=== PATIENT | male | born 1960 | race Caucasian/White ===

== ENCOUNTER 2018-10-18 03:41 | Emergency (ER) | payer OTHER ==
[2018-10-18] MEDS ORDERED: ETOMIDATE 20 MG/10 ML VIAL IV ONE (03:42)
[2018-10-18] MEDS ORDERED: NALOXONE 0.4 MG/ML VIAL ONE (05:11)
[2018-10-18] MEDS ORDERED: NA CHLORIDE 0.9% 1,000 ML ONE (05:11)
[2018-10-18] MEDS ORDERED: ONDANSETRON 4 MG/2 ML VIAL ONE (05:27)
[2018-10-18 05:50] LABS: ALT/SGPT 19 U/L (12-78); AST/SGOT 9 U/L (15-37); Albumin 3.3 g/dL (3.4-5.0); Alkaline Phosphatase 72 U/L (45-117); BUN Blood Urea Nitrogen 18 mg/dL (7-18); Bicarbonate 25 mmol/L (21-32); Bilirubin Total 0.9 mg/dL (0.2-1.0); Glucose Level 133 mg/dL (74-106); Potassium 3.5 mmol/L (3.5-5.1); Protein, Total 7.2 g/dL (6.4-8.2); Sodium Level 135 mmol/L (136-145)
[2018-10-18 06:22] LABS: Absolute Lymphocytes (CBC) 0.4 K/uL (0.7-4.9); Basophils % 0.1 % (0-1.3); Hematocrit 35.9 % (39.6-49.0); Lymphocytes % 2.5 % (15.3-44.8); MPV 9.5 fL (7.6-11.3); Monocytes % 6.7 % (3.3-12.3); RBC Red Blood Cell Count 4.01 M/uL (4.33-5.43)
[2018-10-18 07:12] LABS: Blood Morphology Comment NOT SEEN (NOT SEEN); Platelet Estimate ADEQ; Urine White Blood Cell Casts OK
[2018-10-18] MEDS ORDERED: VANCOMYCIN/NS 1 gm 1 GM/250 ML BAG IV ONE (07:30)
[2018-10-18] MEDS ORDERED: CEFTRIAXONE/SWI 1gm 1 GM/10 ML SYR ONE (07:33)
[2018-10-18] MEDS ORDERED: ACETAMINOPHEN 650MG/RECT SUPP PR ONE (07:55)
[2018-10-18] MEDS ORDERED: ACYCLOVIR INJ 800 MG in NA CHLORIDE 0.9% 100 ML IVPB ONE (08:00)
--- NOTE | 2018-10-18 08:04 | RAD REPORT ---
EXAM DESCRIPTION: RAD - Chest Single View - 10/18/2018 7:46 am CLINICAL HISTORY: Altered mental status, shortness of breath COMPARISON: None. TECHNIQUE: AP portable chest image was obtained 0742 hours . FINDINGS: No focal lung parenchymal process. No failure or volume overload. Heart and vasculature ar e normal. No measurable pleural effusion and no pneumothorax. No acute bony abnormality seen. No acut e aortic findings suspected. IMPRESSION: No acute cardiopulmonary process.
[2018-10-18] MEDS ORDERED: LORazepam 2 MG/ML VIAL ONE (08:07)
[2018-10-18] MEDS ORDERED: MIDAZOLAM HCL 2 MG/2 ML INJ ONE (08:07)
[2018-10-18] MEDS ORDERED: FENTANYL CITR 100 MCG/2 ML ONE (08:08)
[2018-10-18 08:12] LABS: Barbiturates NEGATIVE (NEGATIVE); Benzodiazepines NEGATIVE (NEGATIVE); Cocaine NEGATIVE (NEGATIVE); METHAMPHETAM NEGATIVE (NEGATIVE); Methadone NEGATIVE (NEGATIVE); Opiates POSITIVE (NEGATIVE); Phencyclidine NEGATIVE (NEGATIVE); THC Cannibis NEGATIVE (NEGATIVE)
[2018-10-18 08:15] LABS: Urine Blood NEGATIVE (NEG); Urine Glucose NEGATIVE (NEG); Urine Protein 1+ (NEG); Urine Specific Gravity 1.025 (1.005-1.030); Urine pH 5.5 (5.0-7.0)
[2018-10-18 09:12] LABS: CSF Glucose 32 mg/dL (40-70)
[2018-10-18 09:43] LABS: Urine Amorphous Sediment 1+ /HPF (NONE SEEN); Urine Bacteria NONE SEEN /HPF (NONE SEEN); Urine Culture Reflex Order NOT NEEDED; Urine Mucus HEAVY /HPF (NONE SEEN); Urine RBC <5 /HPF (NONE SEEN)
[2018-10-18] MEDS ORDERED: ASPIRIN 600 MG/SUPP PR ONE (09:45)
--- NOTE | 2018-10-18 09:47 | EDPHYS ---
Physician Documentation [facility] Name: Jared Cutler Age: 58 yrs Sex: Male : 1960 Arrival Date: 10/18/2018 Time: 03:42 Bed 3 Private MD: ED Physician Dl Peguero HPI: 10/18 05:48 This 58 yrs old Male presents to ER via Wheelchair with complaints of Head \T\ ps1 Neck Pain, Altered Mental Status. 05:48 patient had head and neck pain for 3 days. Was seen and evaluated by PCP and was given ps1 T3, Flexeril, and Phenergan. He has taken the medication for 2 days. He was on the couch and went to check on him. He was non-sensical and altered. He does not appear to have overdosed on medication. He is slow to respond but responds to his name and gives minimal history. at bedside providing history. He has not had a fever and attested to msk pain and spasm. . Historical: - Allergies: 03:59 No Known Allergies; tl2 - Home Meds: 03:59 None [Active]; tl2 - PMHx: 03:59 Degenerative disc disease; tl2 - PSHx: 03:59 None; tl2 - Immunization history:: Adult Immunizations up to date. - Social history:: Smoking status: Patient/guardian denies using tobacco. - Ebola Screening: : No symptoms or risks identified at this time. ROS: 05:48 Constitutional: Negative for fever, chills, and weight loss, Eyes: Negative for injury, ps1 pain, redness, and discharge, Cardiovascular: Negative for chest pain, palpitations, and edema, Respiratory: Negative for shortness of breath, cough, wheezing, and pleuritic chest pain, Abdomen/GI: Negative for abdominal pain, nausea, vomiting, diarrhea, and constipation. 05:48 Neck: Positive for bony tenderness. Exam: 05:48 Head/Face: Normocephalic, atraumatic. Eyes: Pupils equal round and reactive to light, ps1 extra-ocular motions intact. Lids and lashes normal. Conjunctiva and sclera are non-icteric and not injected. Chest/axilla: Normal chest wall appearance and motion. Nontender with no deformity. No lesions are appreciated. Cardiovascular: Regular rate and rhythm. No gallops, murmurs, or rubs. Normal PMI, no JVD. No pulse deficits. Respiratory: Lungs have equal breath sounds bilaterally, clear to auscultation and percussion. No rales, rhonchi or wheezes noted. No increased work of breathing, no retractions or nasal flaring. Abdomen/GI: Soft, non-tender, with normal bowel sounds. No distension or tympany. No guarding or rebound. No evidence of tenderness throughout. MS/ Extremity: Pulses equal, no cyanosis. Neurovascular intact. Full, normal range of motion. Neuro: Awake and alert, GCS 15, oriented to person, place, time, and situation. Cranial nerves II-XII grossly intact. Sensory grossly intact. Psych: Awake, alert, with orientation to person, place and time. Behavior, mood, and affect are within normal limits. 05:48 Constitutional: The patient appears in no acute distress, alert, awake, listless. Vital Signs: 03:48 BP 139 / 83; Pulse 76; Resp 18; Temp 98.7(A); Pulse Ox 95% on R/A; Weight 77.11 kg; tl2 Height 5 ft. 11 in. (180.34 cm); 04:33 BP 145 / 60; Pulse 52; Resp 18; Pulse Ox 100% on R/A; tl2 05:38 BP 150 / 70; Pulse 72; Resp 24; Pulse Ox 100% on NC; tl2 06:28 BP 140 / 73; Pulse 59; Resp 20; Temp 99.7(A); Pulse Ox 100% on R/A; tl2 07:36 Temp 101.7(R); sv 08:10 BP 118 / 71; Pulse 61; Resp 21; Pulse Ox 98% ; sv 08:30 BP 142 / 108; Pulse 62; Resp 25; Pulse Ox 100% on 2 lpm NC; sv 09:00 BP 98 / 82; Pulse 67; Resp 25; Temp 101.5(C); Pulse Ox 99% on 2 lpm NC; sv 09:15 BP 125 / 112; Pulse 68 MON; Resp 25; Temp 101.7(C); Pulse Ox 98% on 2 lpm NC; sv 09:37 BP 138 / 68; Pulse 71; Resp 26; Temp 101.4(C); Pulse Ox 100% on 2 lpm NC; sv 10:18 BP 152 / 52; Pulse 65; Resp 23; Temp 101.2(C); Pulse Ox 100% on 2 lpm NC; sv 10:35 BP 146 / 65; Pulse 91; Resp 18; Pulse Ox 100% on ETT ambu; sv 10:45 BP 147 / 69; Pulse 88; Resp 20; Temp 101.1(C); Pulse Ox 100% on ETT ambu; sv 11:04 BP 165 / 79; Pulse 66; Resp 18; Temp 100.9(C); Pulse Ox 100% on 100% FiO2 ETT vent; sv 03:48 Body Mass Index 23.71 (77.11 kg, 180.34 cm) tl2 09:15 Sinus Rhythm sv Procedures: 11:58 Intubation: Ventilated with 100% NRB prior to procedure. O2 saturation prior to jr8 procedure was 100 %. Intubated orally using # 4 Miguel blade with 7.5 mm ETT. was successful on first attempt. Ventilated with Ambu bag. ventilator. Cricoid pressure applied during procedure. Tube secured with ETT orona at center of mouth measured 23 cm at lip. Placement verified by CXR, CO2 detector with (+) color change, auscultating bilateral breath sounds, O2 saturation after procedure was 100 %. Patient tolerated well. Lumbar Puncture: Patient placed in left lateral decubitus position. Prepped with Betadine. Draped using sterile technique. Collected 8 ml's of cloudy fluid. Sample sent to lab. Puncture site dressed with band aid, Patient tolerated well. MDM: 04:53 Patient medically screened. ps1 09:39 Data reviewed: vital signs, nurses notes, lab test result(s), radiologic studies, CT jr8 scan, plain films. Data interpreted: Pulse oximetry: on room air is 100 %. Interpretation: normal. Counseling: I had a detailed discussion with the patient and/or guardian regarding: the historical points, exam findings, and any diagnostic results supporting the discharge/admit diagnosis, lab results, radiology results, the need to transfer to another facility, for higher level of care, [facility] does not immediately have the required specialist. 11:58 ED course: After patient was transferred to [place] by Dr. Peguero patient shortly after jr8 started to have abrupt decline in mental status. Upon further assessment of patient, he started to run fever and was not moving right side of body. Was fasciculating on right side and had hyperreflexia. Left side still with involuntary and voluntary movement. Patient covered with antibiotics and Lumbar puncture was completed. Concerning signs for meningitis noted upon assessment of CSF fluid. Charge Nurse, ID, and family notified of this and was later confirmed via cytology that patient more then likely dose have some type of infectious meningitis. Directigen and fungal stains were sent out urgently. [facility] was contacted and accepted patient for Neuro ICU. Family was notified routinely of status of patient and was very grateful . 11:58 ED course: Patient was electively intubated to maintain patent airway as patient became jr8 more obtunded. It was felt that at this time patient could not maintain his own airway due to condition and mental status. Intubation was successful . 10/18 04:53 Order name: CBC with Diff; Complete Time: 07:20 ps1 10/18 04:53 Order name: CMP; Complete Time: 06:13 ps1 10/18 04:53 Order name: Lactate; Complete Time: 06:13 ps1 10/18 04:53 Order name: Blood Culture Adult (2) ps1 10/18 06:38 Order name: CBC Smear Scan; Complete Time: 07:20 EDMS 10/18 07:03 Order name: CSF Bacterial Antigens (tube 1) ps1 10/18 07:03 Order name: Csf Culture ps1 10/18 07:03 Order name: Fluid Cell Count,Body; Complete Time: 10:12 ps1 10/18 07:03 Order name: Spinal Fluid Profile; Complete Time: 10:11 ps1 10/18 07:04 Order name: CSF Bacterial Antigens (Tube 1; Complete Time: 09:31 EDMS 10/18 07:35 Order name: Urine Drug Screen; Complete Time: 08:53 sv 10/18 07:42 Order name: Urine Microscopic Only; Complete Time: 09:49 ss 10/18 07:42 Order name: Urine Microscopic Only jr8 10/18 07:45 Order name: Urine Dipstick--Ancillary (enter results); Complete Time: 08:53 bd 10/18 04:53 Order name: CT Head C Spine; Complete Time: 13:28 ps1 10/18 07:03 Order name: CXR XRAY; Complete Time: 08:53 ps1 10/18 07:53 Order name: Magnesium; Complete Time: 08:53 sg 10/18 09:28 Order name: Miscellaneous Micro Reference; Complete Time: 10:09 EDMS 10/18 10:21 Order name: Fungal Culture and Stain EDMS 10/18 10:42 Order name: XRAY Chest (1 view); Complete Time: 11:18 jr8 10/18 07:03 Order name: Urine Dipstick-Ancillary (obtain specimen); Complete Time: 07:36 ps1 10/18 07:03 Order name: LP Consents; Complete Time: 07:14 ps1 10/18 07:03 Order name: LP Setup; Complete Time: 07:14 ps1 10/18 08:55 Order name: Misc. Order: droplet precautions; Complete Time: 08:55 ss 10/18 11:04 Order name: NG Tube; Complete Time: 11:04 sg Administered Medications: 05:05 Drug: NS 0.9% 1000 ml Route: IV; Rate: 1 bolus; Site: right antecubital; tl2 06:28 Follow up: IV Status: Completed infusion; IV Intake: 1000ml tl2 05:05 Drug: NARcan 0.4 mg Route: IVP; Site: right antecubital; tl2 05:30 Follow up: Response: No adverse reaction; No change in condition tl2 05:13 Drug: Zofran 4 mg Route: IVP; Site: right antecubital; tl2 05:30 Follow up: Response: No adverse reaction; Nausea is decreased tl2 07:48 Drug: Tylenol Suppository 650 mg {Note: administered by Milady BARTON} Route: ID; sg 08:30 Follow up: Response: No adverse reaction sv 07:56 Drug: Ativan 1 mg Route: IVP; Site: right antecubital; sv 08:30 Follow up: Response: No adverse reaction sv 07:57 Drug: Rocephin - (cefTRIAXone) 1 grams Route: IVPB; Infused Over: 30 mins; Site: right sv antecubital; 07:59 Follow up: Response: No adverse reaction; IV Status: Completed infusion; IV Intake: 10mlsv 07:59 Drug: vancoMYCIN 1 grams Route: IVPB; Infused Over: 2 hrs; Site: right antecubital; sv 10:17 Follow up: Response: No adverse reaction; IV Status: Completed infusion; IV Intake: sv 250ml 08:00 Not Given (Other Intervention Used): Acyclovir 100 mg IVPB once ss 08:05 Drug: fentaNYL (PF) 50 mcg Route: IVP; Site: right antecubital; sv 08:30 Follow up: Response: No adverse reaction sv 08:06 Drug: Versed 2 mg Route: IVP; Site: right antecubital; sv 08:30 Follow up: Response: No adverse reaction sv 09:05 Drug: Acyclovir 10 mg/kg Route: IVPB; Site: left forearm; sv 09:37 Drug: Aspirin Suppository 600 mg Route: ID; sv 10:18 Follow up: Response: No adverse reaction sv 10:17 Drug: NS 0.9% 1000 ml Route: IV; Rate: 100 ml/hr; Site: left forearm; sv 11:34 Follow up: Response: No adverse reaction; IV Status: Infusion continued upon transfer sv 10:29 Drug: Etomidate 10 mg Route: IVP; Site: left forearm; sv 10:45 Follow up: Response: No adverse reaction sv 10:30 Drug: Rocuronium 80 mg Route: IVP; Site: left forearm; sv 10:45 Follow up: Response: No adverse reaction sv 10:47 Not Given (other order): Versed 0.05 mg/kg IV at calculated rate once ss 11:34 CANCELLED (Physician Discretion): Versed 0.05 mg/kg/h IV at calculated rate once sv 18:17 CANCELLED (given back to pharmacy): fentaNYL (PF) 1 mcg/kg/h IV at calculated rate once sv Point of Care Testing: Blood Glucose: 03:50 Blood Glucose: 158 mg/dL; tl2 Ranges: Critical Glucose Levels:Adult <50 mg/dl or >400 mg/dl <40 mg/dl or >180 mg/dl Disposition: 22:16 Co-signature as Attending Physician, Dl Peguero MD Available for consultation at ps1 all times. . Disposition: 10/18/18 09:41 Transfer ordered to [facility]. Diagnosis is Meningitis in bacterial diseases classified elsewhere. - Reason for transfer: Higher level of care. - Accepting physician is Dr. Orozco . - Condition is Serious. - Problem is new. - Symptoms have worsened. Critical care time excluding procedures: 12:07 Critical care time: Bedside Care: 30 minutes, Consultation: 15 minutes, Family jr8 Intervention: 15 minutes. Total time: 60 minutes Signatures: Dispatcher [employer] Milady Cao, RN Tomas Bautista RN MANDY sg Yoselin Katz RN RN ss Roszak, Josh, PA PA jr8 Adela Jimenez, RN RN tl2 Dl Peguero MD MD ps1 Corrections: (The following items were deleted from the chart) 10:56 09:41 10/18/2018 09:41 Transfer ordered to [facility]. Diagnosis is jr8 Meningitis in bacterial diseases classified elsewhere. Reason for transfer: Higher level of care. Accepting physician is [facility]. Condition is Serious. Problem is new. Symptoms have worsened. jr8 11:20 10:56 10/18/2018 09:41 Transfer ordered to [facility]. Diagnosis is sg Meningitis in bacterial diseases classified elsewhere. Reason for transfer: Higher level of care. Accepting physician is Dr. Orozco . Condition is Serious. Problem is new. Symptoms have worsened. jr8 21:56 05:48 patient had head and neck pain for 3 days. Was seen and evaluated by PCP and was ps1 given T3, Flexeril, and Phenergan. He has taken the medication for 2 days. He was on the couch and went to check on him. He was non-sensical and altered. He does not appear to have overdosed on medication. He is slow to respond but responds to his name and gives minimal history. at bedside providing. . ps1
--- NOTE | 2018-10-18 09:47 | ER ---
Nurse's Notes [facility] Name: Jared Cutler Age: 58 yrs Sex: Male : 1960 Arrival Date: 10/18/2018 Time: 03:42 Bed 3 Private MD: Diagnosis: Meningitis in bacterial diseases classified elsewhere Presentation: 10/18 03:56 Presenting complaint: states: Pt c/o head/neck pain since Wednesday, loss of tl2 appetite. Saw PCP yesterday and was prescribed pain medication and referred to MRI. Pt states that she had a normal conversation with him at 10 pm and when she woke him up to take medication at 3 am this morning, he was confused and didn't know her name. Pt is lethargic, oriented to person only and slow to follow commands. Transition of care: patient was not received from another setting of care. Onset of symptoms was October 18, 2018 at 03:00. Risk Assessment: Do you want to hurt yourself or someone else? Patient reports no desire to harm self or others. Initial Sepsis Screen: Does the patient meet any 2 criteria? No. Patient's initial sepsis screen is negative. Does the patient have a suspected source of infection? No. Patient's initial sepsis screen is negative. Care prior to arrival: None. 03:56 Method Of Arrival: Wheelchair tl2 03:56 Acuity: CLIFFORD 2 tl2 Triage Assessment: 03:59 General: Appears in no apparent distress. unkempt, Behavior is drowsy, listless. Pain: tl2 Complains of pain in head and neck. Neuro: Level of Consciousness is awake, confused, lethargic, Oriented to person. Cardiovascular: Denies chest pain. Respiratory: Airway is patent Respiratory effort is even, unlabored, Respiratory pattern is regular, symmetrical. GI: Parent/caregiver reports the patient having anorexia, nausea. : No signs and/or symptoms were reported regarding the genitourinary system. Derm: Skin is pink, warm \T\ dry. Historical: - Allergies: 03:59 No Known Allergies; tl2 - Home Meds: 03:59 None [Active]; tl2 - PMHx: 03:59 Degenerative disc disease; tl2 - PSHx: 03:59 None; tl2 - Immunization history:: Adult Immunizations up to date. - Social history:: Smoking status: Patient/guardian denies using tobacco. - Ebola Screening: : No symptoms or risks identified at this time. Screenin:01 Abuse screen: Denies threats or abuse. Nutritional screening: No deficits noted. tl2 Tuberculosis screening: No symptoms or risk factors identified. Fall Risk Gait- Weak (10 pts.). Assessment: 03:59 General: see triage assessment. tl2 05:37 Reassessment: Patient appears in no apparent distress at this time. No changes from tl2 previously documented assessment. pt is restless but remains confused and altered. Will respond when spoken to but does not give appropriate response. Pt returned from CT, fluids infusing, VSS. 06:53 Reassessment: MD notified of increased temp, no new orders at this time. Reassessment: tl2 Patient appears in no apparent distress at this time. General: Behavior is restless. Neuro: Level of Consciousness is confused, lethargic. Neuro: Oriented to person. 07:10 General: Appears uncomfortable, well developed, Behavior is restless, uncooperative, sv not answering questions, unable to follow commands.. Informed Jude CRISOSTOMO of pt's reason for visit, pt status, not responsive, uncooperative, not moving the right arm or leg. Informed that the pt's spouse had informed me that last week he had been c/o head, neck pain and pain that had gone to the left side of the face. He went to [facility] in [place] [facility] and they told her he was tested for meningitis and was negative, an LP was not done. . Pain: Unable to use pain scale. Patient is disoriented. Does not appear to understand pain scale. Patient appears restless, FLACC scale score is 0 out of 10. Neuro: Level of Consciousness is confused, lethargic, listless, obtunded, Oriented to none Full function in left arm(s) leg(s) does not move the right arm or leg. Speech not speaking. Facial symmetry appears normal. Cardiovascular: Heart tones S1 S2 present Pulses are 3+ in right radial artery and left radial artery Rhythm is sinus rhythm. Respiratory: Airway is patent Respiratory effort is even, unlabored, Respiratory pattern is symmetrical, tachypnea Breath sounds are clear bilaterally. GI: Abdomen is flat. Derm: Skin is dry, Skin is normal, Skin temperature is hot. 07:38 Reassessment: No changes from previously documented assessment. Patient and/or family sv updated on plan of care and expected duration. Pain level reassessed. Informed Jude CRISOSTOMO of rectal temp, Jude CRISOSTOMO to bedside to assess pt. 08:00 Reassessment: No changes from previously documented assessment. Patient and/or family sv updated on plan of care and expected duration. Pain level reassessed. Jude CRISOSTOMO at bedside to get ready for the LP. 08:30 Reassessment: No changes from previously documented assessment. Patient and/or family sv updated on plan of care and expected duration. Pain level reassessed. 09:05 Reassessment: No changes from previously documented assessment. Patient and/or family sv updated on plan of care and expected duration. Pain level reassessed. 09:37 Reassessment: No changes from previously documented assessment. Patient and/or family sv updated on plan of care and expected duration. Pain level reassessed. 10:20 Reassessment: No changes from previously documented assessment. Patient and/or family sv updated on plan of care and expected duration. Pain level reassessed. Jude CRISOSTOMO and bedside with myself and Carole SANDOVAL to get ready for intubation. 11:00 Reassessment: Patient appears in no apparent distress at this time. Patient and/or sv family updated on plan of care and expected duration. Pain level reassessed. Pt is intubated at this time. 11:02 Reassessment: life flight at bedside at this time. Vital Signs: 03:48 BP 139 / 83; Pulse 76; Resp 18; Temp 98.7(A); Pulse Ox 95% on R/A; Weight 77.11 kg; tl2 Height 5 ft. 11 in. (180.34 cm); 04:33 BP 145 / 60; Pulse 52; Resp 18; Pulse Ox 100% on R/A; tl2 05:38 BP 150 / 70; Pulse 72; Resp 24; Pulse Ox 100% on NC; tl2 06:28 BP 140 / 73; Pulse 59; Resp 20; Temp 99.7(A); Pulse Ox 100% on R/A; tl2 07:36 Temp 101.7(R); sv 08:10 BP 118 / 71; Pulse 61; Resp 21; Pulse Ox 98% ; sv 08:30 BP 142 / 108; Pulse 62; Resp 25; Pulse Ox 100% on 2 lpm NC; sv 09:00 BP 98 / 82; Pulse 67; Resp 25; Temp 101.5(C); Pulse Ox 99% on 2 lpm NC; sv 09:15 BP 125 / 112; Pulse 68 MON; Resp 25; Temp 101.7(C); Pulse Ox 98% on 2 lpm NC; sv 09:37 BP 138 / 68; Pulse 71; Resp 26; Temp 101.4(C); Pulse Ox 100% on 2 lpm NC; sv 10:18 BP 152 / 52; Pulse 65; Resp 23; Temp 101.2(C); Pulse Ox 100% on 2 lpm NC; sv 10:35 BP 146 / 65; Pulse 91; Resp 18; Pulse Ox 100% on ETT ambu; sv 10:45 BP 147 / 69; Pulse 88; Resp 20; Temp 101.1(C); Pulse Ox 100% on ETT ambu; sv 11:04 BP 165 / 79; Pulse 66; Resp 18; Temp 100.9(C); Pulse Ox 100% on 100% FiO2 ETT vent; sv 03:48 Body Mass Index 23.71 (77.11 kg, 180.34 cm) tl2 09:15 Sinus Rhythm sv ED Course: 03:42 Patient arrived in ED. ds1 03:59 Triage completed. tl2 03:59 Arm band placed on right wrist. tl2 04:02 Dl Peguero MD is Attending Physician. ps1 04:06 Inserted saline lock: 20 gauge in right antecubital area, using aseptic technique. tl2 Blood collected. 04:33 Adela Jimenez RN is Primary Nurse. tl2 05:44 CT Head C Spine In Process Unspecified. EDMS 07:06 Report given to MANDY Henning. tl2 07:07 Jude Perez PA is PHCP. jr8 07:14 Consent for a lumbar puncture explained by staff, signed by spouse. sv 07:23 Radiology exam delayed due to nurse straight cathing pt. ls3 07:35 Straight cath inserted, using sterile technique, 16 Fr. Specimen obtained. Returned sv margy urine. Patient tolerated poorly. 07:45 CXR XRAY In Process Unspecified. EDMS 08:09 Assist provider with lumbar puncture: Set up LP tray. Performed by Jude CRISOSTOMO CSF sv is cloudy. Sample collected. Sample sent to lab. Puncture site dressed with band aid, Procedure was successful. Patient tolerated poorly. 09:00 Inserted saline lock: 20 gauge in left forearm, using aseptic technique. Flushed left sv forearm with 5 ml normal saline. 09:03 Primary Nurse role handed off by Adela Jimenez RN sv 09:03 Milady Alejandro RN is Primary Nurse. sv 09:39 Urine Microscopic Only Sent. sv 09:39 CSF Bacterial Antigens (tube 1) Sent. sv 10:32 Assisted provider with intubation using 7.5 mm ETT via oral route. ET tube secured at sv 23cm at the teeth. Set up intubation tray. Intubated by Jude CRISOSTOMO Placement verified by CXR, CO2 detector w/ + color change, auscultating bilateral breath sounds, Patient tolerated well. 10:50 Valuables Left with patient. bd 10:51 XRAY Chest (1 view) In Process Unspecified. EDMS 11:03 NGT: inserted 14 Fr. via left nare. verified placement of air over stomach, verified sg return of gastric contents, to intermittent suction. Patient tolerated well. pt to have continued low intermittent suction in route to [facility]. 11:15 Patient transferred, IV remains in place. intact. sv Administered Medications: 05:05 Drug: NS 0.9% 1000 ml Route: IV; Rate: 1 bolus; Site: right antecubital; tl2 06:28 Follow up: IV Status: Completed infusion; IV Intake: 1000ml tl2 05:05 Drug: NARcan 0.4 mg Route: IVP; Site: right antecubital; tl2 05:30 Follow up: Response: No adverse reaction; No change in condition tl2 05:13 Drug: Zofran 4 mg Route: IVP; Site: right antecubital; tl2 05:30 Follow up: Response: No adverse reaction; Nausea is decreased tl2 07:48 Drug: Tylenol Suppository 650 mg {Note: administered by Milady GALVAN.} Route: DC; sg 08:30 Follow up: Response: No adverse reaction sv 07:56 Drug: Ativan 1 mg Route: IVP; Site: right antecubital; sv 08:30 Follow up: Response: No adverse reaction sv 07:57 Drug: Rocephin - (cefTRIAXone) 1 grams Route: IVPB; Infused Over: 30 mins; Site: right sv antecubital; 07:59 Follow up: Response: No adverse reaction; IV Status: Completed infusion; IV Intake: 10mlsv 07:59 Drug: vancoMYCIN 1 grams Route: IVPB; Infused Over: 2 hrs; Site: right antecubital; sv 10:17 Follow up: Response: No adverse reaction; IV Status: Completed infusion; IV Intake: sv 250ml 08:00 Not Given (Other Intervention Used): Acyclovir 100 mg IVPB once ss 08:05 Drug: fentaNYL (PF) 50 mcg Route: IVP; Site: right antecubital; sv 08:30 Follow up: Response: No adverse reaction sv 08:06 Drug: Versed 2 mg Route: IVP; Site: right antecubital; sv 08:30 Follow up: Response: No adverse reaction sv 09:05 Drug: Acyclovir 10 mg/kg Route: IVPB; Site: left forearm; sv 09:37 Drug: Aspirin Suppository 600 mg Route: DC; sv 10:18 Follow up: Response: No adverse reaction sv 10:17 Drug: NS 0.9% 1000 ml Route: IV; Rate: 100 ml/hr; Site: left forearm; sv 11:34 Follow up: Response: No adverse reaction; IV Status: Infusion continued upon transfer sv 10:29 Drug: Etomidate 10 mg Route: IVP; Site: left forearm; sv 10:45 Follow up: Response: No adverse reaction sv 10:30 Drug: Rocuronium 80 mg Route: IVP; Site: left forearm; sv 10:45 Follow up: Response: No adverse reaction sv 10:47 Not Given (other order): Versed 0.05 mg/kg IV at calculated rate once ss 11:34 CANCELLED (Physician Discretion): Versed 0.05 mg/kg/h IV at calculated rate once sv 18:17 CANCELLED (given back to pharmacy): fentaNYL (PF) 1 mcg/kg/h IV at calculated rate once sv Point of Care Testing: Blood Glucose: 03:50 Blood Glucose: 158 mg/dL; tl2 Ranges: Intake: 06:28 IV: 1000ml; Total: 1000ml. tl2 07:59 IV: 10ml; Total: 1010ml. sv 10:17 IV: 250ml; Total: 1260ml. sv Outcome: 09:41 ER care complete, transfer ordered by . jr8 11:20 Patient left the ED. sg 11:31 Transferred by helicopter to [facility], [facility], Transfer form completed. sv X-rays sent w/ patient. Note: Report given to Ronn from [facility] 11:31 Condition: unchanged 11:31 Instructed on the need for transfer. Signatures: Dispatcher [employer] EDMS Clarissa Hull Milady Alejandro RN MANDY Tomas Hewitt RN RN Jena Ravi ds1 Jude Perez PA PA jr8 Adela Jimenez RN RN tl2 Soha Andino RN RN ea Dl Peguero MD MD ps1 Siler, Lynzie 3 Yoselin Katz RN ss Corrections: (The following items were deleted from the chart) 04:34 03:48 BP 139 / 83; Pulse 76bpm; Resp 18bpm; Pulse Ox 95% RA; ea tl2 06:47 06:28 BP 140 / 73; Pulse 59bpm; Resp 20bpm; Pulse Ox 100% RA; tl2 tl2 10:50 10:37 Valuables Given to family. bd bd 11:51 11:04 BP 165 / 79; Pulse 66bpm; Resp 18bpm; Pulse Ox 100% FiO2 50% vent; Temp 100.9F sv Catheter; sg 12:17 07:10 General: Appears uncomfortable, well developed, Behavior is restless, sv uncooperative, not answering questions, unable to follow commands.. sv
[2018-10-18 10:08] LABS: Fluid Total Volume 8 ml
[2018-10-18 10:09] LABS: Appearance TURBID (CLEAR); Body Fluid Source CSF; Color of fluid White (COLORLESS)
[2018-10-18 10:10] LABS: Body Fluid WBC 3895 /mm^3
[2018-10-18 10:11] LABS: Appearance TURBID (CLEAR); Body Fluid Source CSF; Body Fluid WBC 3535 /mm^3; Color of fluid White (COLORLESS)
[2018-10-18] MEDS ORDERED: RSI MEDICATION KIT IV ONE (10:24)
[2018-10-18] MEDS ORDERED: ROCURONIUM 50 MG/5 ML VIAL IV ONE ×2 (10:30→10:39)
[2018-10-18] MEDS ORDERED: FENTANYL IV PRN (10:44)
[2018-10-18] MEDS ORDERED: SODIUM CHLORIDE IV PRN (10:44)
[2018-10-18] MEDS ORDERED: MIDAZOLAM HCL 100 MG in NA CHLORIDE 0.9% 80 ML IV PRN (10:45)
--- NOTE | 2018-10-18 10:48 | RAD REPORT ---
EXAM DESCRIPTION: CT - Head C Spine Mpr Wo Con - 10/18/2018 6:45 am CLINICAL HISTORY: The patient is 58 years old and is Male; PAIN TECHNIQUE: Axial computed tomography images of the head/brain and cervical spine without intravenous contrast. Sagittal and coronal reformatted images were created and reviewed. This CT exam was pe rformed using one or more of the following dose reduction techniques: automated exposure control, a djustment of the mA and/or kV according to patient size, and/or use of iterative reconstruction techn ique. COMPARISON: No relevant prior studies available. FINDINGS: BRAIN: Unremarkable. No hemorrhage. No significant white matter disease. No edema. VENTRICLES: Unremarkable. No ventriculomegaly. SKULL: No acute fracture. SINUSES: compleat opacification of the left maxillary sinus and sphenoid sinuses is noted. Compl ete opacification of the left frontal sinus is present. Near complete opacification of the ethmoid ai r cells is noted. MASTOID AIR CELLS: Unremarkable as visualized. No mastoid effusion. VERTEBRAE: The vertebral body heights and alignment are maintained. No acute fracture. DISCS/SPINAL CANAL/NEURAL FORAMINA: There is multi-level intervertebral disc height loss. There are disc-osteophyte complexes at several levels, with associated mild spinal canal narrowing. There i s also facet hypertrophy and uncovertebral joint osteophytosis, with associated multilevel neural for aminal narrowing. SOFT TISSUES: The soft tissues are normal. LUNG APICES: The lung apices are clear. IMPRESSION: 1. No acute intracranial findings. 2. Findings suggestive of near complete pansinusitis. 3. No fracture or malalignment of the cervical spine. Mild to moderate spondylosis. Electronically signed by: Cony Smith MD 10/18/2018 5:52 AM CDT Due to temporary technical issues with the PACS/Fluency reporting system, reports are being signed by the in house radiologist as a courtesy to ensure prompt reporting. The interpreting radiologist is f ully responsible for the content of the report.
[2018-10-18] MEDS ORDERED: FENTANYL/NS PCA 500 MCG/50 ML SYR IV PRN (11:00)
--- NOTE | 2018-10-18 11:13 | RAD REPORT ---
EXAM DESCRIPTION: RAD - Chest Single View - 10/18/2018 10:55 am CLINICAL HISTORY: Intubation, respiratory distress COMPARISON: October 18 TECHNIQUE: AP portable chest image was obtained 1049 hours . FINDINGS: Endotracheal tube tip is at the T2-3 level. This is several cm above the aortic arch. [employer] vignesh interstitial lung disease is present accentuated by slightly shallow inspiration and supine posit ioning. No diffuse pulmonary edema or acute lung parenchymal process suspected. Heart and vasculature are normal. No measurable pleural effusion and no pneumothorax. No acute bony abnormality seen. No acute aortic findings suspected. IMPRESSION: ET tube is in place with the tip at the T2-3 level well above the aortic arch. Chronic interstitial changes are present in the lung ramirez. No diffuse pulmonary edema or focal infi ltrate.
== END 2018-10-18 11:20 | disposition short-term general hospital (02) ==
LOC: ER 03:41
PROC: 0BH17EZ Insertion of Endotracheal Airway into Trachea, Via Natural or Artificial Opening (ICD-10-PCS; principal; 2018-10-18)
PROC: 5A1935Z Respiratory Ventilation, Less than 24 Consecutive Hours (ICD-10-PCS; 2018-10-18)
PROC: 009U3ZX Drainage of Spinal Canal, Percutaneous Approach, Diagnostic (ICD-10-PCS; 2018-10-18)
DX: G00.9 Bacterial meningitis, unspecified (principal)
CPT/HCPCS: 31500; 36415; 51702; 62270; 70450; 71045; 72125; 80053; 80307; 81003; 81015; 82945; 82962; 83605; 83735; 84157; 85025; 87015; 87040; 87070; 87102; 87116; 87206; 89050; 99291; 99292; J0133; J0696; J2250; J2310; J2405; J3010; J3370; J7030

== ENCOUNTER 2019-02-06 16:13 | Emergency (ER) | payer OTHER ==
[2019-02-06] MEDS ORDERED: ACETAMINOPHEN 500 MG TAB ONE (16:57)
[2019-02-06 19:18] LABS: Protime INR 0.91
[2019-02-06 19:25] LABS: ALT/SGPT 33 U/L (12-78); AST/SGOT 17 U/L (15-37); Albumin 3.7 g/dL (3.4-5.0); Alkaline Phosphatase 82 U/L (45-117); BUN Blood Urea Nitrogen 24 mg/dL (7-18); Bicarbonate 30 mmol/L (21-32); Bilirubin Direct 0.2 mg/dL (0-0.2); Bilirubin Total 0.5 mg/dL (0.2-1.0); Glucose Level 95 mg/dL (74-106); Potassium 3.9 mmol/L (3.5-5.1); Protein, Total 6.8 g/dL (6.4-8.2); Sodium Level 142 mmol/L (136-145)
[2019-02-06 19:29] LABS: Absolute Lymphocytes (CBC) 1.2 K/uL (0.7-4.9); Basophils % 0.5 % (0-1.3); Hematocrit 34.4 % (39.6-49.0); MPV 8.6 fL (7.6-11.3); RBC Red Blood Cell Count 3.75 M/uL (4.33-5.43)
--- NOTE | 2019-02-06 19:42 | RAD REPORT ---
EXAM DESCRIPTION: CT - Pelvis Wo Cont - 02/06/2019 7:04 pm CLINICAL HISTORY: fall. R hip pain;Blunt trauma COMPARISON: None. TECHNIQUE: Axial noncontrast 2 millimeter thick images of the pelvis performed. Sagittal and coronal reformatted images generated and reviewed. The CT scan was performed using dose optimization techniques as appropriate to a performed exam incl uding one or more of the following: Automated exposure control, adjustment of the mA and/or kV accord ing to patient size (this includes techniques or standardized protocols for targeted exams where dose is matched to indication/reason for exam) and use of iterative reconstruction technique. FINDINGS: Lower lumbar facet joint degenerative change present. No compression fracture of L4 or L5. Sacral ala are intact. SI joint degenerative change is very minimal. No fracture of the bony pelvis. No proximal left femur fracture. Right femoral head and neck are intact. Several fracture planes traverse the greater trochanter. No s ignificant displacement or angulation deformity. No pathologic component. No periarticular mass or he matoma. IMPRESSION: Several small fracture planes are present traversing the greater trochanter. No signific ant distraction. No extension deeper into the intertrochanteric portion of the femur and no femoral head or neck invol vement.
--- NOTE | 2019-02-06 19:55 | RAD REPORT ---
EXAM DESCRIPTION: RAD - Hip Right 2 View - 02/06/2019 6:24 pm CLINICAL HISTORY: Fall, hip pain COMPARISON: None. FINDINGS: AP and frog-leg views of the right hip were obtained. Nondisplaced fractures involve the superior aspect of the right greater trochanter. No extension into the intertrochanteric portion. Rig ht femoral head and neck are intact. No acute or destructive bony process seen. IMPRESSION: Fractures are present without distraction at the superior aspect greater trochanter on t he right.
--- NOTE | 2019-02-06 19:55 | RAD REPORT ---
EXAM DESCRIPTION: RAD - Pelvis - 02/06/2019 6:24 pm CLINICAL HISTORY: Fall, right-sided hip pain COMPARISON: None. TECHNIQUE: AP imaging of the pelvis was obtained. FINDINGS: No fracture of the bony pelvis present. No fracture or dislocation of either proximal femo ral head or neck. Nondisplaced fracture involves the superior aspect of the right greater trochanter. No distraction or angulation deformities. No evidence for extension into the intertrochanteric porti on. IMPRESSION: Nondisplaced fractures involving the superior aspect right
--- NOTE | 2019-02-06 21:40 | EDPHYS ---
Physician Documentation [facility] Name: Jared Cutler Age: 58 yrs Sex: Male : 1960 Arrival Date: 02/06/2019 Time: 16:17 Bed 18 Private MD: ED Physician David Poole HPI: 02/06 17:07 This 58 yrs old Male presents to ER via Wheelchair with complaints of Fall wa Injury, Hip Pain. 17:07 Details of fall: The patient fell from an upright position, while walking. Onset: The wa symptoms/episode began/occurred yesterday. Associated injuries: The patient sustained right hip, painful injury. Severity of symptoms: At their worst the symptoms were moderate, in the emergency department the symptoms are unchanged. The patient has not experienced similar symptoms in the past. The patient has not recently seen a physician. states took a fall yesterday from a mis-step. denies hitting head or LOC. c/o pain in R hip with ambulation. Historical: - Allergies: 16:29 No Known Allergies; aj1 - Home Meds: 16:29 None [Active]; aj1 - PMHx: 16:29 Degenerative disc disease; CVA; menengitis; aj1 - Immunization history:: Adult Immunizations up to date. - Social history:: Smoking status: Patient/guardian denies using tobacco. - Ebola Screening: : Patient denies travel to an Ebola-affected area in the 21 days before illness onset. - Family history:: not pertinent. - Hospitalizations: : No recent hospitalization is reported. ROS: 17:11 Constitutional: Negative for fever, chills, and weight loss, Eyes: Negative for injury, wa pain, redness, and discharge, ENT: Negative for injury, pain, and discharge, Neck: Negative for injury, pain, and swelling, Cardiovascular: Negative for chest pain, palpitations, and edema, Respiratory: Negative for shortness of breath, cough, wheezing, and pleuritic chest pain, Abdomen/GI: Negative for abdominal pain, nausea, vomiting, diarrhea, and constipation, Back: Negative for injury and pain, : Negative for injury, bleeding, discharge, and swelling, Skin: Negative for injury, rash, and discoloration, Neuro: Negative for headache, weakness, numbness, tingling, and seizure, Psych: Negative for depression, anxiety, suicide ideation, homicidal ideation, and hallucinations. 17:11 MS/extremity: Positive for pain, tenderness, of the right hip. 21:39 All other systems are negative. wa Exam: 17:11 Constitutional: This is a well developed, well nourished patient who is awake, alert, wa and in no acute distress. Head/Face: Normocephalic, atraumatic. Eyes: Pupils equal round and reactive to light, extra-ocular motions intact. Lids and lashes normal. Conjunctiva and sclera are non-icteric and not injected. Cornea within normal limits. Periorbital areas with no swelling, redness, or edema. ENT: Nares patent. No nasal discharge, no septal abnormalities noted. Tympanic membranes are normal and external auditory canals are clear. Oropharynx with no redness, swelling, or masses, exudates, or evidence of obstruction, uvula midline. Mucous membranes moist. Neck: Trachea midline, no thyromegaly or masses palpated, and no cervical lymphadenopathy. Supple, full range of motion without nuchal rigidity, or vertebral point tenderness. No Meningismus. Chest/axilla: Normal chest wall appearance and motion. Nontender with no deformity. No lesions are appreciated. Cardiovascular: Regular rate and rhythm with a normal S1 and S2. No gallops, murmurs, or rubs. Normal PMI, no JVD. No pulse deficits. Respiratory: Lungs have equal breath sounds bilaterally, clear to auscultation and percussion. No rales, rhonchi or wheezes noted. No increased work of breathing, no retractions or nasal flaring. Abdomen/GI: Soft, non-tender, with normal bowel sounds. No distension or tympany. No guarding or rebound. No evidence of tenderness throughout. Back: No spinal tenderness. No costovertebral tenderness. Full range of motion. Skin: Warm, dry with normal turgor. Normal color with no rashes, no lesions, and no evidence of cellulitis. Neuro: Awake and alert, GCS 15, oriented to person, place, time, and situation. Cranial nerves II-XII grossly intact. Motor strength 5/5 in all extremities. Sensory grossly intact. Cerebellar exam normal. Normal gait. Psych: Awake, alert, with orientation to person, place and time. Behavior, mood, and affect are within normal limits. 17:11 Musculoskeletal/extremity: Extremities: grossly normal except: noted in the right hip: tenderness. Vital Signs: 16:29 BP 121 / 59; Pulse 83; Resp 18; Temp 99.3; Pulse Ox 100% on R/A; Weight 73.94 kg (R); aj1 Height 6 ft. 3 in. (190.50 cm) (R); 17:50 BP 125 / 65; Pulse 74; Resp 16 S; Pulse Ox 100% ; ca1 19:12 BP 116 / 64; Pulse 71; Resp 16 S; Pulse Ox 100% on R/A; ca1 20:10 BP 121 / 79; Pulse 70; Resp 16; Temp 99; Pulse Ox 99% on R/A; rr5 21:00 BP 119 / 70; Pulse 80; Resp 19; Pulse Ox 98% ; rr5 21:50 BP 137 / 83; Pulse 75; Resp 19; Temp 99.2; Pulse Ox 99% on R/A; rr5 23:00 BP 123 / 62; Pulse 81; Resp 15; Temp 99; Pulse Ox 100% ; rr5 16:29 Body Mass Index 20.37 (73.94 kg, 190.50 cm) aj1 MDM: 16:38 Patient medically screened. ky 17:11 Differential diagnosis: contusion, fracture, sprain, strain. ky 20:25 Data reviewed: vital signs, nurses notes. Test interpretation: by ED physician or ky midlevel provider: labs noted essentially within nml limits. x-ray and CT noted R intertroch fx. . Response to treatment: the patient's symptoms have mildly improved after treatment. 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 will initiate transfer for fx. 21:36 ED course: accepted for further eval and tx by Dr. Hennessy at [facility]. will effect ky transfer. 02/06 18:41 Order name: Basic Metabolic Panel; Complete Time: 20:24 ky 02/06 18:41 Order name: CBC with Diff; Complete Time: 20:24 ky 02/06 16:49 Order name: Hip Right 2 View XRAY; Complete Time: 20:03 ky 02/06 16:50 Order name: XRAY Pelvis; Complete Time: 20:04 ky 02/06 18:41 Order name: Hepatic Function; Complete Time: 20:25 ky 02/06 18:41 Order name: PT-INR; Complete Time: 20:24 ky 02/06 18:41 Order name: IV; Complete Time: 18:59 ky 02/06 18:41 Order name: Labs collected and sent; Complete Time: 18:59 ky 02/06 18:41 Order name: CT Pelvis wo Cont; Complete Time: 20:05 ky Administered Medications: 16:58 Drug: Tylenol 1000 mg Route: PO; ca1 18:59 Follow up: Response: No adverse reaction; Pain is decreased ca1 Disposition: 02/06/19 21:38 Transfer ordered to [facility]. Diagnosis are Right Intertrochanteric fracture, fall . - Reason for transfer: Higher level of care. - Accepting physician is Dr. Hennessy. - Condition is Stable. - Problem is new. - Symptoms have improved. Signatures: Dispatcher [employer] EDSonia Winston, RN RN aj1 David Poole MD MD wa Roque, Raymond, RN RN rr5 Charmaine Samson RN RN ca1 Corrections: (The following items were deleted from the chart) 23:40 21:38 02/06/2019 21:38 Transfer ordered to [facility]. rr5 Diagnosis is Right Intertrochanteric fracture; fall . Reason for transfer: Higher level of care. Accepting physician is Dr. Hennessy. Condition is Stable. Problem is new. Symptoms have improved. wa
--- NOTE | 2019-02-06 21:40 | ER ---
Nurse's Notes [facility] Name: Jared Cutler Age: 58 yrs Sex: Male : 1960 Arrival Date: 02/06/2019 Time: 16:17 Bed 18 Private MD: Diagnosis: Right Intertrochanteric fracture;fall Presentation: 02/06 16:26 Presenting complaint: He fell at 2100 last night and he is now having pain to right aj1 hip. Patient was recently discharged home after having a stroke 4 months ago. Transition of care: patient was not received from another setting of care. Onset of symptoms was February 05, 2019 at 21:00. Risk Assessment: Do you want to hurt yourself or someone else? Patient reports no desire to harm self or others. Initial Sepsis Screen: Does the patient meet any 2 criteria? No. Patient's initial sepsis screen is negative. Does the patient have a suspected source of infection? No. Patient's initial sepsis screen is negative. Care prior to arrival: None. 16:26 Method Of Arrival: Wheelchair aj 16:26 Acuity: CLIFFORD 3 aj1 Triage Assessment: 16:29 General: Appears in no apparent distress. comfortable, Behavior is calm, cooperative, aj1 appropriate for age. Pain: Complains of pain in right hip Pain currently is 6 out of 10 on a pain scale. Neuro: Level of Consciousness is awake, alert, obeys commands. Cardiovascular: Patient's skin is warm and dry. Respiratory: Airway is patent Respiratory effort is even, unlabored, Respiratory pattern is regular, symmetrical. Historical: - Allergies: 16:29 No Known Allergies; aj1 - Home Meds: 16:29 None [Active]; aj1 - PMHx: 16:29 Degenerative disc disease; CVA; menengitis; aj1 - Immunization history:: Adult Immunizations up to date. - Social history:: Smoking status: Patient/guardian denies using tobacco. - Ebola Screening: : Patient denies travel to an Ebola-affected area in the 21 days before illness onset. - Family history:: not pertinent. - Hospitalizations: : No recent hospitalization is reported. Screenin:42 Abuse screen: Denies threats or abuse. Denies injuries from another. Nutritional ca1 screening: No deficits noted. Tuberculosis screening: No symptoms or risk factors identified. Fall Risk Fall in past 12 months (25 points). Secondary diagnosis (15 points) CVA, Ambulatory Aid- Crutches/Cane/Walker (15 pts). Gait- Impaired (20 pts.). Total Sanders Fall Scale indicates High Risk Score (45 or more points). Fall prevention measures have been instituted. Side Rails Up X 2 Frequent Obs/Assessments Occuring Family Present and informed to notify staff if the need to leave the bedside As available patient and family educated on Fall Prevention Program and Strategies. Assessment: 16:42 General: Appears in no apparent distress. comfortable, Behavior is calm, cooperative, ca1 appropriate for age. Pain: Complains of pain in pelvis and right hip Pain currently is 6 out of 10 on a pain scale. Pain began 1 day ago. Neuro: Level of Consciousness is awake, alert, obeys commands, Oriented to person, place, time, situation, Appropriate for age. Derm: Skin is intact, is healthy with good turgor, Skin is pink, warm \T\ dry. Musculoskeletal: Circulation, motion, and sensation intact. Capillary refill < 3 seconds, Range of motion: intact in all extremities. 17:50 Reassessment: Patient appears in no apparent distress at this time. Patient and/or ca1 family updated on plan of care and expected duration. Pain level reassessed. Patient is alert, oriented x 3, equal unlabored respirations, skin warm/dry/pink. 19:12 Reassessment: Patient appears in no apparent distress at this time. Patient and/or ca1 family updated on plan of care and expected duration. Pain level reassessed. Patient is alert, oriented x 3, equal unlabored respirations, skin warm/dry/pink. 19:15 General: Appears in no apparent distress. comfortable, Behavior is calm, cooperative, rr5 appropriate for age. Pain: Complains of pain in right hip Pain currently is 6 out of 10 on a pain scale. Quality of pain is described as aching, Pain began 1 day ago. Is intermittent. Neuro: Level of Consciousness is awake, alert, obeys commands, Oriented to person, place, time, situation, right sided paralysis. Cardiovascular: Capillary refill < 3 seconds Patient's skin is warm and dry. Respiratory: Airway is patent Respiratory effort is even, unlabored, Respiratory pattern is regular, symmetrical. GI: No signs and/or symptoms were reported involving the gastrointestinal system. : No signs and/or symptoms were reported regarding the genitourinary system. 19:15 EENT: No signs and/or symptoms were reported regarding the EENT system. Derm: Skin is rr5 intact, Skin is pink, warm \T\ dry. Musculoskeletal: Capillary refill < 3 seconds, Range of motion: limited in right side. 20:10 Reassessment: Patient appears in no apparent distress at this time. Patient is alert, rr5 oriented x 3, equal unlabored respirations, skin warm/dry/pink. awaiting for result. 20:50 Reassessment: Patient appears in no apparent distress at this time. 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 patient agreed for the plan of care. 21:05 Reassessment: Patient appears in no apparent distress at this time. No changes from rr5 previously documented assessment. Patient and/or family updated on plan of care and expected duration. Pain level reassessed. awaiting for transfer. 22:00 Reassessment: called [facility] staff nurse jenifer informed and accepted the case. rr5 22:00 Reassessment: Patient appears in no apparent distress at this time. Patient and/or 5 family updated on plan of care and expected duration. Pain level reassessed. patients refused to be transfer unless approve by their insurance. 22:30 Reassessment: patients agreed to be transfer in [facility] she confirm to their [facility] insurance about the approval. 23:10 Reassessment: Patient appears in no apparent distress at this time. Patient is alert, rr5 oriented x 3, equal unlabored respirations, skin warm/dry/pink. endorsed to [facility], patient is awake vitally stable no complaints made. Vital Signs: 16:29 BP 121 / 59; Pulse 83; Resp 18; Temp 99.3; Pulse Ox 100% on R/A; Weight 73.94 kg (R); aj1 Height 6 ft. 3 in. (190.50 cm) (R); 17:50 BP 125 / 65; Pulse 74; Resp 16 S; Pulse Ox 100% ; ca1 19:12 BP 116 / 64; Pulse 71; Resp 16 S; Pulse Ox 100% on R/A; ca1 20:10 BP 121 / 79; Pulse 70; Resp 16; Temp 99; Pulse Ox 99% on R/A; rr5 21:00 BP 119 / 70; Pulse 80; Resp 19; Pulse Ox 98% ; rr5 21:50 BP 137 / 83; Pulse 75; Resp 19; Temp 99.2; Pulse Ox 99% on R/A; rr5 23:00 BP 123 / 62; Pulse 81; Resp 15; Temp 99; Pulse Ox 100% ; rr5 16:29 Body Mass Index 20.37 (73.94 kg, 190.50 cm) aj1 ED Course: 16:17 Patient arrived in ED. am2 16:28 Triage completed. aj1 16:29 Arm band placed on Patient placed in an exam room. aj1 16:38 David Poole MD is Attending Physician. wa 16:42 Patient has correct armband on for positive identification. Bed in low position. Call ca1 light in reach. Side rails up X 1. Pulse ox on. NIBP on. Warm blanket given. 16:42 No provider procedures requiring assistance completed. Patient did not have IV access ca1 during this emergency room visit. 16:49 Charmaine Samson RN is Primary Nurse. ca1 18:26 Hip Right 2 View XRAY In Process Unspecified. EDMS 18:26 XRAY Pelvis In Process Unspecified. EDMS 18:50 Initial lab(s) drawn, by me, sent to lab. Inserted saline lock: 20 gauge in left ca1 antecubital area, using aseptic technique. Blood collected. 19:03 CT completed. Patient tolerated procedure well. Patient moved to [place]. Patient moved back wi from CT. 19:06 CT Pelvis wo Cont In Process Unspecified. EDMS Administered Medications: 16:58 Drug: Tylenol 1000 mg Route: PO; ca1 18:59 Follow up: Response: No adverse reaction; Pain is decreased ca1 Outcome: 21:38 ER care complete, transfer ordered by . wa 23:10 Transferred by ground EMS to [facility], Transfer form completed. rr5 23:10 Condition: stable rr5 23:10 Instructed on the need for transfer. 23:40 Patient left the ED. rr5 Signatures: Dispatcher [employer] EDMS Sonia Lopez RN RN aj1 Cirilo Flores Amanda am2 David Poole MD MD wa Roque, Raymond RN RN rr5 Acob, Cahrmaine, RN RN ca1
[2019-02-07 01:33] VITALS: BP 123/62; TEMP 99; O2SAT 100
--- OUTSIDE RECORDS SUMMARY | 2019-02-12 21:46 | XMS REPORT ---
:1960 [facility] Address [address] [place] [address] [address] Care Team Providers Name Role Phone OLAMIDE ORNELAS Unavailable Unavailable Problems This patient has no known problems. Allergies, Adverse Reactions, Alerts This patient has no known allergies or adverse reactions. Medications This patient has no known medications. Encounters Start End Encounter Admission Attending Care Care Encounter Date/Time Date/Time Type Type Clinicians Facility Department ID 2019-02-07 2019-02-06 Inpatient E [facility] [id number] 07:47:00 22:45:00 Results Test Description Test Time Test Comments Text Results Atomic Results Result Comments MISCELLANEOUS LAB ORDER 2019-01-18 18:09:00 Test Item Value Reference Range Comments SCAN RESULT (test [id number]=[id number]) AFB CULTURE + [id number] 11:14:00 Test Item Value Reference Range Comments CULTURE (BEAKER) (test No acid-fast bacilli isolated cgaj=7811) in 42 days AFB SMEAR (BEAKER) (test No acid fast bacilli seen uymj=835) FUNGUS CULTURE + [id number] 11:37:00 Test Item Value Reference Range Comments CULTURE (BEAKER) (test No fungus isolated in 28 days lpck=4192) FUNGUS SMEAR (BEAKER) (test No fungi seen qlnw=5386) FUNGUS CULTURE + [id number] 11:37:00 Test Item Value Reference Range Comments CULTURE (BEAKER) (test No fungus isolated in 28 days lvmr=0104) FUNGUS SMEAR (BEAKER) (test No fungi seen ojyq=9461) AFB CULTURE + [id number] 07:53:00 Test Item Value Reference Range Comments CULTURE (BEAKER) (test No acid-fast bacilli isolated bpix=0187) in 42 days AFB SMEAR (BEAKER) (test No acid fast bacilli seen ntsp=652) AFB CULTURE + [id number] 07:53:00 Test Item Value Reference Range Comments CULTURE (BEAKER) (test No acid-fast bacilli isolated pcco=8825) in 42 days AFB SMEAR (BEAKER) (test No acid fast bacilli seen pbui=220) FUNGUS CULTURE + [id number] 16:08:00 Test Item Value Reference Range Comments CULTURE (BEAKER) (test No fungus isolated in 28 days jkvu=8395) FUNGUS SMEAR (BEAKER) (test No fungi seen pywo=6065) ANAEROBIC [id number] 11:47:00 Test Item Value Reference Range Comments CULTURE (BEAKER) 1+ Propionibacterium (test uine=1667) acnes CULTURE (BEAKER) PROPIONIBACTERIUM ACNES 1+ Propionibacterium (test arcg=0893) acnesSusceptibility performed by:[facility], [address] [place] [id number] Amoxicillin + Clavulanate (test code=21) Clindamycin (test code=10) Meropenem (test code=34) Metronidazole (test code=56) Penicillin G (test code=3) FUNGUS CULTURE + [id number] 15:44:00 Test Item Value Reference Range Comments CULTURE (BEAKER) (test No fungus isolated in 28 days ytck=2828) FUNGUS SMEAR (BEAKER) (test No fungi seen yizs=3674) POCT-GLUCOSE [id number] 06:32:00 Test Item Value Reference Range Comments POC-GLUCOSE METER (BEAKER) 128 mg/dL 70-110 TESTED AT [facility] [address] [place] [address] (test ibgs=5258) [facility] [address] POCT-GLUCOSE [id number] 00:51:00 Test Item Value Reference Range Comments POC-GLUCOSE METER (BEAKER) 119 mg/dL 70-110 TESTED AT [address] (test rysy=4579) [facility] [address] POCT-GLUCOSE [id number] 22:55:00 Test Item Value Reference Range Comments POC-GLUCOSE METER (BEAKER) 136 mg/dL 70-110 TESTED AT [address] (test hllv=7192) [facility] [address] POCT-GLUCOSE [id number] 22:55:00 Test Item Value Reference Range Comments POC-GLUCOSE METER (BEAKER) 128 mg/dL 70-110 TESTED AT [facility] [address] [facility] (test vdzo=2011) [facility] [address] SURGICALLY OBTAINED CULTURE + GRAM [id number] 12:17:00 Test Item Value Reference Range Comments GRAM STAIN RESULT No White blood cells (BEAKER) (test seen xovh=9805) GRAM STAIN RESULT No organisms seen (BEAKER) (test vswa=75222) CULTURE (BEAKER) 1+ Staphylococcus (test ybwz=3917) epidermidis GRAM STAIN RESULT No organisms seen (BEAKER) (test aszn=36947) 1+ Normal respiratory floraBASIC METABOLIC [id number] 06:54:00 Test Item Value Reference Range Comments SODIUM (BEAKER) (test 139 meq/L 136-145 zlwx=435) POTASSIUM (BEAKER) (test 3.6 meq/L 3.5-5.1 kwcj=185) CHLORIDE (BEAKER) (test 105 meq/L 98-107 rrmg=261) CO2 (BEAKER) (test 28 meq/L 22-29 fwsg=427) BLOOD UREA NITROGEN 15 mg/dL 7-21 (BEAKER) (test ihpi=375) CREATININE (BEAKER) (test 0.78 mg/dL 0.57-1.25 btsb=510) GLUCOSE RANDOM (BEAKER) 123 mg/dL 70-105 (test xrpb=448) CALCIUM (BEAKER) (test 9.3 mg/dL 8.4-10.2 tfqq=617) EGFR (BEAKER) (test 102 mL/min/1.73 sq m ESTIMATED GFR IS NOT immn=6742) ACCURATE CREATININE CLEARANCE IN PREDICTING GLOMERULAR FILTRATION RATE. ESTIMATED GFR IS NOT APPLICABLE FOR DIALYSIS PATIENTS. POCT-GLUCOSE [id number] 06:29:00 Test Item Value Reference Range Comments POC-GLUCOSE METER (BEAKER) 130 mg/dL 70-110 TESTED AT [address] (test ddvo=6169) [facility] [address] POCT-GLUCOSE [id number] 06:21:00 Test Item Value Reference Range Comments POC-GLUCOSE METER (BEAKER) 104 mg/dL 70-110 TESTED AT [address] (test tdkc=0477) [facility] [address] CBC W/PLT COUNT & AUTO [id number] 05:39:00 Test Item Value Reference Range Comments WHITE BLOOD CELL COUNT (BEAKER) (test nvqx=627) 6.2 K/ L 3.5-10.5 RED BLOOD CELL COUNT (BEAKER) (test xwjn=860) 3.43 M/ L 4.63-6.08 HEMOGLOBIN (BEAKER) (test wzxa=066) 10.2 GM/DL 13.7-17.5 HEMATOCRIT (BEAKER) (test qpwn=611) 31.5 % 40.1-51.0 MEAN CORPUSCULAR VOLUME (BEAKER) (test cjqk=961) 91.8 fL 79.0-92.2 MEAN CORPUSCULAR HEMOGLOBIN (BEAKER) (test 29.7 pg 25.7-32.2 tyfs=788) MEAN CORPUSCULAR HEMOGLOBIN CONC (BEAKER) (test 32.4 GM/DL 32.3-36.5 hwok=150) RED CELL DISTRIBUTION WIDTH (BEAKER) (test 13.5 % 11.6-14.4 yqwq=283) PLATELET COUNT (BEAKER) (test yaua=960) 325 K/CU MM 150-450 MEAN PLATELET VOLUME (BEAKER) (test omye=178) 9.5 fL 9.4-12.4 NUCLEATED RED BLOOD CELLS (BEAKER) (test 0 /100 WBC 0-0 yces=161) NEUTROPHILS RELATIVE PERCENT (BEAKER) (test 73 % tzka=258) LYMPHOCYTES RELATIVE PERCENT (BEAKER) (test 15 % mxtw=541) MONOCYTES RELATIVE PERCENT (BEAKER) (test 9 % hvee=086) EOSINOPHILS RELATIVE PERCENT (BEAKER) (test 2 % swcd=832) BASOPHILS RELATIVE PERCENT (BEAKER) (test 1 % tkeh=601) NEUTROPHILS ABSOLUTE COUNT (BEAKER) (test 4.53 K/ L 1.78-5.38 vavh=203) LYMPHOCYTES ABSOLUTE COUNT (BEAKER) (test 0.93 K/ L 1.32-3.57 czuu=372) MONOCYTES ABSOLUTE COUNT (BEAKER) (test 0.56 K/ L 0.30-0.82 amyg=453) EOSINOPHILS ABSOLUTE COUNT (BEAKER) (test 0.13 K/ L 0.04-0.54 prvc=324) BASOPHILS ABSOLUTE COUNT (BEAKER) (test 0.03 K/ L 0.01-0.08 rlna=079) IMMATURE GRANULOCYTES-RELATIVE PERCENT (BEAKER) 0 % 0-1 (test gdqn=7494) POCT-GLUCOSE [id number] 18:24:00 Test Item Value Reference Range Comments POC-GLUCOSE METER (BEAKER) 112 mg/dL 70-110 TESTED AT [address] (test psnf=1686) [place] [id number] POCT-GLUCOSE [id number] 13:34:00 Test Item Value Reference Range Comments POC-GLUCOSE METER (BEAKER) 94 mg/dL 70-110 TESTED AT [address] (test evos=0388) [place] [address] POCT-GLUCOSE [id number] 06:56:00 Test Item Value Reference Range Comments POC-GLUCOSE METER (BEAKER) 114 mg/dL 70-110 TESTED AT [address] (test skmq=3729) [facility] [address] BASIC METABOLIC [id number] 06:34:00 Test Item Value Reference Range Comments SODIUM (BEAKER) (test 137 meq/L 136-145 qvuj=514) POTASSIUM (BEAKER) (test 3.5 meq/L 3.5-5.1 wqgz=468) CHLORIDE (BEAKER) (test 101 meq/L 98-107 ajxm=559) CO2 (BEAKER) (test 28 meq/L 22-29 qgfi=700) BLOOD UREA NITROGEN 17 mg/dL 7-21 (BEAKER) (test qwie=967) CREATININE (BEAKER) (test 0.73 mg/dL 0.57-1.25 qtve=870) GLUCOSE RANDOM (BEAKER) 97 mg/dL 70-105 (test lnqf=247) CALCIUM (BEAKER) (test 9.4 mg/dL 8.4-10.2 nigz=895) EGFR (BEAKER) (test 110 mL/min/1.73 sq m ESTIMATED GFR IS NOT vdtg=3414) ACCURATE CREATININE CLEARANCE IN PREDICTING GLOMERULAR FILTRATION RATE. ESTIMATED GFR IS NOT APPLICABLE FOR DIALYSIS PATIENTS. PROTHROMBIN [id number] 06:01:00 Test Item Value Reference Range Comments PROTIME (BEAKER) (test mmpl=254) 13.9 seconds 11.9-14.2 INR (BEAKER) (test rzdm=848) 1.1 <=5.9 Effective 08/31/2018: PT Reference Range ChangeNew: 11.9-14.2 Previous: 11.7- 14.7RECOMMENDED COUMADIN/WARFARIN INR THERAPY RANGESSTANDARD DOSE: 2.0-3.0 Includes: PROPHYLAXIS for venous thrombosis, systemic embolization; TREATMENT for venous thrombosis and/or pulmonary embolus.HIGH RISK: Target INR is2.5-3.5 for patients wiht mechanical heart valves.CBC W/PLT COUNT & AUTO [id number] 05:58:00 Test Item Value Reference Range Comments WHITE BLOOD CELL COUNT (BEAKER) (test vijm=704) 6.4 K/ L 3.5-10.5 RED BLOOD CELL COUNT (BEAKER) (test dgkv=978) 3.47 M/ L 4.63-6.08 HEMOGLOBIN (BEAKER) (test lphy=844) 10.2 GM/DL 13.7-17.5 HEMATOCRIT (BEAKER) (test ynqs=930) 31.7 % 40.1-51.0 MEAN CORPUSCULAR VOLUME (BEAKER) (test ahqg=433) 91.4 fL 79.0-92.2 MEAN CORPUSCULAR HEMOGLOBIN (BEAKER) (test 29.4 pg 25.7-32.2 smri=913) MEAN CORPUSCULAR HEMOGLOBIN CONC (BEAKER) (test 32.2 GM/DL 32.3-36.5 hafv=763) RED CELL DISTRIBUTION WIDTH (BEAKER) (test 13.4 % 11.6-14.4 gzhd=164) PLATELET COUNT (BEAKER) (test pxpd=551) 344 K/CU MM 150-450 MEAN PLATELET VOLUME (BEAKER) (test wmuv=925) 9.8 fL 9.4-12.4 NUCLEATED RED BLOOD CELLS (BEAKER) (test 0 /100 WBC 0-0 ljjy=697) NEUTROPHILS RELATIVE PERCENT (BEAKER) (test 73 % midb=411) LYMPHOCYTES RELATIVE PERCENT (BEAKER) (test 16 % cunu=121) MONOCYTES RELATIVE PERCENT (BEAKER) (test 9 % qwpm=636) EOSINOPHILS RELATIVE PERCENT (BEAKER) (test 2 % mfph=838) BASOPHILS RELATIVE PERCENT (BEAKER) (test 1 % qllx=114) NEUTROPHILS ABSOLUTE COUNT (BEAKER) (test 4.67 K/ L 1.78-5.38 zsed=522) LYMPHOCYTES ABSOLUTE COUNT (BEAKER) (test 1.00 K/ L 1.32-3.57 dcti=287) MONOCYTES ABSOLUTE COUNT (BEAKER) (test 0.56 K/ L 0.30-0.82 zrnt=248) EOSINOPHILS ABSOLUTE COUNT (BEAKER) (test 0.15 K/ L 0.04-0.54 bxco=611) BASOPHILS ABSOLUTE COUNT (BEAKER) (test 0.04 K/ L 0.01-0.08 muww=371) IMMATURE GRANULOCYTES-RELATIVE PERCENT (BEAKER) 0 % 0-1 (test eayn=7611) POCT-GLUCOSE [id number] 05:47:00 Test Item Value Reference Range Comments POC-GLUCOSE METER (BEAKER) 126 mg/dL 70-110 TESTED AT [address] (test lhrm=6149) [place] [address] POCT-GLUCOSE [id number] 18:29:00 Test Item Value Reference Range Comments POC-GLUCOSE METER (BEAKER) 122 mg/dL 70-110 TESTED AT [address] (test rvzg=4843) [place] [address] MR, BRAIN WITH IV [id number] 13:30:00FINAL REPORT MRI Brain with and without contrast Clinical History: subdural empyema interval imaging Technique: MRI of the brain utilizing axial T1 and postgadolinium axial, sagittal, and coronal T1-weighted images. Comparisons: Noncontrast MRI brain 11/08/2018, contrast enhanced MRI brain 11/01/2018 Findings: As earlier today, the patient is status post left-sided craniotomy for evacuation of an underlying subdural empyema. There is thin, irregular extra- axial and leptomeningealenhancement overlying the left frontal sylvian region, without a significant fluid collection. Focalenhancement is again seen in the left paraclinoid region corresponding to the residual left suprasellar cistern signal abnormality. Irregular nodular enhancement corresponding to the recent left corpusstriatum infarction is decreased in conspicuity. A postsurgical left- sided subgaleal fluid collection is again noted with nonspecific irregular enhancement. Bilateral tympanomastoid fluid opacificationis again seen with left -sided enhancement. IMPRESSION: Status post left-sided craniotomy with mild irregular extra-axial and leptomeningeal enhancement, but without significant residual extra-axial fluid collection. Persistent left paraclinoid/suprasellar cistern irregular enhancement. Decreased nodular enhancement of the recent left corpus striatum infarct. Nonspecific left subgaleal fluid collection with irregular enhancement. Bilateral tympanomastoid air cell fluid with nonspecific left-sided enhancement. Signed: Jeni Galvez MDReport Verified Date/Time: 09/2018 13:30:47 Reading Location: [facility] B1 C013V Neuro Reading Room POCT- GLUCOSE [id number] 13:17:00 Test Item Value Reference Range Comments POC-GLUCOSE METER (BEAKER) 99 mg/dL 70-110 TESTED AT [address] (test iocw=0924) [place] [address] POCT-GLUCOSE [id number] 08:00:00 Test Item Value Reference Range Comments POC-GLUCOSE METER (BEAKER) 126 mg/dL 70-110 TESTED AT [address] (test giok=6650) [place] [address] MR, BRAIN, WITHOUT [id number] 07:54:00FINAL REPORT MRI Brain without contrast Clinical History: postop subdural empyema Technique: MRI of the brain utilizing axial T2, FLAIR, GRE, DWI; sagittal and coronal T1-weighted images. Comparisons: CT 11/02/2018, MRI 11/01/2018 and 2018 Findings: A left frontal craniotomy and squamosal temporal craniectomy is again seen without significant underlying extra-axial collection. FLAIR hyperintense vasogenic edema in the left anterior temporal lobe appears slightly decreased. 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 There is some persistent restricted diffusion in the left suprasellarcistern suggesting residual pus. There is no evidence for new acute infarction or intracranial hemorrhage. Generalized parenchymal volume loss is again seen without hydrocephalus or midline shift. Air-fluid levels are again seen in the left frontal, maxillary, and bilateral sphenoid sinuses. There is increased fluid throughout the bilateral tympanomastoid air cells. IMPRESSION: As on the CT of 11/02/2018 and since the MRI of 11/01/2018, status post decompression of the left-sided subdural empyema without significant residual extra-axial collection. However, there is suspected small volume residual pus in the left suprasellar cistern. Decreased vasogenic edema in the left anterior temporal lobe. Decreased edema associated with the previously acute left striatocapsular infarction. No new infarcts. Left paranasal acute sinusitis and bilateral tympanomastoiditis. Signed: Jeni Galvez MDReport Verified Date/Time : 11/08/2018 07:54:12 Reading Location: [address] Neuro Reading Room BASIC METABOLIC [id number] 06:48:00 Test Item Value Reference Range Comments SODIUM (BEAKER) (test 140 meq/L 136-145 svns=546) POTASSIUM (BEAKER) (test 3.7 meq/L 3.5-5.1 gzgc=084) CHLORIDE (BEAKER) (test 104 meq/L 98-107 cwac=129) CO2 (BEAKER) (test 30 meq/L 22-29 myvy=331) BLOOD UREA NITROGEN 16 mg/dL 7-21 (BEAKER) (test udwg=750) CREATININE (BEAKER) (test 0.68 mg/dL 0.57-1.25 tckl=911) GLUCOSE RANDOM (BEAKER) 111 mg/dL 70-105 (test qbln=286) CALCIUM (BEAKER) (test 9.3 mg/dL 8.4-10.2 rosm=622) EGFR (BEAKER) (test 119 mL/min/1.73 sq m ESTIMATED GFR IS NOT gcbz=3065) ACCURATE CREATININE CLEARANCE IN PREDICTING GLOMERULAR FILTRATION RATE. ESTIMATED GFR IS NOT APPLICABLE FOR DIALYSIS PATIENTS. CBC W/PLT COUNT & AUTO [id number] 06:25:00 Test Item Value Reference Range Comments WHITE BLOOD CELL COUNT (BEAKER) (test qjbv=060) 6.7 K/ L 3.5-10.5 RED BLOOD CELL COUNT (BEAKER) (test hwoz=865) 3.43 M/ L 4.63-6.08 HEMOGLOBIN (BEAKER) (test hcuq=147) 10.3 GM/DL 13.7-17.5 HEMATOCRIT (BEAKER) (test ndez=146) 31.7 % 40.1-51.0 MEAN CORPUSCULAR VOLUME (BEAKER) (test yxdi=727) 92.4 fL 79.0-92.2 MEAN CORPUSCULAR HEMOGLOBIN (BEAKER) (test 30.0 pg 25.7-32.2 slix=012) MEAN CORPUSCULAR HEMOGLOBIN CONC (BEAKER) (test 32.5 GM/DL 32.3-36.5 kjqq=140) RED CELL DISTRIBUTION WIDTH (BEAKER) (test 13.3 % 11.6-14.4 peme=576) PLATELET COUNT (BEAKER) (test ogsl=266) 318 K/CU MM 150-450 MEAN PLATELET VOLUME (BEAKER) (test wrpm=849) 9.7 fL 9.4-12.4 NUCLEATED RED BLOOD CELLS (BEAKER) (test 0 /100 WBC 0-0 wtdl=940) NEUTROPHILS RELATIVE PERCENT (BEAKER) (test 75 % mxji=986) LYMPHOCYTES RELATIVE PERCENT (BEAKER) (test 13 % dovv=010) MONOCYTES RELATIVE PERCENT (BEAKER) (test 10 % gfhl=435) EOSINOPHILS RELATIVE PERCENT (BEAKER) (test 2 % anxp=169) BASOPHILS RELATIVE PERCENT (BEAKER) (test 0 % ygrs=212) NEUTROPHILS ABSOLUTE COUNT (BEAKER) (test 5.02 K/ L 1.78-5.38 bqlb=763) LYMPHOCYTES ABSOLUTE COUNT (BEAKER) (test 0.84 K/ L 1.32-3.57 owgg=572) MONOCYTES ABSOLUTE COUNT (BEAKER) (test 0.67 K/ L 0.30-0.82 kzso=619) EOSINOPHILS ABSOLUTE COUNT (BEAKER) (test 0.14 K/ L 0.04-0.54 mman=255) BASOPHILS ABSOLUTE COUNT (BEAKER) (test 0.03 K/ L 0.01-0.08 jrhv=149) IMMATURE GRANULOCYTES-RELATIVE PERCENT (BEAKER) 0 % 0-1 (test cpfi=6133) ANAEROBIC [id number] 04:44:00 Test Item Value Reference Range Comments CULTURE (BEAKER) (test bxxk=1652) No anaerobes isolated POCT-GLUCOSE [id number] 00:31:00 Test Item Value Reference Range Comments POC-GLUCOSE METER (BEAKER) 133 mg/dL 70-110 TESTED AT [facility] [address] [facility] (test cmhg=0858) [facility] [address] POCT-GLUCOSE [id number] 18:50:00 Test Item Value Reference Range Comments POC-GLUCOSE METER (BEAKER) 153 mg/dL 70-110 TESTED AT [facility] [address] (test kddq=9960) [facility] [address] TISSUE [id number] 17:05:00Surgical Pathology Report Case: [id number] Authorizing Provider: Ab Daigle MD Collected: 11/01/20185 Ordering Location: [address] Received: 11/02/2018 0932 Service Pathologist: Ashish Serra MD Specimens: A) - Sphenoid, Left sphenoid sinus B) -Maxillary Sinus, Left maxillary sinus C) - Empyema, LEFT TEMPORAL BRAIN EMPYEMA A. PARANASAL SINUS, LEFT SPHENOID, EXCISION:RESPIRATORY MUCOSA WITH MILD CHRONIC INFLAMMATION AND EDEMAB. PARANASAL SINUS, LEFT MAXILLARY, EXCISION: RESPIRATORY MUCOSA WITH MILD CHRONIC INFLAMMATION AND EDEMAC. BRAIN, LEFT TEMPORAL, DECOMPRESSION:MINUTE FRAGMENT OF FIBRINOUS MATERIAL Signing Pathologist Direct Phone Line: [phone] signed by Ashish Serra MD on 11/07/2018 at 5:05 PMMost of the third specimen did not survive processing and that which did consists of minute fragments of fibrinous material. Special stains for fungi and bacteria are negative. 63815 x 2; 44885; 25516 x 2; 64542Cay and postop diagnosis: left temporal empyema A. Left sphenoid sinus; B. Left maxillary sinus; C. Left temporal brain empyemaA. Received in saline labeled with the patient's name, accession number and "sphenoid" are two irregular pink-red soft tissue fragments measuring 0.5 cm and 0.4 cm which are submitted intoto in A. B. Received in saline labeled with the patient's name, accession number and "maxillary sinus" is a 2 x 2 x 0.4 cm aggregate of multiple, irregular pink-red fibrocartilaginous fragments which are entirely submitted in B1, following decalcification. C. Received in saline labeled with the patient's name, accession number and "empyema" are two irregular pink-white soft tissue fragments measuring 0.4 and 0.3 cm which are submitted in toto in C1. CG/pl Performed on A-CThe interpretation of this case included the use of immunohistochemistry or special stains.Control Slides Examined: In-houseknown positive controls were evaluated along with the test tissue. These control slides run alongside of the patients sample show appropriate staining. Internal positive and negative controls when available are evaluated Immunohistochemistry technical testing was performed at [facility], Pathology Laboratory where it was developed and its performance characteristics were determined. It has not been cleared or approved by the U.S. Food and Drug Administration. The FDA has determined that such clearance or approval is not necessary. The test is used for clinical purposes. It should not be regarded as investigational or for research. This laboratory is certified under the Clinical Laboratory Improvement Amendments of 1988 (CLIA-88) as qualified to perform high complexity clinical laboratory testing.POCT-GLUCOSE [id number] 12:53:00 Test Item Value Reference Range Comments POC-GLUCOSE METER (BEAKER) 128 mg/dL 70-110 TESTED AT [address] (test crvl=3484) [place] [address] BASIC METABOLIC [id number] 06:57:00 Test Item Value Reference Range Comments SODIUM (BEAKER) (test 139 meq/L 136-145 rova=078) POTASSIUM (BEAKER) (test 3.6 meq/L 3.5-5.1 kzmk=286) CHLORIDE (BEAKER) (test 105 meq/L 98-107 rwgl=921) CO2 (BEAKER) (test 29 meq/L 22-29 xbwg=520) BLOOD UREA NITROGEN 18 mg/dL 7-21 (BEAKER) (test fluz=193) CREATININE (BEAKER) (test 0.69 mg/dL 0.57-1.25 eykl=165) GLUCOSE RANDOM (BEAKER) 127 mg/dL 70-105 (test zmpf=176) CALCIUM (BEAKER) (test 8.8 mg/dL 8.4-10.2 avoa=159) EGFR (BEAKER) (test 117 mL/min/1.73 sq m ESTIMATED GFR IS NOT czeh=9112) ACCURATE CREATININE CLEARANCE IN PREDICTING GLOMERULAR FILTRATION RATE. ESTIMATED GFR IS NOT APPLICABLE FOR DIALYSIS PATIENTS. POCT-GLUCOSE [id number] 06:14:00 Test Item Value Reference Range Comments POC-GLUCOSE METER (BEAKER) 138 mg/dL 70-110 TESTED AT [address] (test ongd=8130) [place] [id number] POCT-GLUCOSE [id number] 06:07:00 Test Item Value Reference Range Comments POC-GLUCOSE METER (BEAKER) 128 mg/dL 70-110 TESTED AT [facility] [address] (test bajf=9992) [place] [id number] CBC W/PLT COUNT & AUTO [id number] 05:14:00 Test Item Value Reference Range Comments WHITE BLOOD CELL COUNT (BEAKER) (test nruc=847) 5.8 K/ L 3.5-10.5 RED BLOOD CELL COUNT (BEAKER) (test cvba=683) 3.31 M/ L 4.63-6.08 HEMOGLOBIN (BEAKER) (test vgdc=411) 9.9 GM/DL 13.7-17.5 HEMATOCRIT (BEAKER) (test vobs=123) 30.7 % 40.1-51.0 MEAN CORPUSCULAR VOLUME (BEAKER) (test utbz=597) 92.7 fL 79.0-92.2 MEAN CORPUSCULAR HEMOGLOBIN (BEAKER) (test 29.9 pg 25.7-32.2 sbnb=737) MEAN CORPUSCULAR HEMOGLOBIN CONC (BEAKER) (test 32.2 GM/DL 32.3-36.5 lyzf=357) RED CELL DISTRIBUTION WIDTH (BEAKER) (test 13.6 % 11.6-14.4 jdkd=335) PLATELET COUNT (BEAKER) (test ijjb=999) 387 K/CU MM 150-450 MEAN PLATELET VOLUME (BEAKER) (test wqoq=099) 9.8 fL 9.4-12.4 NUCLEATED RED BLOOD CELLS (BEAKER) (test 0 /100 WBC 0-0 anyg=701) NEUTROPHILS RELATIVE PERCENT (BEAKER) (test 70 % yplw=453) LYMPHOCYTES RELATIVE PERCENT (BEAKER) (test 17 % agcq=660) MONOCYTES RELATIVE PERCENT (BEAKER) (test 10 % qdjt=724) EOSINOPHILS RELATIVE PERCENT (BEAKER) (test 2 % stuk=348) BASOPHILS RELATIVE PERCENT (BEAKER) (test 1 % gsfj=264) NEUTROPHILS ABSOLUTE COUNT (BEAKER) (test 4.04 K/ L 1.78-5.38 mhbv=860) LYMPHOCYTES ABSOLUTE COUNT (BEAKER) (test 0.97 K/ L 1.32-3.57 hngd=166) MONOCYTES ABSOLUTE COUNT (BEAKER) (test 0.58 K/ L 0.30-0.82 qmov=320) EOSINOPHILS ABSOLUTE COUNT (BEAKER) (test 0.11 K/ L 0.04-0.54 edkd=921) BASOPHILS ABSOLUTE COUNT (BEAKER) (test 0.03 K/ L 0.01-0.08 acok=918) IMMATURE GRANULOCYTES-RELATIVE PERCENT (BEAKER) 0 % 0-1 (test gyzz=1133) POCT-GLUCOSE [id number] 12:15:00 Test Item Value Reference Range Comments POC-GLUCOSE METER (BEAKER) 124 mg/dL 70-110 TESTED AT [address] (test zfpf=6533) [place] [id number] POCT-GLUCOSE [id number] 06:31:00 Test Item Value Reference Range Comments POC-GLUCOSE METER (BEAKER) 134 mg/dL 70-110 TESTED AT [address] (test lbom=3651) [place] [id number] BASIC METABOLIC [id number] 06:22:00 Test Item Value Reference Range Comments SODIUM (BEAKER) (test 140 meq/L 136-145 qqjs=995) POTASSIUM (BEAKER) (test 3.5 meq/L 3.5-5.1 eutu=710) CHLORIDE (BEAKER) (test 107 meq/L 98-107 gebb=728) CO2 (BEAKER) (test 29 meq/L 22-29 stcd=390) BLOOD UREA NITROGEN 16 mg/dL 7-21 (BEAKER) (test tbyy=301) CREATININE (BEAKER) (test 0.66 mg/dL 0.57-1.25 liwf=815) GLUCOSE RANDOM (BEAKER) 131 mg/dL 70-105 (test sxfm=820) CALCIUM (BEAKER) (test 9.0 mg/dL 8.4-10.2 fwka=328) EGFR (BEAKER) (test 123 mL/min/1.73 sq m ESTIMATED GFR IS NOT czyw=9101) ACCURATE CREATININE CLEARANCE IN PREDICTING GLOMERULAR FILTRATION RATE. ESTIMATED GFR IS NOT APPLICABLE FOR DIALYSIS PATIENTS. CBC W/PLT COUNT & AUTO [id number] 05:38:00 Test Item Value Reference Range Comments WHITE BLOOD CELL COUNT (BEAKER) (test saay=048) 6.8 K/ L 3.5-10.5 RED BLOOD CELL COUNT (BEAKER) (test ajfu=601) 3.39 M/ L 4.63-6.08 HEMOGLOBIN (BEAKER) (test diwi=080) 10.0 GM/DL 13.7-17.5 HEMATOCRIT (BEAKER) (test slri=134) 31.2 % 40.1-51.0 MEAN CORPUSCULAR VOLUME (BEAKER) (test jlky=060) 92.0 fL 79.0-92.2 MEAN CORPUSCULAR HEMOGLOBIN (BEAKER) (test 29.5 pg 25.7-32.2 hlyc=268) MEAN CORPUSCULAR HEMOGLOBIN CONC (BEAKER) (test 32.1 GM/DL 32.3-36.5 tewh=473) RED CELL DISTRIBUTION WIDTH (BEAKER) (test 13.7 % 11.6-14.4 axpa=113) PLATELET COUNT (BEAKER) (test eoys=929) 372 K/CU MM 150-450 MEAN PLATELET VOLUME (BEAKER) (test gghr=960) 9.6 fL 9.4-12.4 NUCLEATED RED BLOOD CELLS (BEAKER) (test 0 /100 WBC 0-0 oaoi=984) NEUTROPHILS RELATIVE PERCENT (BEAKER) (test 78 % porc=431) LYMPHOCYTES RELATIVE PERCENT (BEAKER) (test 11 % qfkv=882) MONOCYTES RELATIVE PERCENT (BEAKER) (test 8 % zelv=453) EOSINOPHILS RELATIVE PERCENT (BEAKER) (test 2 % jbms=627) BASOPHILS RELATIVE PERCENT (BEAKER) (test 0 % hfdj=038) NEUTROPHILS ABSOLUTE COUNT (BEAKER) (test 5.31 K/ L 1.78-5.38 iafc=861) LYMPHOCYTES ABSOLUTE COUNT (BEAKER) (test 0.76 K/ L 1.32-3.57 ngng=905) MONOCYTES ABSOLUTE COUNT (BEAKER) (test 0.55 K/ L 0.30-0.82 zfol=471) EOSINOPHILS ABSOLUTE COUNT (BEAKER) (test 0.13 K/ L 0.04-0.54 lsfi=577) BASOPHILS ABSOLUTE COUNT (BEAKER) (test 0.02 K/ L 0.01-0.08 eilj=615) IMMATURE GRANULOCYTES-RELATIVE PERCENT (BEAKER) 0 % 0-1 (test wont=3984) POCT-GLUCOSE [id number] 00:12:00 Test Item Value Reference Range Comments POC-GLUCOSE METER (BEAKER) 134 mg/dL 70-110 TESTED AT [address] (test vchc=2456) [place] [id number] POCT-GLUCOSE [id number] 18:27:00 Test Item Value Reference Range Comments POC-GLUCOSE METER (BEAKER) 131 mg/dL 70-110 TESTED AT [address] (test fyjf=9895) [place] [address] SURGICALLY OBTAINED CULTURE + GRAM [id number] 16:18:00 Test Item Value Reference Range Comments CULTURE (BEAKER) (test sqpe=4943) No growth GRAM STAIN RESULT (BEAKER) (test No White blood cells seen nhit=9028) GRAM STAIN RESULT (BEAKER) (test No organisms seen iubk=73007) POCT-GLUCOSE [id number] 11:58:00 Test Item Value Reference Range Comments POC-GLUCOSE METER (BEAKER) 142 mg/dL 70-110 TESTED AT [address] (test pgho=1587) [place] [address] CBC W/PLT COUNT & AUTO [id number] 08:38:00 Test Item Value Reference Range Comments WHITE BLOOD CELL COUNT (BEAKER) (test xzkf=413) 9.0 K/ L 3.5-10.5 RED BLOOD CELL COUNT (BEAKER) (test qrik=914) 3.48 M/ L 4.63-6.08 HEMOGLOBIN (BEAKER) (test xnkt=274) 10.4 GM/DL 13.7-17.5 HEMATOCRIT (BEAKER) (test blcc=625) 32.2 % 40.1-51.0 MEAN CORPUSCULAR VOLUME (BEAKER) (test aihd=807) 92.5 fL 79.0-92.2 MEAN CORPUSCULAR HEMOGLOBIN (BEAKER) (test 29.9 pg 25.7-32.2 wvki=031) MEAN CORPUSCULAR HEMOGLOBIN CONC (BEAKER) (test 32.3 GM/DL 32.3-36.5 umou=361) RED CELL DISTRIBUTION WIDTH (BEAKER) (test 13.5 % 11.6-14.4 bcig=435) PLATELET COUNT (BEAKER) (test qxtn=769) 390 K/CU MM 150-450 MEAN PLATELET VOLUME (BEAKER) (test pxfw=612) 9.5 fL 9.4-12.4 NUCLEATED RED BLOOD CELLS (BEAKER) (test 0 /100 WBC 0-0 krwy=313) NEUTROPHILS RELATIVE PERCENT (BEAKER) (test 84 % tofb=342) LYMPHOCYTES RELATIVE PERCENT (BEAKER) (test 6 % upsi=338) MONOCYTES RELATIVE PERCENT (BEAKER) (test 9 % zbzt=251) EOSINOPHILS RELATIVE PERCENT (BEAKER) (test 1 % islm=440) BASOPHILS RELATIVE PERCENT (BEAKER) (test 0 % xlcm=999) NEUTROPHILS ABSOLUTE COUNT (BEAKER) (test 7.54 K/ L 1.78-5.38 ohei=483) LYMPHOCYTES ABSOLUTE COUNT (BEAKER) (test 0.53 K/ L 1.32-3.57 rgqg=923) MONOCYTES ABSOLUTE COUNT (BEAKER) (test 0.77 K/ L 0.30-0.82 mxva=992) EOSINOPHILS ABSOLUTE COUNT (BEAKER) (test 0.08 K/ L 0.04-0.54 gtrq=199) BASOPHILS ABSOLUTE COUNT (BEAKER) (test 0.03 K/ L 0.01-0.08 ycij=507) IMMATURE GRANULOCYTES-RELATIVE PERCENT (BEAKER) 1 % 0-1 (test khfk=0654) BASIC METABOLIC [id number] 07:35:00 Test Item Value Reference Range Comments SODIUM (BEAKER) (test 139 meq/L 136-145 gkpv=976) POTASSIUM (BEAKER) (test 3.6 meq/L 3.5-5.1 bedq=443) CHLORIDE (BEAKER) (test 107 meq/L 98-107 oola=942) CO2 (BEAKER) (test 27 meq/L 22-29 fxwj=887) BLOOD UREA NITROGEN 14 mg/dL 7-21 (BEAKER) (test cpwg=661) CREATININE (BEAKER) (test 0.62 mg/dL 0.57-1.25 vprv=014) GLUCOSE RANDOM (BEAKER) 132 mg/dL 70-105 (test mahy=107) CALCIUM (BEAKER) (test 9.0 mg/dL 8.4-10.2 lkit=554) EGFR (BEAKER) (test 132 mL/min/1.73 sq m ESTIMATED GFR IS NOT cxqo=3461) ACCURATE CREATININE CLEARANCE IN PREDICTING GLOMERULAR FILTRATION RATE. ESTIMATED GFR IS NOT APPLICABLE FOR DIALYSIS PATIENTS. POCT-GLUCOSE [id number] 06:57:00 Test Item Value Reference Range Comments POC-GLUCOSE METER (BEAKER) 146 mg/dL 70-110 TESTED AT [address] (test bxos=4154) [facility] [address] POCT-GLUCOSE [id number] 00:55:00 Test Item Value Reference Range Comments POC-GLUCOSE METER (BEAKER) 136 mg/dL 70-110 TESTED AT [address] (test nkyh=5811) [place] [address] POCT-GLUCOSE [id number] 18:20:00 Test Item Value Reference Range Comments POC-GLUCOSE METER (BEAKER) 122 mg/dL 70-110 TESTED AT [address] (test jevs=7499) [place] [address] [id number] 15:45:00 Test Item Value Reference Range Comments POTASSIUM (BEAKER) (test lfba=814) 3.7 meq/L 3.5-5.1 Check Serum Potassium level 2 hours after oral potassium replacement completed or 30 min after intravenous potassium replacement.POCT-GLUCOSE [id number] 12:41:00 Test Item Value Reference Range Comments POC-GLUCOSE METER (BEAKER) 111 mg/dL 70-110 TESTED AT [address] (test jlav=2290) [place] [address] [id number] 10:25:00 Test Item Value Reference Range Comments POTASSIUM (BEAKER) (test 3.8 meq/L 3.5-5.1 Specimen slightly hemolyzed yprb=420) Check Serum Potassium level 2 hours after oral potassium replacement completed or 30 min after intravenous potassium replacement.RAD, CHEST, 1 VIEW, NON [id number] 08:15:00Post-intubationReason for exam:->ET tube placementShould this be performed at the bedside?->YesFINAL REPORT RAD, CHEST, 1 VIEW, NON DEPT INDICATION: ET tube placement COMPARISON: Prior day's exam FINDINGS: Portable frontal view of the chest. IMPRESSION: Support Lines: Endotracheal tube has been retracted and projects above the level of the thoracic inlet. Remaining support hardware is stable. Lungs and pleura: Lungs are clear. Costophrenic sulci are sharp. No pneumothorax.Heart and mediastinum: Stable contours.Additional findings: None. Signed: JR López Robert MDR[facility] Verified Date/Time: 11/04/2018 08:15: 24 Reading Location: [facility] Reading Room [id number] 06: 12:00 Test Item Value Reference Range Comments POTASSIUM (BEAKER) (test awnt=832) 3.7 meq/L 3.5-5.1 Check Serum Potassium level 2 hours after oral potassium replacement completed or 30 min after intravenous potassium replacement.POCT-GLUCOSE [id number] 05:45:00 Test Item Value Reference Range Comments POC-GLUCOSE METER (BEAKER) 100 mg/dL 70-110 TESTED AT [facility] [address] [facility] (test ynax=2784) [facility] [address] BASIC METABOLIC [id number] 03:56:00 Test Item Value Reference Range Comments SODIUM (BEAKER) (test 140 meq/L 136-145 qoom=916) POTASSIUM (BEAKER) (test 3.5 meq/L 3.5-5.1 ppwq=879) CHLORIDE (BEAKER) (test 109 meq/L 98-107 uwqv=450) CO2 (BEAKER) (test 24 meq/L 22-29 elro=227) BLOOD UREA NITROGEN 22 mg/dL 7-21 (BEAKER) (test lony=961) CREATININE (BEAKER) (test 0.71 mg/dL 0.57-1.25 gjgp=274) GLUCOSE RANDOM (BEAKER) 155 mg/dL 70-105 (test ydcd=709) CALCIUM (BEAKER) (test 8.6 mg/dL 8.4-10.2 lnbm=547) EGFR (BEAKER) (test 113 mL/min/1.73 sq m ESTIMATED GFR IS NOT ujro=1742) ACCURATE CREATININE CLEARANCE IN PREDICTING GLOMERULAR FILTRATION RATE. ESTIMATED GFR IS NOT APPLICABLE FOR DIALYSIS PATIENTS. CBC W/PLT COUNT & AUTO [id number] 03:54:00 Test Item Value Reference Range Comments WHITE BLOOD CELL COUNT (BEAKER) (test idxx=350) 9.0 K/ L 3.5-10.5 RED BLOOD CELL COUNT (BEAKER) (test ijyu=592) 2.93 M/ L 4.63-6.08 HEMOGLOBIN (BEAKER) (test wnau=579) 8.9 GM/DL 13.7-17.5 HEMATOCRIT (BEAKER) (test mkpa=945) 27.6 % 40.1-51.0 MEAN CORPUSCULAR VOLUME (BEAKER) (test droc=744) 94.2 fL 79.0-92.2 MEAN CORPUSCULAR HEMOGLOBIN (BEAKER) (test 30.4 pg 25.7-32.2 euml=027) MEAN CORPUSCULAR HEMOGLOBIN CONC (BEAKER) (test 32.2 GM/DL 32.3-36.5 zyqq=438) RED CELL DISTRIBUTION WIDTH (BEAKER) (test 13.8 % 11.6-14.4 nqlm=859) PLATELET COUNT (BEAKER) (test uiho=870) 367 K/CU MM 150-450 MEAN PLATELET VOLUME (BEAKER) (test rkcy=035) 9.5 fL 9.4-12.4 NUCLEATED RED BLOOD CELLS (BEAKER) (test 0 /100 WBC 0-0 gelw=514) NEUTROPHILS RELATIVE PERCENT (BEAKER) (test 84 % ztfw=227) LYMPHOCYTES RELATIVE PERCENT (BEAKER) (test 7 % bdak=379) MONOCYTES RELATIVE PERCENT (BEAKER) (test 8 % ztxu=610) EOSINOPHILS RELATIVE PERCENT (BEAKER) (test 1 % lkfp=422) BASOPHILS RELATIVE PERCENT (BEAKER) (test 0 % uhsa=180) NEUTROPHILS ABSOLUTE COUNT (BEAKER) (test 7.56 K/ L 1.78-5.38 kgbg=835) LYMPHOCYTES ABSOLUTE COUNT (BEAKER) (test 0.58 K/ L 1.32-3.57 gzzr=788) MONOCYTES ABSOLUTE COUNT (BEAKER) (test 0.73 K/ L 0.30-0.82 ctvu=126) EOSINOPHILS ABSOLUTE COUNT (BEAKER) (test 0.08 K/ L 0.04-0.54 sclt=840) BASOPHILS ABSOLUTE COUNT (BEAKER) (test 0.02 K/ L 0.01-0.08 dvkq=427) IMMATURE GRANULOCYTES-RELATIVE PERCENT (BEAKER) 0 % 0-1 (test emjc=7649) BLOOD GAS, [id number] 03:29:00 Test Item Value Reference Range Comments PH ARTERIAL (BEAKER) (test drqg=643) 7.47 7.35-7.45 PCO2 ARTERIAL (BEAKER) (test qunj=090) 35 mmHg 35-45 PO2 ARTERIAL (BEAKER) (test uxvw=100) 236 mmHg 80-90 O2 SATURATION ARTERIAL (BEAKER) (test dcts=142) 99.6 % 96.0-97.0 HCO3 ARTERIAL (BEAKER) (test jchq=219) 25 mmol/L 21-29 BASE EXCESS ARTERIAL (BEAKER) (test aygp=742) 1.4 mmol/L -2.0-3.0 PATIENT TEMPERATURE (BEAKER) (test tefi=9128) 37.0 C FIO2 (BEAKER) (test ivzo=1208) 40.0 % POCT-GLUCOSE [id number] 00:10:00 Test Item Value Reference Range Comments POC-GLUCOSE METER (BEAKER) 127 mg/dL 70-110 TESTED AT [address] (test erbp=1995) [place] [address] VANCOMYCIN LEVEL, [id number] 23:45:00 Test Item Value Reference Range Comments VANCOMYCIN TROUGH (BEAKER) (test rprl=215) 17.3 ug/mL 10.0-20.0 POCT-GLUCOSE [id number] 17:26:00 Test Item Value Reference Range Comments POC-GLUCOSE METER (BEAKER) 103 mg/dL 70-110 TESTED AT [address] (test ogdc=4207) [place] [id number] EEG AWAKE AND [id number] 14:51:00Reason for exam:->Post op concern for seizuresNEUROPHYSIOLOGY SECTION: EEG REPORT𒏄Study: 19-1986Patient: Bala Cutler [id number]: [id number]: R56.9CPT: 11034Hagz: 11/03/18&amp ;#[id number];Total monitoring time: 30 minutes䴦This is a digital EEG recorded with 32 input channels on a [employer] system and then reviewed with bipolar and referential montages using the modified combinatorial system nomenclature.𖔴DESCRIPTION OF RECORD: There is no well defined posterior dominant rhythm or a voltage/frequency gradient. The background is represented by a mixture of moderate voltage 5 - 8 and 2-4 hz activites intermixed with some 8-12 hz frequencies. There are the occasional brief one second lasting epochs of a relative diffuse background attenuation. Spontaneous reactivity is preserved as evident by the improvedbackground continuity and the predominance of the faster frequency spectra. Sleep patterns are not observed. Focal features: a. The background over the left hemisphere is mildly attenuated as compared to the corresponding regions on the right.b. The background over the left hemisphere is also dominated by mostly 2-4 frequencies and there is the relative paucity of faster frequency spectra. Hyperventilation was not performed. Photic stimulation across a broad frequency range did not elicit abnormal waveforms or responses. ᤳECG: regular, sinus rhythmELECTROGRAPHIC/ELECTRO-CLINICAL EVENTS: c. None𖪲IMPRESSION: ABNORMAL EEG IN COMAd. Diffuse background slowing, delta/theta range, reactivee. Focal attenuation and slow ctivity involving the left hemisphere& #[id number];Clinical correlation: The background slowing as seen in this record suggests the presence of a moderate encephalopathy. The focal attenuation and slow activity over the left hemisphere suggests the presence of a lesion broadly involving the left hemisphere. The absence of epileptiform activity does not rule out the possibility of epilepsy. If clinically indicated, consider additional EEG recordings. 盆These findings were verbally communicated to the neurology treatment team at 11:15 AM䠰Kriss Mckoy M.D., Ph.D.Epilepsy Attending POCT-GLUCOSE [id number] 12:11:00 Test Item Value Reference Range Comments POC-GLUCOSE METER (BEAKER) 114 mg/dL 70-110 TESTED AT [facility] [address] [place] [address] (test idxo=3687) [facility] [address] [id number] 08:51:00 Test Item Value Reference Range Comments POTASSIUM (BEAKER) (test rdtz=881) 3.9 meq/L 3.5-5.1 Check Serum Potassium level 2 hours after oral potassium replacement completed or 30 min after intravenous potassium replacement.RAD, CHEST, 1 VIEW, NON [id number] 06:48:00Post-intubationReason for exam:->ET tube placementShould this be performed at the bedside?->YesFINAL REPORT RAD, CHEST, 1 VIEW, NON DEPT INDICATION: ET tube placement COMPARISON: Prior day's exam FINDINGS: Portable frontal view of the chest. IMPRESSION: Support Lines: Stable. Lungs and pleura: Unchanged airspace and pleural opacities. No pneumothorax.Heart and mediastinum: Stable contours. Additional findings: None. Signed: Nicole Cohen Verified Date/ Time: 11/03/2018 06:48:48 POCT-GLUCOSE [id number] 06:26:00 Test Item Value Reference Range Comments POC-GLUCOSE METER (BEAKER) 124 mg/dL 70-110 TESTED AT [facility] [address] [facility] (test oodl=6428) [facility] [address] BASIC METABOLIC [id number] 04:20:00 Test Item Value Reference Range Comments SODIUM (BEAKER) (test 141 meq/L 136-145 klgq=617) POTASSIUM (BEAKER) (test 3.3 meq/L 3.5-5.1 hiau=524) CHLORIDE (BEAKER) (test 109 meq/L 98-107 xgal=691) CO2 (BEAKER) (test 26 meq/L 22-29 ioin=640) BLOOD UREA NITROGEN 24 mg/dL 7-21 (BEAKER) (test osix=269) CREATININE (BEAKER) (test 0.75 mg/dL 0.57-1.25 roat=307) GLUCOSE RANDOM (BEAKER) 138 mg/dL 70-105 (test rjre=976) CALCIUM (BEAKER) (test 8.7 mg/dL 8.4-10.2 opdz=645) EGFR (BEAKER) (test 106 mL/min/1.73 sq m ESTIMATED GFR IS NOT blvy=0405) ACCURATE CREATININE CLEARANCE IN PREDICTING GLOMERULAR FILTRATION RATE. ESTIMATED GFR IS NOT APPLICABLE FOR DIALYSIS PATIENTS. CBC W/PLT COUNT & AUTO [id number] 03:51:00 Test Item Value Reference Range Comments WHITE BLOOD CELL COUNT (BEAKER) (test maeq=516) 9.5 K/ L 3.5-10.5 RED BLOOD CELL COUNT (BEAKER) (test szor=238) 3.05 M/ L 4.63-6.08 HEMOGLOBIN (BEAKER) (test hmye=248) 9.1 GM/DL 13.7-17.5 HEMATOCRIT (BEAKER) (test sflf=101) 28.3 % 40.1-51.0 MEAN CORPUSCULAR VOLUME (BEAKER) (test ydtp=285) 92.8 fL 79.0-92.2 MEAN CORPUSCULAR HEMOGLOBIN (BEAKER) (test 29.8 pg 25.7-32.2 oysj=096) MEAN CORPUSCULAR HEMOGLOBIN CONC (BEAKER) (test 32.2 GM/DL 32.3-36.5 jtgw=331) RED CELL DISTRIBUTION WIDTH (BEAKER) (test 14.1 % 11.6-14.4 vbep=371) PLATELET COUNT (BEAKER) (test vfnk=326) 381 K/CU MM 150-450 MEAN PLATELET VOLUME (BEAKER) (test ddbm=207) 9.7 fL 9.4-12.4 NUCLEATED RED BLOOD CELLS (BEAKER) (test 0 /100 WBC 0-0 kcww=296) NEUTROPHILS RELATIVE PERCENT (BEAKER) (test 82 % moth=937) LYMPHOCYTES RELATIVE PERCENT (BEAKER) (test 8 % qnsf=956) MONOCYTES RELATIVE PERCENT (BEAKER) (test 8 % jykc=363) EOSINOPHILS RELATIVE PERCENT (BEAKER) (test 1 % kvoa=482) BASOPHILS RELATIVE PERCENT (BEAKER) (test 0 % fgbm=578) NEUTROPHILS ABSOLUTE COUNT (BEAKER) (test 7.83 K/ L 1.78-5.38 nzei=276) LYMPHOCYTES ABSOLUTE COUNT (BEAKER) (test 0.77 K/ L 1.32-3.57 ggrb=581) MONOCYTES ABSOLUTE COUNT (BEAKER) (test 0.79 K/ L 0.30-0.82 xgvj=201) EOSINOPHILS ABSOLUTE COUNT (BEAKER) (test 0.08 K/ L 0.04-0.54 sdwh=695) BASOPHILS ABSOLUTE COUNT (BEAKER) (test 0.03 K/ L 0.01-0.08 wazw=914) IMMATURE GRANULOCYTES-RELATIVE PERCENT (BEAKER) 0 % 0-1 (test kfqj=4349) BLOOD GAS, [id number] 03:34:00 Test Item Value Reference Range Comments PH ARTERIAL (BEAKER) (test cjff=021) 7.49 7.35-7.45 PCO2 ARTERIAL (BEAKER) (test gohv=114) 35 mmHg 35-45 PO2 ARTERIAL (BEAKER) (test vhti=192) 177 mmHg 80-90 O2 SATURATION ARTERIAL (BEAKER) (test zzzk=281) 99.3 % 96.0-97.0 HCO3 ARTERIAL (BEAKER) (test mhxy=027) 26 mmol/L 21-29 BASE EXCESS ARTERIAL (BEAKER) (test ifti=107) 2.9 mmol/L -2.0-3.0 PATIENT TEMPERATURE (BEAKER) (test sfjw=8580) 37.0 C FIO2 (BEAKER) (test jnpp=1867) 40.0 % POCT-GLUCOSE [id number] 00:08:00 Test Item Value Reference Range Comments POC-GLUCOSE METER (BEAKER) 131 mg/dL 70-110 TESTED AT [address] (test vfkp=3535) [facility] [address] POCT-GLUCOSE [id number] 17:42:00 Test Item Value Reference Range Comments POC-GLUCOSE METER (BEAKER) 116 mg/dL 70-110 TESTED AT [address] (test kldn=5766) [facility] [address] POCT-GLUCOSE [id number] 11:50:00 Test Item Value Reference Range Comments POC-GLUCOSE METER (BEAKER) 108 mg/dL 70-110 TESTED AT [address] (test snrl=7828) [facility] [address] VANCOMYCIN LEVEL, [id number] 09:04:00 Test Item Value Reference Range Comments VANCOMYCIN TROUGH (BEAKER) (test cjml=963) 14.2 ug/mL 10.0-20.0 [id number] 07:36:00 Test Item Value Reference Range Comments MAGNESIUM (BEAKER) (test yzci=208) 2.3 mg/dL 1.6-2.6 CBC W/PLT COUNT & AUTO [id number] 07:04:00 Test Item Value Reference Range Comments WHITE BLOOD CELL COUNT (BEAKER) (test hroh=881) 12.1 K/ L 3.5-10.5 RED BLOOD CELL COUNT (BEAKER) (test wfbr=059) 3.16 M/ L 4.63-6.08 HEMOGLOBIN (BEAKER) (test alnq=832) 9.6 GM/DL 13.7-17.5 HEMATOCRIT (BEAKER) (test agln=316) 28.9 % 40.1-51.0 MEAN CORPUSCULAR VOLUME (BEAKER) (test kiku=645) 91.5 fL 79.0-92.2 MEAN CORPUSCULAR HEMOGLOBIN (BEAKER) (test 30.4 pg 25.7-32.2 cvhv=938) MEAN CORPUSCULAR HEMOGLOBIN CONC (BEAKER) (test 33.2 GM/DL 32.3-36.5 mjvm=745) RED CELL DISTRIBUTION WIDTH (BEAKER) (test 13.6 % 11.6-14.4 rltf=107) PLATELET COUNT (BEAKER) (test cltr=000) 415 K/CU MM 150-450 MEAN PLATELET VOLUME (BEAKER) (test otka=973) 9.3 fL 9.4-12.4 NUCLEATED RED BLOOD CELLS (BEAKER) (test 0 /100 WBC 0-0 skoq=152) (CELLAVISION MANUAL DIFF)2018-11-02 07:04:00 Test Item Value Reference Range Comments NEUTROPHILS - REL (CELLAVISION)(BEAKER) (test 98 % diqz=7370) LYMPHOCYTES - REL (CELLAVISION)(BEAKER) (test 1 % vhpo=8819) BASOPHILS - REL (CELLAVISION)(BEAKER) (test 1 % ynyj=6848) NEUTROPHILS - ABS (CELLAVISION)(BEAKER) (test 11.86 K/ul 1.78-5.38 nfep=3310) LYMPHOCYTES - ABS (CELLAVISION)(BEAKER) (test 0.12 K/ul 1.32-3.57 ksfn=6666) BASOPHILS - ABS (CELLAVISION)(BEAKER) (test 0.12 K/uL 0.01-0.08 uaxd=4374) TOTAL COUNTED (BEAKER) (test hrvc=4646) 100 WBC MORPHOLOGY (BEAKER) (test tonp=573) Normal LARGE PLT(BEAKER) (test psnc=8303) Present POLYCHROMATOPHILLIC RBCS(BEAKER) (test cgsy=256) 1+ few HYPOCHROMIA (BEAKER) (test nlme=804) 1+ few BASOPHILIC STIPPLING (BEAKER) (test hiyo=342) Present ARTIFACT (CELLAVISION)(BEAKER) (test czdn=1837) Present PLATELET CONCENTRATION (CELLAVISION)(BEAKER) Adequate (test knbw=2370) Received comment: User comments: Slide comments:POCT-GLUCOSE [id number] 05: 40:00 Test Item Value Reference Range Comments POC-GLUCOSE METER (BEAKER) 148 mg/dL 70-110 TESTED AT [facility] [address] (test ugvn=4598) [facility] [address] CT, SINUS, [id number] 05:03:00Addendum BeginsREPORT STATUS:A Additional findings: There is left temporal lobe edema subjacent to the craniotomy. Signed: Temo López MDReport Verified Date/Time: 2018 05:03:[address], SINUS, FUSION , CT, BRAIN, WITHOUT CONTRAST CLINICAL HISTORY:Sinusitis, recurring, possible surgerywill be taking to surgery 7 AM TECHNIQUE: Noncontrast axial imaging was obtained from the vertex to the skull base. Axial images were reconstructed using a bone algorithm. Additionally, axial images of the facial bones were obtained with sagittal and coronal reformats. DOSE REDUCTION: Dose modulation, iterative reconstruction, and/or weight-based adjustment of the mA/kV was utilized to reduce the radiation dose to as low as reasonably achievable. COMPARISON: 10/18/2018 FINDINGS: HEAD CT:Pneumocephalus, left craniotomy defect. Minimal extra-axial hemorrhage deep to the craniotomy site. 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 No new infarct or hemorrhagic transformation. Remote cerebellar lacunar infarcts and chronic microvascular ischemic changes again noted. No hydrocephalus or midline shift. The orbits and globes are stable. 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 Left ostiomeatal unit is occluded by mucosal thickening with erosion or resection of the uncinate process. Right ostiomeatal unit is patent. Marked thinning and dehiscence along the lateral margins of the sphenoid sinus are stable in appearance. Bilateral fovea ethmoidalis are intact. Left lateral lamella is dehiscent or markedly thinned. There is thinning of the ethmoid roof anteriorly. No adjacent pneumocephalus.Bilateral mastoid effusions have increased with patent middle ears. Opacified right external auditory canal. Absence of IV contrast precludes evaluation of the cavernous sinus. IMPRESSION: Expected evolution of left striatocapsular infarct without hemorrhagic transformation. Postoperative cranial changes without detrimental change. Stable extensive paranasal sinus disease with evidence of bony dehiscence or marked thinning involving the sphenoid and ethmoid sinuses. Bilateral mastoid effusions have progressed. Remainderof findings are not significantly changed. Signed: Temo López MDReport Verified Date/Time: 11/02/2018 02:02:55 CT, BRAIN, WITHOUT [id number] 05:03:00Addendum BeginsREPORT STATUS:A Additional findings: There is left temporal lobe edema subjacent to the craniotomy. Signed: Temo López MDReport Verified Date/Time : 11/02/2018 05:03:[address], SINUS, FUSION, CT, BRAIN, WITHOUT CONTRAST CLINICAL HISTORY:Sinusitis, recurring , possible surgerywill be taking to surgery 7/31 AM TECHNIQUE: Noncontrast axial imaging was obtained from the vertex to the skull base. Axial images were reconstructed using a bone algorithm. Additionally, axial images of the facial bones were obtained with sagittal and coronal reformats. DOSE REDUCTION: Dose modulation, iterative reconstruction, and/or weight-based adjustment of the mA/ kV was utilized to reduce the radiation dose to as low as reasonably achievable. COMPARISON: 10/18/2018 FINDINGS: HEAD CT:Pneumocephalus, left craniotomy defect. Minimal extra-axial hemorrhage deep to the craniotomy site. 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 No new infarct or hemorrhagic transformation. Remote cerebellar lacunar infarcts and chronic microvascular ischemic changes again noted. No hydrocephalus or midline shift. The orbits and globes are stable. 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 Left ostiomeatal unit is occluded by mucosal thickening with erosion or resection of the uncinate process. Right ostiomeatal unit is patent. Marked thinning and dehiscence along the lateral margins of the sphenoid sinus are stable in appearance. Bilateral fovea ethmoidalis are intact. Left lateral lamella is dehiscent or markedly thinned. There is thinning of the ethmoid roof anteriorly. No adjacent pneumocephalus.Bilateral mastoid effusions have increased with patent middle ears. Opacified right external auditory canal. Absence of IV contrast precludes evaluation of the cavernous sinus. IMPRESSION: Expected evolution of left striatocapsular infarct without hemorrhagic transformation. Postoperative cranial changes without detrimental change. Stable extensive paranasal sinus disease with evidence of bony dehiscence or marked thinning involving the sphenoid and ethmoid sinuses. Bilateral mastoid effusions have progressed. Remainderof findings are not significantly changed. Signed: Temo López MDReport Verified Date/Time: 11/02/2018 02:02:55 RAD, CHEST, 1 VIEW, NON [id number] 05:00:00Post-intubationReason for exam:-> ET tube placementShould this be performed at the bedside?->YesFINAL REPORT RAD, CHEST, 1 VIEW, NON DEPT INDICATION: ET tube placement COMPARISON: October 27, 2018 FINDINGS: Portable frontal view of the chest. IMPRESSION: Support Lines: Endotracheal tube terminates appropriately 7 cm above the aaron. Lungs and pleura: Improved bilateral airspace disease with minimal residual subsegmental atelectasis. No overt pulmonary edema. No significant pleural effusion. No pneumothorax.Heart and mediastinum: Stable cardiomediastinal contour. Additional findings: None. Signed: Temo López MDReport Verified Date/Time: 11/02/2018 05:00:18 [id number] 01:52:00 Test Item Value Reference Range Comments PHOSPHORUS (BEAKER) (test hals=330) 4.3 mg/dL 2.3-4.7 [id number] 01:52:00 Test Item Value Reference Range Comments MAGNESIUM (BEAKER) (test qbli=927) 2.0 mg/dL 1.6-2.6 BASIC METABOLIC [id number] 01:52:00 Test Item Value Reference Range Comments SODIUM (BEAKER) (test 135 meq/L 136-145 knyp=698) POTASSIUM (BEAKER) (test 4.0 meq/L 3.5-5.1 vaio=196) CHLORIDE (BEAKER) (test 102 meq/L 98-107 hslm=330) CO2 (BEAKER) (test 24 meq/L 22-29 ulnx=941) BLOOD UREA NITROGEN 24 mg/dL 7-21 (BEAKER) (test tdnj=083) CREATININE (BEAKER) (test 0.95 mg/dL 0.57-1.25 sgsy=922) GLUCOSE RANDOM (BEAKER) 141 mg/dL 70-105 (test uxmc=147) CALCIUM (BEAKER) (test 8.7 mg/dL 8.4-10.2 sfax=982) EGFR (BEAKER) (test 81 mL/min/1.73 sq m ESTIMATED GFR IS NOT smzk=3580) ACCURATE CREATININE CLEARANCE IN PREDICTING GLOMERULAR FILTRATION RATE. ESTIMATED GFR IS NOT APPLICABLE FOR DIALYSIS PATIENTS. BLOOD GAS, [id number] 01:39:00 Test Item Value Reference Range Comments PH ARTERIAL (BEAKER) (test jgcg=910) 7.45 7.35-7.45 PCO2 ARTERIAL (BEAKER) (test iens=924) 38 mmHg 35-45 PO2 ARTERIAL (BEAKER) (test pzet=912) 169 mmHg 80-90 O2 SATURATION ARTERIAL (BEAKER) (test dyps=540) 99.2 % 96.0-97.0 HCO3 ARTERIAL (BEAKER) (test uayd=765) 26 mmol/L 21-29 BASE EXCESS ARTERIAL (BEAKER) (test vtin=971) 1.7 mmol/L -2.0-3.0 PATIENT TEMPERATURE (BEAKER) (test behu=9430) 37.0 C FIO2 (BEAKER) (test pmbd=1352) 50.0 % POCT-GLUCOSE [id number] 01:32:00 Test Item Value Reference Range Comments POC-GLUCOSE METER (BEAKER) 142 mg/dL 70-110 TESTED AT [facility] [address] [facility] (test cstb=7512) [facility] [address] [id number] 20:26:00 Test Item Value Reference Range Comments PROTIME (BEAKER) (test zclb=430) 14.1 seconds 11.9-14.2 INR (BEAKER) (test onln=274) 1.2 <=5.9 PARTIAL THROMBOPLASTIN TIME (BEAKER) (test 33.9 seconds 22.5-36.0 oisx=055) Effective 08/31/2018: PT Reference Range ChangeNew: 11.9-14.2 Previous: 11.7- 14.7RECOMMENDED COUMADIN/WARFARIN INR THERAPY RANGESSTANDARD DOSE: 2.0-3.0 Includes: PROPHYLAXIS for venous thrombosis, systemic embolization; TREATMENT for venous thrombosis and/or pulmonary embolus.HIGH RISK: Target INR is2.5-3.5 for patients wiht mechanical heart valves.POCT-GLUCOSE [id number] 18:43:00 Test Item Value Reference Range Comments POC-GLUCOSE METER (BEAKER) 139 mg/dL 70-110 TESTED AT [address] (test rldk=5853) [facility] [address] MR, BRAIN, [id number] 14:37:00FINAL REPORT MR, BRAIN , WITH \\T\\ WITHOUT CONTRAST INDICATION: meningitis, follow up TECHNIQUE: Multiplanar, multisequence MR imaging of the brain was obtained before and after uneventful administration of gadolinium contrast. 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 No recent infarct or hemorrhage has developed. However, there has been interval development of peripherally enhancing dural based fluid collections at the floor of the left middle cranial fossa along the lateral edge of the temporal lobe and extending to the anterior portion of the left temporal lobe. Minimal underlying mass effect is present. There is increasing T2 FLAIR signal abnormality in the anterior portion of the left temporal lobe as a result. Dural enhancement in this region is similar to the prior examination. There is stable peripheral enhancement along the margins of Meckel' s cave. 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 There is persistent paranasal sinus disease with mucosal thickening and inspissated contents particularly in the sphenoid chambers. The post thickening is also present asymmetrically greater in the left maxillary change. Marked bilateral mastoid effusions arepresent. Effusions are also present within the pneumatized petrous apices. This is new since the prior examination. IMPRESSION: Since the prior examination there has been development of small peripherally enhancing fluid collections along the floor and lateral aspect of the left middle cranial fossa concerning for empyema formation. Although there is no significant underlying mass effect, reactiveto signal abnormalities in the adjacent brain parenchyma are present. 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 Persistent paranasal sinus disease, although the suspected meningocele identified in the prior examination is not identified in the current study. Signed: JR Rene, Darlyn Gregorio Verified Date/Time: 11/01/2018 14:37:38 Reading Location: [facility] Radiology Reading Room POCT-GLUCOSE [id number] 09:05:00 Test Item Value Reference Range Comments POC-GLUCOSE METER (BEAKER) 141 mg/dL 70-110 TESTED AT [address] (test xebh=3925) [place] [address] POCT-GLUCOSE [id number] 06:36:00 Test Item Value Reference Range Comments POC-GLUCOSE METER (BEAKER) 121 mg/dL 70-110 TESTED AT [address] (test rwhj=2969) [place] [address] BASIC METABOLIC [id number] 05:13:00 Test Item Value Reference Range Comments SODIUM (BEAKER) (test 140 meq/L 136-145 lxmd=169) POTASSIUM (BEAKER) (test 3.8 meq/L 3.5-5.1 Specimen slightly fkit=427) hemolyzed CHLORIDE (BEAKER) (test 105 meq/L 98-107 axfm=706) CO2 (BEAKER) (test 29 meq/L 22-29 otgc=286) BLOOD UREA NITROGEN 22 mg/dL 7-21 (BEAKER) (test cpyb=654) CREATININE (BEAKER) (test 0.73 mg/dL 0.57-1.25 Specimen slightly wwfj=414) hemolyzed GLUCOSE RANDOM (BEAKER) 136 mg/dL 70-105 (test mawr=156) CALCIUM (BEAKER) (test 8.8 mg/dL 8.4-10.2 aqbc=904) EGFR (BEAKER) (test 110 mL/min/1.73 sq m ESTIMATED GFR IS NOT wsif=2852) ACCURATE CREATININE CLEARANCE IN PREDICTING GLOMERULAR FILTRATION RATE. ESTIMATED GFR IS NOT APPLICABLE FOR DIALYSIS PATIENTS. CBC W/PLT COUNT & AUTO [id number] 05:04:00 Test Item Value Reference Range Comments WHITE BLOOD CELL COUNT (BEAKER) (test tsnx=875) 8.7 K/ L 3.5-10.5 RED BLOOD CELL COUNT (BEAKER) (test jojb=366) 3.55 M/ L 4.63-6.08 HEMOGLOBIN (BEAKER) (test tcdq=757) 10.7 GM/DL 13.7-17.5 HEMATOCRIT (BEAKER) (test dixi=267) 32.9 % 40.1-51.0 MEAN CORPUSCULAR VOLUME (BEAKER) (test pmop=056) 92.7 fL 79.0-92.2 MEAN CORPUSCULAR HEMOGLOBIN (BEAKER) (test 30.1 pg 25.7-32.2 amtj=498) MEAN CORPUSCULAR HEMOGLOBIN CONC (BEAKER) (test 32.5 GM/DL 32.3-36.5 pilx=670) RED CELL DISTRIBUTION WIDTH (BEAKER) (test 13.5 % 11.6-14.4 xmbh=566) PLATELET COUNT (BEAKER) (test whil=151) 489 K/CU MM 150-450 MEAN PLATELET VOLUME (BEAKER) (test golh=807) 10.0 fL 9.4-12.4 NUCLEATED RED BLOOD CELLS (BEAKER) (test 0 /100 WBC 0-0 wjvi=285) NEUTROPHILS RELATIVE PERCENT (BEAKER) (test 81 % ovpd=925) LYMPHOCYTES RELATIVE PERCENT (BEAKER) (test 9 % vwcr=220) MONOCYTES RELATIVE PERCENT (BEAKER) (test 8 % flrh=720) EOSINOPHILS RELATIVE PERCENT (BEAKER) (test 2 % qniy=346) BASOPHILS RELATIVE PERCENT (BEAKER) (test 0 % wbav=831) NEUTROPHILS ABSOLUTE COUNT (BEAKER) (test 7.01 K/ L 1.78-5.38 gryz=432) LYMPHOCYTES ABSOLUTE COUNT (BEAKER) (test 0.76 K/ L 1.32-3.57 mnsx=068) MONOCYTES ABSOLUTE COUNT (BEAKER) (test 0.66 K/ L 0.30-0.82 hfjo=522) EOSINOPHILS ABSOLUTE COUNT (BEAKER) (test 0.19 K/ L 0.04-0.54 kigm=912) BASOPHILS ABSOLUTE COUNT (BEAKER) (test 0.03 K/ L 0.01-0.08 skgz=263) IMMATURE GRANULOCYTES-RELATIVE PERCENT (BEAKER) 0 % 0-1 (test ethm=3054) POCT-GLUCOSE [id number] 00:04:00 Test Item Value Reference Range Comments POC-GLUCOSE METER (BEAKER) 119 mg/dL 70-110 TESTED AT [address] (test fjve=1235) [facility] [address] POCT-GLUCOSE [id number] 17:12:00 Test Item Value Reference Range Comments POC-GLUCOSE METER (BEAKER) 136 mg/dL 70-110 TESTED AT [address] (test piou=2789) [facility] [address] CBC W/PLT COUNT & AUTO [id number] 06:31:00 Test Item Value Reference Range Comments WHITE BLOOD CELL COUNT (BEAKER) (test tlgt=501) 10.0 K/ L 3.5-10.5 RED BLOOD CELL COUNT (BEAKER) (test yqyf=150) 3.44 M/ L 4.63-6.08 HEMOGLOBIN (BEAKER) (test pfjn=769) 10.3 GM/DL 13.7-17.5 HEMATOCRIT (BEAKER) (test fsio=192) 31.6 % 40.1-51.0 MEAN CORPUSCULAR VOLUME (BEAKER) (test emij=895) 91.9 fL 79.0-92.2 MEAN CORPUSCULAR HEMOGLOBIN (BEAKER) (test 29.9 pg 25.7-32.2 zxfd=678) MEAN CORPUSCULAR HEMOGLOBIN CONC (BEAKER) (test 32.6 GM/DL 32.3-36.5 qwsw=929) RED CELL DISTRIBUTION WIDTH (BEAKER) (test 13.5 % 11.6-14.4 sgge=532) PLATELET COUNT (BEAKER) (test yukw=139) 487 K/CU MM 150-450 MEAN PLATELET VOLUME (BEAKER) (test qswp=609) 9.9 fL 9.4-12.4 NUCLEATED RED BLOOD CELLS (BEAKER) (test 0 /100 WBC 0-0 vevq=163) NEUTROPHILS RELATIVE PERCENT (BEAKER) (test 82 % umqd=128) LYMPHOCYTES RELATIVE PERCENT (BEAKER) (test 7 % efpe=953) MONOCYTES RELATIVE PERCENT (BEAKER) (test 8 % arit=929) EOSINOPHILS RELATIVE PERCENT (BEAKER) (test 2 % eqay=478) BASOPHILS RELATIVE PERCENT (BEAKER) (test 0 % xhsa=701) NEUTROPHILS ABSOLUTE COUNT (BEAKER) (test 8.20 K/ L 1.78-5.38 sbzi=833) LYMPHOCYTES ABSOLUTE COUNT (BEAKER) (test 0.74 K/ L 1.32-3.57 slad=885) MONOCYTES ABSOLUTE COUNT (BEAKER) (test 0.76 K/ L 0.30-0.82 kcsx=399) EOSINOPHILS ABSOLUTE COUNT (BEAKER) (test 0.22 K/ L 0.04-0.54 iqxt=242) BASOPHILS ABSOLUTE COUNT (BEAKER) (test 0.02 K/ L 0.01-0.08 mupe=862) IMMATURE GRANULOCYTES-RELATIVE PERCENT (BEAKER) 0 % 0-1 (test cblv=6625) POCT-GLUCOSE [id number] 05:52:00 Test Item Value Reference Range Comments POC-GLUCOSE METER (BEAKER) 127 mg/dL 70-110 TESTED AT [address] (test icls=0948) [place] [id number] POCT-GLUCOSE [id number] 00:07:00 Test Item Value Reference Range Comments POC-GLUCOSE METER (BEAKER) 122 mg/dL 70-110 TESTED AT [address] (test ituv=9460) [place] [address] POCT-GLUCOSE [id number] 18:02:00 Test Item Value Reference Range Comments POC-GLUCOSE METER (BEAKER) 129 mg/dL 70-110 TESTED AT [address] (test eliv=3199) [place] [address] POCT-GLUCOSE [id number] 13:16:00 Test Item Value Reference Range Comments POC-GLUCOSE METER (BEAKER) 142 mg/dL 70-110 TESTED AT [address] (test fjku=2825) [facility] [address] POCT-GLUCOSE [id number] 08:04:00 Test Item Value Reference Range Comments POC-GLUCOSE METER (BEAKER) 152 mg/dL 70-110 TESTED AT [address] (test ptfr=6356) [place] [id number] POCT-GLUCOSE [id number] 07:23:00 Test Item Value Reference Range Comments POC-GLUCOSE METER (BEAKER) 136 mg/dL 70-110 TESTED AT [address] (test svds=5562) [place] [address] CBC W/PLT COUNT & AUTO [id number] 06:27:00 Test Item Value Reference Range Comments WHITE BLOOD CELL COUNT (BEAKER) (test mofi=782) 10.1 K/ L 3.5-10.5 RED BLOOD CELL COUNT (BEAKER) (test xzue=872) 2.93 M/ L 4.63-6.08 HEMOGLOBIN (BEAKER) (test rntc=993) 8.8 GM/DL 13.7-17.5 HEMATOCRIT (BEAKER) (test lngk=691) 27.2 % 40.1-51.0 MEAN CORPUSCULAR VOLUME (BEAKER) (test xcso=792) 92.8 fL 79.0-92.2 MEAN CORPUSCULAR HEMOGLOBIN (BEAKER) (test 30.0 pg 25.7-32.2 hkan=095) MEAN CORPUSCULAR HEMOGLOBIN CONC (BEAKER) (test 32.4 GM/DL 32.3-36.5 sfjs=084) RED CELL DISTRIBUTION WIDTH (BEAKER) (test 13.4 % 11.6-14.4 hxqj=538) PLATELET COUNT (BEAKER) (test jqcf=316) 379 K/CU MM 150-450 MEAN PLATELET VOLUME (BEAKER) (test dzpd=743) 10.6 fL 9.4-12.4 NUCLEATED RED BLOOD CELLS (BEAKER) (test 0 /100 WBC 0-0 yyls=436) NEUTROPHILS RELATIVE PERCENT (BEAKER) (test 84 % gpfs=236) LYMPHOCYTES RELATIVE PERCENT (BEAKER) (test 7 % uhzu=915) MONOCYTES RELATIVE PERCENT (BEAKER) (test 6 % pvde=242) EOSINOPHILS RELATIVE PERCENT (BEAKER) (test 2 % djgf=843) BASOPHILS RELATIVE PERCENT (BEAKER) (test 0 % fkuk=472) NEUTROPHILS ABSOLUTE COUNT (BEAKER) (test 8.46 K/ L 1.78-5.38 qyjy=154) LYMPHOCYTES ABSOLUTE COUNT (BEAKER) (test 0.72 K/ L 1.32-3.57 ctpu=075) MONOCYTES ABSOLUTE COUNT (BEAKER) (test 0.65 K/ L 0.30-0.82 atlf=250) EOSINOPHILS ABSOLUTE COUNT (BEAKER) (test 0.21 K/ L 0.04-0.54 vljg=561) BASOPHILS ABSOLUTE COUNT (BEAKER) (test 0.03 K/ L 0.01-0.08 fdbu=340) IMMATURE GRANULOCYTES-RELATIVE PERCENT (BEAKER) 0 % 0-1 (test zxyq=7851) POCT-GLUCOSE [id number] 06:26:00 Test Item Value Reference Range Comments POC-GLUCOSE METER (BEAKER) 155 mg/dL 70-110 TESTED AT [address] (test sefk=0206) [place] [address] POCT-GLUCOSE [id number] 00:52:00 Test Item Value Reference Range Comments POC-GLUCOSE METER (BEAKER) 139 mg/dL 70-110 TESTED AT [address] (test cdml=4834) [place] [address] POCT-GLUCOSE [id number] 16:47:00 Test Item Value Reference Range Comments POC-GLUCOSE METER (BEAKER) 138 mg/dL 70-110 TESTED AT [address] (test orqt=5683) [place] [address] WOUND CULTURE + GRAM [id number] 13:03:00 Test Item Value Reference Range Comments CULTURE (BEAKER) (test kleu=3971) See comment GRAM STAIN RESULT (BEAKER) (test No White blood cells seen tdmy=8006) GRAM STAIN RESULT (BEAKER) (test No organisms seen zrks=57753) <1+ Skin floraPOCT-GLUCOSE [id number] 06:36:00 Test Item Value Reference Range Comments POC-GLUCOSE METER (BEAKER) 141 mg/dL 70-110 TESTED AT [address] (test gxqh=4210) [place] [address] BASIC METABOLIC [id number] 05:56:00 Test Item Value Reference Range Comments SODIUM (BEAKER) (test 141 meq/L 136-145 vtwk=780) POTASSIUM (BEAKER) (test 3.6 meq/L 3.5-5.1 tnus=689) CHLORIDE (BEAKER) (test 109 meq/L 98-107 mjkh=285) CO2 (BEAKER) (test 28 meq/L 22-29 wdnl=183) BLOOD UREA NITROGEN 20 mg/dL 7-21 (BEAKER) (test aafp=864) CREATININE (BEAKER) (test 0.76 mg/dL 0.57-1.25 fhor=531) GLUCOSE RANDOM (BEAKER) 134 mg/dL 70-105 (test twhc=790) CALCIUM (BEAKER) (test 8.3 mg/dL 8.4-10.2 gjqn=549) EGFR (BEAKER) (test 105 mL/min/1.73 sq m ESTIMATED GFR IS NOT ovxs=6732) ACCURATE CREATININE CLEARANCE IN PREDICTING GLOMERULAR FILTRATION RATE. ESTIMATED GFR IS NOT APPLICABLE FOR DIALYSIS PATIENTS. CBC W/PLT COUNT & AUTO [id number] 05:45:00 Test Item Value Reference Range Comments WHITE BLOOD CELL COUNT (BEAKER) (test dwlz=813) 10.7 K/ L 3.5-10.5 RED BLOOD CELL COUNT (BEAKER) (test qrqh=233) 3.04 M/ L 4.63-6.08 HEMOGLOBIN (BEAKER) (test yrrl=669) 9.1 GM/DL 13.7-17.5 HEMATOCRIT (BEAKER) (test bisu=370) 28.3 % 40.1-51.0 MEAN CORPUSCULAR VOLUME (BEAKER) (test kngh=201) 93.1 fL 79.0-92.2 MEAN CORPUSCULAR HEMOGLOBIN (BEAKER) (test 29.9 pg 25.7-32.2 sjlu=404) MEAN CORPUSCULAR HEMOGLOBIN CONC (BEAKER) (test 32.2 GM/DL 32.3-36.5 agkp=131) RED CELL DISTRIBUTION WIDTH (BEAKER) (test 13.5 % 11.6-14.4 iutg=638) PLATELET COUNT (BEAKER) (test wnpz=421) 368 K/CU MM 150-450 MEAN PLATELET VOLUME (BEAKER) (test vvfo=347) 10.2 fL 9.4-12.4 NUCLEATED RED BLOOD CELLS (BEAKER) (test 0 /100 WBC 0-0 pnge=897) NEUTROPHILS RELATIVE PERCENT (BEAKER) (test 84 % lbzg=253) LYMPHOCYTES RELATIVE PERCENT (BEAKER) (test 7 % xwpp=099) MONOCYTES RELATIVE PERCENT (BEAKER) (test 6 % wxdz=649) EOSINOPHILS RELATIVE PERCENT (BEAKER) (test 2 % fnyu=429) BASOPHILS RELATIVE PERCENT (BEAKER) (test 0 % vsxp=207) NEUTROPHILS ABSOLUTE COUNT (BEAKER) (test 8.99 K/ L 1.78-5.38 urqq=658) LYMPHOCYTES ABSOLUTE COUNT (BEAKER) (test 0.75 K/ L 1.32-3.57 kgga=998) MONOCYTES ABSOLUTE COUNT (BEAKER) (test 0.65 K/ L 0.30-0.82 pxas=091) EOSINOPHILS ABSOLUTE COUNT (BEAKER) (test 0.20 K/ L 0.04-0.54 cjit=409) BASOPHILS ABSOLUTE COUNT (BEAKER) (test 0.03 K/ L 0.01-0.08 hjoe=624) IMMATURE GRANULOCYTES-RELATIVE PERCENT (AKER) 1 % 0-1 (test zrtp=7104) POCT-GLUCOSE [id number] 00:12:00 Test Item Value Reference Range Comments POC-GLUCOSE METER (BEAKER) 152 mg/dL 70-110 TESTED AT [address] (test wqfv=0165) [place] [address] POCT-GLUCOSE [id number] 18:20:00 Test Item Value Reference Range Comments POC-GLUCOSE METER (BEAKER) 104 mg/dL 70-110 TESTED AT [address] (test lwsy=9320) [place] [address] HSV 1/2 PCR, [id number] 14:05:00 Test Item Value Reference Range Comments HSV BY PCR (AKER) (test ksae=021) NEGATIVE NEGATIVE Herpes Simplex Virus (HSV) not detected.These assays were performed by real- time PCR utilizing fluorogenic hydrolysis probe technology for the detection of Herpes Simplex Virus-1 and/or Herpes Simplex Virus-2 in approved specimens. A 154 base pair region of the HSV-1 and HSV-2 UL5 gene is amplified, and typing is achieved by using type specific probes. An internal control is used to confirm PCR amplification. Genetic variation and other factors can affect the accuracy of nucleic acid testing; therefore, the results should be interpreted in light of clinical data.This test was developed and its performance characteristics determined by the [facility] Pathology Department, Section of Molecular Pathology. It has not been cleared or approved by the U.S. Food and Drug Administration (FDA), as FDA approval is not required for clinical use of the test. Validation was done as required by the Clinical Laboratory Amendments of 1988.POCT-GLUCOSE [id number] 07:03:00 Test Item Value Reference Range Comments POC-GLUCOSE METER (BEAKER) 136 mg/dL 70-110 TESTED AT [address] (test nzvk=8773) [place] [address] CBC W/PLT COUNT & AUTO [id number] 04:25:00 Test Item Value Reference Range Comments WHITE BLOOD CELL COUNT (BEAKER) (test juul=872) 13.0 K/ L 3.5-10.5 RED BLOOD CELL COUNT (BEAKER) (test mulg=562) 2.99 M/ L 4.63-6.08 HEMOGLOBIN (BEAKER) (test wwzp=810) 9.0 GM/DL 13.7-17.5 HEMATOCRIT (BEAKER) (test dken=758) 27.8 % 40.1-51.0 MEAN CORPUSCULAR VOLUME (BEAKER) (test nnwv=301) 93.0 fL 79.0-92.2 MEAN CORPUSCULAR HEMOGLOBIN (BEAKER) (test 30.1 pg 25.7-32.2 lvfq=396) MEAN CORPUSCULAR HEMOGLOBIN CONC (BEAKER) (test 32.4 GM/DL 32.3-36.5 fdhv=944) RED CELL DISTRIBUTION WIDTH (BEAKER) (test 13.2 % 11.6-14.4 uzmb=903) PLATELET COUNT (BEAKER) (test ngqn=400) 365 K/CU MM 150-450 MEAN PLATELET VOLUME (BEAKER) (test wuis=060) 10.7 fL 9.4-12.4 NUCLEATED RED BLOOD CELLS (BEAKER) (test 0 /100 WBC 0-0 tukd=812) NEUTROPHILS RELATIVE PERCENT (BEAKER) (test 85 % upzs=504) LYMPHOCYTES RELATIVE PERCENT (BEAKER) (test 7 % jcoi=604) MONOCYTES RELATIVE PERCENT (BEAKER) (test 6 % hixj=045) EOSINOPHILS RELATIVE PERCENT (BEAKER) (test 1 % irue=166) BASOPHILS RELATIVE PERCENT (BEAKER) (test 0 % xhwp=246) NEUTROPHILS ABSOLUTE COUNT (BEAKER) (test 11.08 K/ L 1.78-5.38 apnd=429) LYMPHOCYTES ABSOLUTE COUNT (BEAKER) (test 0.88 K/ L 1.32-3.57 zdxe=642) MONOCYTES ABSOLUTE COUNT (BEAKER) (test 0.81 K/ L 0.30-0.82 cait=175) EOSINOPHILS ABSOLUTE COUNT (BEAKER) (test 0.16 K/ L 0.04-0.54 ezyn=411) BASOPHILS ABSOLUTE COUNT (BEAKER) (test 0.04 K/ L 0.01-0.08 znig=630) IMMATURE GRANULOCYTES-RELATIVE PERCENT (BEAKER) 1 % 0-1 (test bbte=1339) POCT-GLUCOSE [id number] 01:03:00 Test Item Value Reference Range Comments POC-GLUCOSE METER (BEAKER) 143 mg/dL 70-110 TESTED AT [facility] [address] [facility] (test maca=1681) [facility] [address] RAD, CHEST, 1 VIEW, NON [id number] 18:46:00Reason for exam:->check picc placementShould this be performed at the bedside?->YesFINAL REPORT Portable chest. CLINICAL HISTORY: check picc placement. COMPARISON STUDY: October 27, 2018. FINDINGS: The cardiac silhouette is enlarged. The pulmonary parenchyma demonstrates atelectasis or consolidation in both lung bases with costophrenic angle blunting and airspaceopacities throughout the remaining lung ramirez. A left PICC line is in place, the tip projecting over the distal SVC. A feeding tube is again identified. No pneumothorax is seen. Degenerative changes are noted. IMPRESSION: Left PICC line insertion, the tip projecting over the SVC. Worsening of pulmonary opacities, possibly related to volume overload or infection. Signed: Praful Rae MDReport Verified Date/ Time: 10/27/2018 18:46:24 Reading Location: [address] Consult Reading Room HSV 1/ 2 PCR, [id number] 14:09:00 Test Item Value Reference Range Comments HSV BY PCR (BEAKER) (test czal=901) NEGATIVE NEGATIVE Herpes Simplex Virus (HSV) not detected.These assays were performed by real- time PCR utilizing fluorogenic hydrolysis probe technology for the detection of Herpes Simplex Virus-1 and/or Herpes Simplex Virus-2 in approved specimens. A 154 base pair region of the HSV-1 and HSV-2 UL5 gene is amplified, and typing is achieved by using type specific probes. An internal control is used to confirm PCR amplification. Genetic variation and other factors can affect the accuracy of nucleic acid testing; therefore, the results should be interpreted in light of clinical data.This test was developed and its performance characteristics determined by the [facility] Pathology Department, Section of Molecular Pathology. It has not been cleared or approved by the U.S. Food and Drug Administration (FDA), as FDA approval is not required for clinical use of the test. Validation was done as required by the Clinical Laboratory Amendments of 1988.POCT-GLUCOSE [id number] 12:26:00 Test Item Value Reference Range Comments POC-GLUCOSE METER (BEAKER) 154 mg/dL 70-110 TESTED AT [facility] [address] [facility] (test rsnk=1061) [facility] [address] POCT-GLUCOSE [id number] 05:35:00 Test Item Value Reference Range Comments POC-GLUCOSE METER (BEAKER) 135 mg/dL 70-110 TESTED AT [address] (test kbkj=5965) [facility] [address] RAD, CHEST, 1 VIEW, NON [id number] 04:48:00Post-intubationReason for exam:-& gt;intubationShould this be performed at the bedside?->YesFINAL REPORT RAD, CHEST, 1 VIEW, NON DEPT INDICATION: intubation COMPARISON: October 26, 2018 FINDINGS: Portable frontal view of the chest. IMPRESSION: Support Lines: Enteric tube courses below the diaphragm outside the [id number]. Lungs and pleura: Minimal reticular nodular opacities of the right lung and prominent left lung interstitial markings again noted. Findings suggest mild edema or pneumonitis. No new lung consolidation or pneumothorax. Blunted costophrenic angles may represent small pleural effusions.Heart and mediastinum: Stable cardiomediastinal contour. Additional findings: None. Signed : Temo López MDReport Verified Date/Time: 10/27/2018 04:48:32 BASIC METABOLIC [id number] 04:42:00 Test Item Value Reference Range Comments SODIUM (BEAKER) (test 145 meq/L 136-145 olgu=602) POTASSIUM (BEAKER) (test 3.5 meq/L 3.5-5.1 ryfy=423) CHLORIDE (BEAKER) (test 115 meq/L 98-107 khpi=644) CO2 (BEAKER) (test 24 meq/L 22-29 mboy=862) BLOOD UREA NITROGEN 27 mg/dL 7-21 (BEAKER) (test qoin=700) CREATININE (BEAKER) (test 0.75 mg/dL 0.57-1.25 aegb=580) GLUCOSE RANDOM (BEAKER) 122 mg/dL 70-105 (test utqy=227) CALCIUM (BEAKER) (test 8.4 mg/dL 8.4-10.2 xnbk=418) EGFR (BEAKER) (test 106 mL/min/1.73 sq m ESTIMATED GFR IS NOT klxb=1838) ACCURATE CREATININE CLEARANCE IN PREDICTING GLOMERULAR FILTRATION RATE. ESTIMATED GFR IS NOT APPLICABLE FOR DIALYSIS PATIENTS. CBC W/PLT COUNT & AUTO [id number] 04:21:00 Test Item Value Reference Range Comments WHITE BLOOD CELL COUNT (BEAKER) (test faqr=635) 12.0 K/ L 3.5-10.5 RED BLOOD CELL COUNT (BEAKER) (test txjr=042) 3.18 M/ L 4.63-6.08 HEMOGLOBIN (BEAKER) (test mddq=731) 9.4 GM/DL 13.7-17.5 HEMATOCRIT (BEAKER) (test wqgf=042) 29.8 % 40.1-51.0 MEAN CORPUSCULAR VOLUME (BEAKER) (test tvoc=072) 93.7 fL 79.0-92.2 MEAN CORPUSCULAR HEMOGLOBIN (BEAKER) (test 29.6 pg 25.7-32.2 cpip=519) MEAN CORPUSCULAR HEMOGLOBIN CONC (BEAKER) (test 31.5 GM/DL 32.3-36.5 upmp=669) RED CELL DISTRIBUTION WIDTH (BEAKER) (test 13.2 % 11.6-14.4 jqog=431) PLATELET COUNT (BEAKER) (test tygx=765) 323 K/CU MM 150-450 MEAN PLATELET VOLUME (BEAKER) (test jztp=746) 10.7 fL 9.4-12.4 NUCLEATED RED BLOOD CELLS (BEAKER) (test 0 /100 WBC 0-0 voew=944) NEUTROPHILS RELATIVE PERCENT (BEAKER) (test 84 % lwkw=147) LYMPHOCYTES RELATIVE PERCENT (BEAKER) (test 8 % skps=917) MONOCYTES RELATIVE PERCENT (BEAKER) (test 6 % trng=008) EOSINOPHILS RELATIVE PERCENT (BEAKER) (test 2 % uvzn=278) BASOPHILS RELATIVE PERCENT (BEAKER) (test 0 % ffmm=542) NEUTROPHILS ABSOLUTE COUNT (BEAKER) (test 10.08 K/ L 1.78-5.38 qakx=700) LYMPHOCYTES ABSOLUTE COUNT (BEAKER) (test 0.94 K/ L 1.32-3.57 daky=899) MONOCYTES ABSOLUTE COUNT (BEAKER) (test 0.68 K/ L 0.30-0.82 liek=128) EOSINOPHILS ABSOLUTE COUNT (BEAKER) (test 0.25 K/ L 0.04-0.54 omvw=727) BASOPHILS ABSOLUTE COUNT (BEAKER) (test 0.03 K/ L 0.01-0.08 qrhz=537) IMMATURE GRANULOCYTES-RELATIVE PERCENT (BEAKER) 0 % 0-1 (test doqg=6822) POCT-GLUCOSE [id number] 17:50:00 Test Item Value Reference Range Comments POC-GLUCOSE METER (BEAKER) 125 mg/dL 70-110 TESTED AT [address] (test wihr=5871) [place] [address] VANCOMYCIN LEVEL, [id number] 16:33:00 Test Item Value Reference Range Comments VANCOMYCIN TROUGH (BEAKER) (test waic=520) 11.6 ug/mL 10.0-20.0 POCT-GLUCOSE [id number] 13:00:00 Test Item Value Reference Range Comments POC-GLUCOSE METER (BEAKER) 116 mg/dL 70-110 TESTED AT [address] (test yowc=5956) [place] [id number] POCT-GLUCOSE [id number] 12:29:00 Test Item Value Reference Range Comments POC-GLUCOSE METER (BEAKER) 151 mg/dL 70-110 TESTED AT [address] (test nqna=5711) [facility] [address] RAD, CHEST, 1 VIEW, NON [id number] 09:33:00Post-intubationReason for exam:-& gt;intubationShould this be performed at the bedside?->YesFINAL REPORT Portable chest. CLINICAL HISTORY: intubation. COMPARISON STUDY: Chest x-ray from yesterday. FINDINGS: The cardiac silhouette is unremarkable. The pulmonary parenchyma demonstrate minimal interstitial and patchy airspace opacities. Minimal right costophrenic angle blunting is noted. The support lines and tubes are unchanged. No pneumothorax is seen. Degenerative changes are noted. IMPRESSION: No significant change. Signed: Praful Raeeport Verified Date/Time: 10/26/2018 09:33:25 Reading Location: [facility] Diagnostic Imaging Reading Room - [facility] [phone] POCT- GLUCOSE [id number] 06:34:00 Test Item Value Reference Range Comments POC-GLUCOSE METER (BEAKER) 126 mg/dL 70-110 TESTED AT [facility] [address] [facility] (test whfr=0642) [facility] [address] BASIC METABOLIC [id number] 05:02:00 Test Item Value Reference Range Comments SODIUM (BEAKER) (test 150 meq/L 136-145 isel=056) POTASSIUM (BEAKER) (test 3.4 meq/L 3.5-5.1 qwnv=859) CHLORIDE (BEAKER) (test 119 meq/L 98-107 kcgv=373) CO2 (BEAKER) (test 25 meq/L 22-29 suky=284) BLOOD UREA NITROGEN 31 mg/dL 7-21 (BEAKER) (test qvob=470) CREATININE (BEAKER) (test 0.75 mg/dL 0.57-1.25 pzcm=886) GLUCOSE RANDOM (BEAKER) 118 mg/dL 70-105 (test lthb=399) CALCIUM (BEAKER) (test 8.2 mg/dL 8.4-10.2 ijqq=670) EGFR (BEAKER) (test 106 mL/min/1.73 sq m ESTIMATED GFR IS NOT jbye=6357) ACCURATE CREATININE CLEARANCE IN PREDICTING GLOMERULAR FILTRATION RATE. ESTIMATED GFR IS NOT APPLICABLE FOR DIALYSIS PATIENTS. CBC W/PLT COUNT & AUTO [id number] 04:39:00 Test Item Value Reference Range Comments WHITE BLOOD CELL COUNT (BEAKER) (test jzrn=058) 11.8 K/ L 3.5-10.5 RED BLOOD CELL COUNT (BEAKER) (test ujve=310) 2.91 M/ L 4.63-6.08 HEMOGLOBIN (BEAKER) (test jojh=191) 8.7 GM/DL 13.7-17.5 HEMATOCRIT (BEAKER) (test lpfu=388) 27.4 % 40.1-51.0 MEAN CORPUSCULAR VOLUME (BEAKER) (test wtuq=761) 94.2 fL 79.0-92.2 MEAN CORPUSCULAR HEMOGLOBIN (BEAKER) (test 29.9 pg 25.7-32.2 gesm=487) MEAN CORPUSCULAR HEMOGLOBIN CONC (BEAKER) (test 31.8 GM/DL 32.3-36.5 tzev=586) RED CELL DISTRIBUTION WIDTH (BEAKER) (test 13.5 % 11.6-14.4 dyji=510) PLATELET COUNT (BEAKER) (test tbyk=020) 272 K/CU MM 150-450 MEAN PLATELET VOLUME (BEAKER) (test zhsj=565) 11.0 fL 9.4-12.4 NUCLEATED RED BLOOD CELLS (BEAKER) (test 0 /100 WBC 0-0 vhqt=179) NEUTROPHILS RELATIVE PERCENT (BEAKER) (test 84 % ytcl=850) LYMPHOCYTES RELATIVE PERCENT (BEAKER) (test 8 % rpag=381) MONOCYTES RELATIVE PERCENT (BEAKER) (test 5 % kpxz=678) EOSINOPHILS RELATIVE PERCENT (BEAKER) (test 2 % mymw=704) BASOPHILS RELATIVE PERCENT (BEAKER) (test 0 % vvfu=267) NEUTROPHILS ABSOLUTE COUNT (BEAKER) (test 9.84 K/ L 1.78-5.38 xodi=125) LYMPHOCYTES ABSOLUTE COUNT (BEAKER) (test 0.96 K/ L 1.32-3.57 xhpc=835) MONOCYTES ABSOLUTE COUNT (BEAKER) (test 0.60 K/ L 0.30-0.82 qzfp=620) EOSINOPHILS ABSOLUTE COUNT (BEAKER) (test 0.24 K/ L 0.04-0.54 dihv=457) BASOPHILS ABSOLUTE COUNT (BEAKER) (test 0.03 K/ L 0.01-0.08 pkke=115) IMMATURE GRANULOCYTES-RELATIVE PERCENT (BEAKER) 1 % 0-1 (test wykj=3759) POCT-GLUCOSE [id number] 00:01:00 Test Item Value Reference Range Comments POC-GLUCOSE METER (BEAKER) 112 mg/dL 70-110 TESTED AT [facility] [address] [facility] (test mbbl=3928) [facility] [address] POCT-GLUCOSE [id number] 12:20:00 Test Item Value Reference Range Comments POC-GLUCOSE METER (BEAKER) 137 mg/dL 70-110 TESTED AT [address] (test nxvz=5419) [place] [id number] 10:23:00 Test Item Value Reference Range Comments POTASSIUM (BEAKER) (test lubn=848) 3.4 meq/L 3.5-5.1 Check Serum Potassium level 2 hours after oral potassium replacement completed or 30 min after intravenous potassium replacement.RAD, CHEST, 1 VIEW, NON [id number] 06:44:00Post-intubationReason for exam:->intubationShould this be performed at the bedside?->YesFINAL REPORT RAD , CHEST, 1 VIEW, NON DEPT INDICATION: intubation COMPARISON: Prior day's exam FINDINGS: Portable frontal view of the chest. IMPRESSION: Support Lines: Stable. Lungs and pleura: Unchanged airspace and pleural opacities. No pneumothorax.Heart and mediastinum: Stable contours. Additional findings: None. Signed: Nicole Cohen Verified Date/Time: 10/25/2018 06:44:01 POCT -GLUCOSE [id number] 06:24:00 Test Item Value Reference Range Comments POC-GLUCOSE METER (BEAKER) 137 mg/dL 70-110 TESTED AT [address] (test bgbu=8024) [place] [address] BASIC METABOLIC [id number] 03:49:00 Test Item Value Reference Range Comments SODIUM (BEAKER) (test 154 meq/L 136-145 cmwq=714) POTASSIUM (BEAKER) (test 3.4 meq/L 3.5-5.1 blcj=625) CHLORIDE (BEAKER) (test 123 meq/L 98-107 brxx=401) CO2 (BEAKER) (test 27 meq/L 22-29 ppny=414) BLOOD UREA NITROGEN 35 mg/dL 7-21 (BEAKER) (test tqnq=567) CREATININE (BEAKER) (test 0.83 mg/dL 0.57-1.25 otwk=051) GLUCOSE RANDOM (BEAKER) 125 mg/dL 70-105 (test vzlu=741) CALCIUM (BEAKER) (test 8.3 mg/dL 8.4-10.2 mktk=409) EGFR (BEAKER) (test 95 mL/min/1.73 sq m ESTIMATED GFR IS NOT ftid=4741) ACCURATE CREATININE CLEARANCE IN PREDICTING GLOMERULAR FILTRATION RATE. ESTIMATED GFR IS NOT APPLICABLE FOR DIALYSIS PATIENTS. CBC W/PLT COUNT & AUTO [id number] 03:33:00 Test Item Value Reference Range Comments WHITE BLOOD CELL COUNT (BEAKER) (test enyz=546) 11.3 K/ L 3.5-10.5 RED BLOOD CELL COUNT (BEAKER) (test fmza=654) 2.95 M/ L 4.63-6.08 HEMOGLOBIN (BEAKER) (test bxxi=356) 8.8 GM/DL 13.7-17.5 HEMATOCRIT (BEAKER) (test bcwl=251) 27.7 % 40.1-51.0 MEAN CORPUSCULAR VOLUME (BEAKER) (test sivd=325) 93.9 fL 79.0-92.2 MEAN CORPUSCULAR HEMOGLOBIN (BEAKER) (test 29.8 pg 25.7-32.2 xweq=877) MEAN CORPUSCULAR HEMOGLOBIN CONC (BEAKER) (test 31.8 GM/DL 32.3-36.5 rifo=161) RED CELL DISTRIBUTION WIDTH (BEAKER) (test 13.3 % 11.6-14.4 amsp=831) PLATELET COUNT (BEAKER) (test xivu=257) 234 K/CU MM 150-450 MEAN PLATELET VOLUME (BEAKER) (test gpbs=802) 10.6 fL 9.4-12.4 NUCLEATED RED BLOOD CELLS (BEAKER) (test 0 /100 WBC 0-0 xmss=464) NEUTROPHILS RELATIVE PERCENT (BEAKER) (test 84 % oobs=763) LYMPHOCYTES RELATIVE PERCENT (BEAKER) (test 7 % mcde=799) MONOCYTES RELATIVE PERCENT (BEAKER) (test 7 % qsba=675) EOSINOPHILS RELATIVE PERCENT (BEAKER) (test 2 % kpyw=926) BASOPHILS RELATIVE PERCENT (BEAKER) (test 0 % syby=026) NEUTROPHILS ABSOLUTE COUNT (BEAKER) (test 9.49 K/ L 1.78-5.38 qcwv=672) LYMPHOCYTES ABSOLUTE COUNT (BEAKER) (test 0.82 K/ L 1.32-3.57 eqsg=700) MONOCYTES ABSOLUTE COUNT (BEAKER) (test 0.75 K/ L 0.30-0.82 azof=873) EOSINOPHILS ABSOLUTE COUNT (BEAKER) (test 0.17 K/ L 0.04-0.54 wcyi=172) BASOPHILS ABSOLUTE COUNT (BEAKER) (test 0.03 K/ L 0.01-0.08 vqux=349) IMMATURE GRANULOCYTES-RELATIVE PERCENT (BEAKER) 1 % 0-1 (test vqcq=0085) POCT-GLUCOSE [id number] 23:50:00 Test Item Value Reference Range Comments POC-GLUCOSE METER (BEAKER) 138 mg/dL 70-110 TESTED AT [address] (test cxpl=7434) [place] [address] POCT-GLUCOSE [id number] 19:01:00 Test Item Value Reference Range Comments POC-GLUCOSE METER (BEAKER) 136 mg/dL 70-110 TESTED AT [address] (test xkgw=4681) [place] [address] BASIC METABOLIC [id number] 15:49:00 Test Item Value Reference Range Comments SODIUM (BEAKER) (test 154 meq/L 136-145 pwod=086) POTASSIUM (BEAKER) (test 3.2 meq/L 3.5-5.1 woku=330) CHLORIDE (BEAKER) (test 122 meq/L 98-107 wvqr=909) CO2 (BEAKER) (test 26 meq/L 22-29 pvjd=518) BLOOD UREA NITROGEN 30 mg/dL 7-21 (BEAKER) (test nkkn=504) CREATININE (BEAKER) (test 0.84 mg/dL 0.57-1.25 amez=489) GLUCOSE RANDOM (BEAKER) 110 mg/dL 70-105 (test snbq=136) CALCIUM (BEAKER) (test 8.3 mg/dL 8.4-10.2 uykh=637) EGFR (BEAKER) (test 93 mL/min/1.73 sq m ESTIMATED GFR IS NOT hhpx=1598) ACCURATE CREATININE CLEARANCE IN PREDICTING GLOMERULAR FILTRATION RATE. ESTIMATED GFR IS NOT APPLICABLE FOR DIALYSIS PATIENTS. POCT-GLUCOSE [id number] 11:26:00 Test Item Value Reference Range Comments POC-GLUCOSE METER (BEAKER) 128 mg/dL 70-110 TESTED AT [address] (test tacf=8085) [facility] [address] POCT-GLUCOSE [id number] 05:56:00 Test Item Value Reference Range Comments POC-GLUCOSE METER (BEAKER) 139 mg/dL 70-110 TESTED AT [facility] [address] [facility] (test srml=1693) [facility] [address] BASIC METABOLIC [id number] 05:11:00 Test Item Value Reference Range Comments SODIUM (BEAKER) (test 156 meq/L 136-145 lmoe=004) POTASSIUM (BEAKER) (test 3.5 meq/L 3.5-5.1 nopi=530) CHLORIDE (BEAKER) (test 125 meq/L 98-107 fgcf=002) CO2 (BEAKER) (test 24 meq/L 22-29 citu=038) BLOOD UREA NITROGEN 29 mg/dL 7-21 (BEAKER) (test ozwz=339) CREATININE (BEAKER) (test 0.82 mg/dL 0.57-1.25 pcae=105) GLUCOSE RANDOM (BEAKER) 114 mg/dL 70-105 (test yxod=612) CALCIUM (BEAKER) (test 7.2 mg/dL 8.4-10.2 hmgn=155) EGFR (BEAKER) (test 96 mL/min/1.73 sq m ESTIMATED GFR IS NOT bqef=4399) ACCURATE CREATININE CLEARANCE IN PREDICTING GLOMERULAR FILTRATION RATE. ESTIMATED GFR IS NOT APPLICABLE FOR DIALYSIS PATIENTS. Check Serum Phosphorus level 4 hours after IV phosphorus replacement or 8 hours after PO replacementcompleted.CBC W/PLT COUNT & AUTO [id number] 05:06:00 Test Item Value Reference Range Comments WHITE BLOOD CELL COUNT (BEAKER) (test ttin=455) 10.8 K/ L 3.5-10.5 RED BLOOD CELL COUNT (BEAKER) (test yqre=833) 2.74 M/ L 4.63-6.08 HEMOGLOBIN (BEAKER) (test uzpr=529) 8.2 GM/DL 13.7-17.5 HEMATOCRIT (BEAKER) (test uvrr=511) 25.9 % 40.1-51.0 MEAN CORPUSCULAR VOLUME (BEAKER) (test drwj=068) 94.5 fL 79.0-92.2 MEAN CORPUSCULAR HEMOGLOBIN (BEAKER) (test 29.9 pg 25.7-32.2 jrwe=246) MEAN CORPUSCULAR HEMOGLOBIN CONC (BEAKER) (test 31.7 GM/DL 32.3-36.5 evkk=978) RED CELL DISTRIBUTION WIDTH (BEAKER) (test 13.2 % 11.6-14.4 nnvh=417) PLATELET COUNT (BEAKER) (test qstb=904) 196 K/CU MM 150-450 MEAN PLATELET VOLUME (BEAKER) (test mufa=446) 10.5 fL 9.4-12.4 NUCLEATED RED BLOOD CELLS (BEAKER) (test 0 /100 WBC 0-0 liph=961) NEUTROPHILS RELATIVE PERCENT (BEAKER) (test 84 % tpew=989) LYMPHOCYTES RELATIVE PERCENT (BEAKER) (test 7 % pxff=739) MONOCYTES RELATIVE PERCENT (BEAKER) (test 7 % qwag=640) EOSINOPHILS RELATIVE PERCENT (BEAKER) (test 1 % ugnk=437) BASOPHILS RELATIVE PERCENT (BEAKER) (test 0 % ldim=719) NEUTROPHILS ABSOLUTE COUNT (BEAKER) (test 9.09 K/ L 1.78-5.38 umsi=283) LYMPHOCYTES ABSOLUTE COUNT (BEAKER) (test 0.73 K/ L 1.32-3.57 krty=001) MONOCYTES ABSOLUTE COUNT (BEAKER) (test 0.79 K/ L 0.30-0.82 aitj=191) EOSINOPHILS ABSOLUTE COUNT (BEAKER) (test 0.10 K/ L 0.04-0.54 zixn=884) BASOPHILS ABSOLUTE COUNT (BEAKER) (test 0.03 K/ L 0.01-0.08 isnn=982) IMMATURE GRANULOCYTES-RELATIVE PERCENT (BEAKER) 1 % 0-1 (test lqsf=1513) [id number] 04:46:00 Test Item Value Reference Range Comments PHOSPHORUS (BEAKER) (test vnrh=849) 3.9 mg/dL 2.3-4.7 Check Serum Phosphorus level 4 hours after IV phosphorus replacement or 8 hours after PO replacementcompleted.[id number] 04:46:00 Test Item Value Reference Range Comments MAGNESIUM (BEAKER) (test iyds=587) 1.8 mg/dL 1.6-2.6 Check Serum Phosphorus level 4 hours after IV phosphorus replacement or 8 hours after PO replacementcompleted.RAD, CHEST, 1 VIEW, NON [id number] 04:24: 00Post-intubationReason for exam:->intubationShould this be performed at the bedside?->YesFINAL REPORT RAD, CHEST, 1 VIEW, NON DEPT INDICATION: intubation COMPARISON: Prior day's exam FINDINGS: Portable frontal view of the chest. IMPRESSION: Support Lines: Intervalextubation. Otherwise unchanged support apparatus. Lungs and pleura: Minimal increased right basilarairspace opacity may represent atelectasis and increasing right pleural effusion however aspiration versus developing infection could have similar appearance the proper clinical setting. No pneumothorax.Heart and mediastinum: Stable contours. Additional findings: None. Signed: Nicole Cohen Verified Date/Time: 10/24/2018 04:24:59 Electronically signed by: Darrell FINN 10/24/2018 04:24 AMBLOOD [id number] 02:01:00 Test Item Value Reference Range Comments CULTURE (BEAKER) (test bjzg=8539) No growth in 5 days BLOOD [id number] 02:01:00 Test Item Value Reference Range Comments CULTURE (BEAKER) (test soty=2870) No growth in 5 days POCT-GLUCOSE [id number] 00:05:00 Test Item Value Reference Range Comments POC-GLUCOSE METER (BEAKER) 134 mg/dL 70-110 TESTED AT [address] (test pabp=1384) [facility] [address] ANAEROBIC [id number] 21:23:00 Test Item Value Reference Range Comments CULTURE (BEAKER) (test bibh=1339) 4+ Propionibacterium acnes TROPONIN [id number] 20:22:00 Test Item Value Reference Range Comments TROPONIN I (BEAKER) (test tnoq=243) < ng/mL 0.00-0.03 Troponin I (TnI) levels must be interpreted in the context of the presenting symptoms and the clinical findings. Elevated TnI levels indicate myocardial damage, but are not specific for ischemic heart disease. Elevated TnI levels are seen in patients with other cardiac conditions (including myocarditis and congestive heart failure), and slight TnI elevations occur in patients with other conditions, including sepsis, renal failure, acidosis, acute neurological disease, and persistent tachyarrhythmia.[id number] 19:18:00 Test Item Value Reference Range Comments POTASSIUM (BEAKER) (test iduj=595) 3.3 meq/L 3.5-5.1 Check Serum Potassium level 2 hours after oral potassium replacement completed or 30 min after intravenous potassium replacement.[id number] 19:18:00 Test Item Value Reference Range Comments MAGNESIUM (BEAKER) (test nltu=389) 1.9 mg/dL 1.6-2.6 Check Serum Potassium level 2 hours after oral potassium replacement completed or 30 min after intravenous potassium replacement.CSF CULTURE + GRAM [id number] 14:38:00 Test Item Value Reference Range Comments CULTURE (BEAKER) (test oehl=2487) No growth GRAM STAIN RESULT (BEAKER) (test 4+ WBCs zred=9268) GRAM STAIN RESULT (BEAKER) (test No organisms seen mohx=70727) VANCOMYCIN LEVEL, [id number] 11:18:00 Test Item Value Reference Range Comments VANCOMYCIN TROUGH (BEAKER) (test hmrm=630) 16.7 ug/mL 10.0-20.0 RAD, CHEST, 1 VIEW, NON [id number] 07:06:00Post-intubationReason for exam:-& gt;intubationShould this be performed at the bedside?->YesFINAL REPORT Chest, one view. HISTORY: intubation COMPARISON: Radiograph from yesterday IMPRESSION: The interstitial edema has decreased with only mild residual interstitial edema on the right. No pleural effusion or pneumothorax. The cardiac silhouette is unchanged. No acute bony abnormality. Unchanged positioning of an endotracheal tube and feeding tube (tip over the gastric fundus). Signed: Gerhard Majano MDReport Verified Date/Time: 10/23/2018 07: 06:10 Reading Location: [address] Body Reading Room POCT-GLUCOSE [id number] 06:36:00 Test Item Value Reference Range Comments POC-GLUCOSE METER (BEAKER) 160 mg/dL 70-110 TESTED AT [facility] [address] [facility] (test zwud=5721) [facility] [address] BLOOD GAS, [id number] 05:55:00 Test Item Value Reference Range Comments PH ARTERIAL (BEAKER) (test wprc=117) 7.50 7.35-7.45 PCO2 ARTERIAL (BEAKER) (test iwjb=181) 36 mmHg 35-45 PO2 ARTERIAL (BEAKER) (test bgfx=087) 178 mmHg 80-90 O2 SATURATION ARTERIAL (BEAKER) (test hrrt=574) 99.3 % 96.0-97.0 HCO3 ARTERIAL (BEAKER) (test soua=508) 27 mmol/L 21-29 BASE EXCESS ARTERIAL (BEAKER) (test ghoc=669) 3.7 mmol/L -2.0-3.0 PATIENT TEMPERATURE (BEAKER) (test nvkm=2947) 37.4 C FIO2 (BEAKER) (test gsme=2905) 40.0 % SODIUM NA-STAT [id number] 05:55:00 Test Item Value Reference Range Comments SODIUM (BEAKER) (test bhyf=150) 149 meq/L 135-148 POTASSIUM-STAT [id number] 05:55:00 Test Item Value Reference Range Comments POTASSIUM (BEAKER) (test dfms=840) 3.4 meq/L 3.6-5.5 GLUCOSE-STAT [id number] 05:55:00 Test Item Value Reference Range Comments GLUCOSE RANDOM (BEAKER) (test jpup=838) 141 mg/dL 70-110 HGB/HCT (H&H) - STAT [id number] 05:55:00 Test Item Value Reference Range Comments HEMOGLOBIN (BEAKER) (test exrh=669) 10.1 g/dL 13.0-16.8 HEMATOCRIT (BEAKER) (test bsrk=290) 30.0 % 40.0-50.0 POCT-GLUCOSE [id number] 05:29:00 Test Item Value Reference Range Comments POC-GLUCOSE METER (BEAKER) 156 mg/dL 70-110 TESTED AT [facility] [address] [facility] (test isbp=1832) [facility] [address] TROPONIN [id number] 04:38:00 Test Item Value Reference Range Comments TROPONIN I (BEAKER) (test ebgg=944) 0.01 ng/mL 0.00-0.03 Troponin I (TnI) levels must be interpreted in the context of the presenting symptoms and the clinical findings. Elevated TnI levels indicate myocardial damage, but are not specific for ischemic heart disease. Elevated TnI levels are seen in patients with other cardiac conditions (including myocarditis and congestive heart failure), and slight TnI elevations occur in patients with other conditions, including sepsis, renal failure, acidosis, acute neurological disease, and persistent tachyarrhythmia.BASIC METABOLIC [id number] 04:31:00 Test Item Value Reference Range Comments SODIUM (BEAKER) (test 153 meq/L 136-145 bunx=579) POTASSIUM (BEAKER) (test 3.6 meq/L 3.5-5.1 scop=072) CHLORIDE (BEAKER) (test 119 meq/L 98-107 isna=780) CO2 (BEAKER) (test 27 meq/L 22-29 txqc=425) BLOOD UREA NITROGEN 29 mg/dL 7-21 (BEAKER) (test aygj=956) CREATININE (BEAKER) (test 0.87 mg/dL 0.57-1.25 rxae=575) GLUCOSE RANDOM (BEAKER) 124 mg/dL 70-105 (test tamt=216) CALCIUM (BEAKER) (test 8.5 mg/dL 8.4-10.2 ptkv=427) EGFR (BEAKER) (test 90 mL/min/1.73 sq m ESTIMATED GFR IS NOT xcsx=4572) ACCURATE CREATININE CLEARANCE IN PREDICTING GLOMERULAR FILTRATION RATE. ESTIMATED GFR IS NOT APPLICABLE FOR DIALYSIS PATIENTS. CBC W/PLT COUNT & AUTO [id number] 04:09:00 Test Item Value Reference Range Comments WHITE BLOOD CELL COUNT (BEAKER) (test wqvg=005) 11.1 K/ L 3.5-10.5 RED BLOOD CELL COUNT (BEAKER) (test ycnn=406) 3.21 M/ L 4.63-6.08 HEMOGLOBIN (BEAKER) (test qugr=311) 9.7 GM/DL 13.7-17.5 HEMATOCRIT (BEAKER) (test jtyb=597) 30.7 % 40.1-51.0 MEAN CORPUSCULAR VOLUME (BEAKER) (test nfcc=887) 95.6 fL 79.0-92.2 MEAN CORPUSCULAR HEMOGLOBIN (BEAKER) (test 30.2 pg 25.7-32.2 irij=070) MEAN CORPUSCULAR HEMOGLOBIN CONC (BEAKER) (test 31.6 GM/DL 32.3-36.5 mdcp=476) RED CELL DISTRIBUTION WIDTH (BEAKER) (test 13.2 % 11.6-14.4 cebd=440) PLATELET COUNT (BEAKER) (test eoib=739) 217 K/CU MM 150-450 MEAN PLATELET VOLUME (BEAKER) (test dplg=768) 11.4 fL 9.4-12.4 NUCLEATED RED BLOOD CELLS (BEAKER) (test 0 /100 WBC 0-0 zmmd=568) NEUTROPHILS RELATIVE PERCENT (BEAKER) (test 84 % lser=777) LYMPHOCYTES RELATIVE PERCENT (BEAKER) (test 7 % eplw=496) MONOCYTES RELATIVE PERCENT (BEAKER) (test 8 % ejet=318) EOSINOPHILS RELATIVE PERCENT (BEAKER) (test 1 % rrdw=701) BASOPHILS RELATIVE PERCENT (BEAKER) (test 0 % hmow=815) NEUTROPHILS ABSOLUTE COUNT (BEAKER) (test 9.31 K/ L 1.78-5.38 frkr=411) LYMPHOCYTES ABSOLUTE COUNT (BEAKER) (test 0.77 K/ L 1.32-3.57 lmpc=235) MONOCYTES ABSOLUTE COUNT (BEAKER) (test 0.89 K/ L 0.30-0.82 yhps=684) EOSINOPHILS ABSOLUTE COUNT (BEAKER) (test 0.08 K/ L 0.04-0.54 kazj=162) BASOPHILS ABSOLUTE COUNT (BEAKER) (test 0.03 K/ L 0.01-0.08 mklv=635) IMMATURE GRANULOCYTES-RELATIVE PERCENT (BEAKER) 1 % 0-1 (test ezbv=0489) [id number] 02:15:00 Test Item Value Reference Range Comments MAGNESIUM (BEAKER) (test 1.9 mg/dL 1.6-2.6 Specimen slightly hemolyzed gmlt=074) Check Serum Phosphorus level 4 hours after IV phosphorus replacement or 8 hours after PO replacementcompleted.Check Serum Potassium level 2 hours after oral potassium replacement completed or 30 min after intravenous potassium replacement.[id number] 02:15:00 Test Item Value Reference Range Comments PHOSPHORUS (BEAKER) (test 3.5 mg/dL 2.3-4.7 Specimen slightly hemolyzed aqau=693) Check Serum Phosphorus level 4 hours after IV phosphorus replacement or 8 hours after PO replacementcompleted.Check Serum Potassium level 2 hours after oral potassium replacement completed or 30 min after intravenous potassium replacement.[id number] 02:15:00 Test Item Value Reference Range Comments POTASSIUM (BEAKER) (test 4.4 meq/L 3.5-5.1 Specimen slightly hemolyzed rlcz=490) Check Serum Phosphorus level 4 hours after IV phosphorus replacement or 8 hours after PO replacementcompleted.Check Serum Potassium level 2 hours after oral potassium replacement completed or 30 min after intravenous potassium replacement.POCT-GLUCOSE [id number] 00:33:00 Test Item Value Reference Range Comments POC-GLUCOSE METER (BEAKER) 130 mg/dL 70-110 TESTED AT [address] (test tgnn=0466) [place] [id number] CALCIUM, [id number] 00:31:00 Test Item Value Reference Range Comments CALCIUM IONIZED (BEAKER) (test blzv=276) 1.19 mmol/L 1.12-1.27 PH, BLOOD (BEAKER) (test vgmm=9360) 7.46 Check serum Ionized Calcium level after 4 hours after IV Calcium replacement.[id number] 19:59:00 Test Item Value Reference Range Comments PHOSPHORUS (BEAKER) (test fhil=571) 4.0 mg/dL 2.3-4.7 Check Serum Phosphorus level 4 hours after IV phosphorus replacement or 8 hours after PO replacementcompleted.POCT-GLUCOSE [id number] 18:19:00 Test Item Value Reference Range Comments POC-GLUCOSE METER (BEAKER) 136 mg/dL 70-110 TESTED AT [address] (test jeex=6013) [place] [id number] 14:53:00 Test Item Value Reference Range Comments POTASSIUM (BEAKER) (test 4.1 meq/L 3.5-5.1 Specimen slightly hemolyzed duzq=454) Check Serum Potassium level 2 hours after oral potassium replacement completed or 30 min after intravenous potassium replacement.RAD, CHEST, 1 VIEW, NON [id number] 12:01:00Post-intubationReason for exam:->intubationShould this be performed at the bedside?->YesFINAL REPORT AP chest HISTORY: Intubation. COMPARISON: 10/21/2018. IMPRESSION:Supportive lines unchanged. Stable cardiac silhouette. Mild interstitial prominence. No pneumothorax. Signed: Luis Hickey MDReport Verified Date/Time: 10/22/2018 12:01:09 Reading Location: [facility] B1 [id number] Ortho Consult Reading Room POCT-GLUCOSE [id number] 11:57:00 Test Item Value Reference Range Comments POC-GLUCOSE METER (BEAKER) 144 mg/dL 70-110 TESTED AT [address] (test ltqa=1043) [place] [id number] POCT-GLUCOSE [id number] 09:31:00 Test Item Value Reference Range Comments POC-GLUCOSE METER (BEAKER) 139 mg/dL 70-110 TESTED AT [address] (test mljb=8389) [place] [address] [id number] 07:30:00 Test Item Value Reference Range Comments POTASSIUM (BEAKER) (test zhje=199) 2.1 meq/L 3.5-5.1 Check Serum Phosphorus level 4 hours after IV phosphorus replacement or 8 hours after PO replacementcompleted.8 hours after PO replacement [id number] 07:28:00 Test Item Value Reference Range Comments PHOSPHORUS (BEAKER) (test lcym=712) 2.1 mg/dL 2.3-4.7 Check Serum Phosphorus level 4 hours after IV phosphorus replacement or 8 hours after PO replacementcompleted.8 hours after PO replacement completedPOCT- GLUCOSE [id number] 06:15:00 Test Item Value Reference Range Comments POC-GLUCOSE METER (BEAKER) 139 mg/dL 70-110 TESTED AT [address] (test ptws=0482) [place] [id number] VANCOMYCIN LEVEL, [id number] 05:35:00 Test Item Value Reference Range Comments VANCOMYCIN TROUGH (BEAKER) (test pslb=820) 5.8 ug/mL 10.0-20.0 BASIC METABOLIC [id number] 02:16:00 Test Item Value Reference Range Comments SODIUM (BEAKER) (test 147 meq/L 136-145 xtii=617) POTASSIUM (BEAKER) (test 3.3 meq/L 3.5-5.1 hzga=518) CHLORIDE (BEAKER) (test 115 meq/L 98-107 csup=421) CO2 (BEAKER) (test 26 meq/L 22-29 ijrw=932) BLOOD UREA NITROGEN 24 mg/dL 7-21 (BEAKER) (test cqeu=809) CREATININE (BEAKER) (test 0.79 mg/dL 0.57-1.25 aocn=687) GLUCOSE RANDOM (BEAKER) 140 mg/dL 70-105 (test yugs=186) CALCIUM (BEAKER) (test 8.4 mg/dL 8.4-10.2 nelx=902) EGFR (BEAKER) (test 100 mL/min/1.73 sq m ESTIMATED GFR IS NOT uzrh=6173) ACCURATE CREATININE CLEARANCE IN PREDICTING GLOMERULAR FILTRATION RATE. ESTIMATED GFR IS NOT APPLICABLE FOR DIALYSIS PATIENTS. CBC W/PLT COUNT & AUTO [id number] 02:03:00 Test Item Value Reference Range Comments WHITE BLOOD CELL COUNT (BEAKER) (test xmfv=105) 11.7 K/ L 3.5-10.5 RED BLOOD CELL COUNT (BEAKER) (test rphf=238) 3.12 M/ L 4.63-6.08 HEMOGLOBIN (BEAKER) (test vbea=055) 9.5 GM/DL 13.7-17.5 HEMATOCRIT (BEAKER) (test msvp=310) 29.0 % 40.1-51.0 MEAN CORPUSCULAR VOLUME (BEAKER) (test dbrz=365) 92.9 fL 79.0-92.2 MEAN CORPUSCULAR HEMOGLOBIN (BEAKER) (test 30.4 pg 25.7-32.2 yibd=751) MEAN CORPUSCULAR HEMOGLOBIN CONC (BEAKER) (test 32.8 GM/DL 32.3-36.5 aora=840) RED CELL DISTRIBUTION WIDTH (BEAKER) (test 13.2 % 11.6-14.4 rlgx=669) PLATELET COUNT (BEAKER) (test ddzq=538) 173 K/CU MM 150-450 MEAN PLATELET VOLUME (BEAKER) (test kfen=027) 11.0 fL 9.4-12.4 NUCLEATED RED BLOOD CELLS (BEAKER) (test 0 /100 WBC 0-0 baea=786) NEUTROPHILS RELATIVE PERCENT (BEAKER) (test 80 % noea=784) LYMPHOCYTES RELATIVE PERCENT (BEAKER) (test 7 % djls=379) MONOCYTES RELATIVE PERCENT (BEAKER) (test 12 % fmwp=815) EOSINOPHILS RELATIVE PERCENT (BEAKER) (test 0 % wnez=539) BASOPHILS RELATIVE PERCENT (BEAKER) (test 0 % gdqs=376) NEUTROPHILS ABSOLUTE COUNT (BEAKER) (test 9.36 K/ L 1.78-5.38 ysps=041) LYMPHOCYTES ABSOLUTE COUNT (BEAKER) (test 0.82 K/ L 1.32-3.57 ulnz=290) MONOCYTES ABSOLUTE COUNT (BEAKER) (test 1.43 K/ L 0.30-0.82 oyec=155) EOSINOPHILS ABSOLUTE COUNT (BEAKER) (test 0.03 K/ L 0.04-0.54 apkg=990) BASOPHILS ABSOLUTE COUNT (BEAKER) (test 0.02 K/ L 0.01-0.08 jaet=900) IMMATURE GRANULOCYTES-RELATIVE PERCENT (BEAKER) 1 % 0-1 (test zdxu=7308) BLOOD GAS, [id number] 02:03:00 Test Item Value Reference Range Comments PH ARTERIAL (BEAKER) (test fiit=125) 7.49 7.35-7.45 PCO2 ARTERIAL (BEAKER) (test roni=391) 37 mmHg 35-45 PO2 ARTERIAL (BEAKER) (test gwtc=289) 197 mmHg 80-90 O2 SATURATION ARTERIAL (BEAKER) (test ukxr=261) 99.4 % 96.0-97.0 HCO3 ARTERIAL (BEAKER) (test xgej=963) 27 mmol/L 21-29 BASE EXCESS ARTERIAL (BEAKER) (test ghwu=760) 4.1 mmol/L -2.0-3.0 PATIENT TEMPERATURE (BEAKER) (test mxsy=0424) 38.0 C FIO2 (BEAKER) (test dsyk=8975) 40.0 % POCT-GLUCOSE [id number] 01:51:00 Test Item Value Reference Range Comments POC-GLUCOSE METER (BEAKER) 142 mg/dL 70-110 TESTED AT [address] (test xayu=7030) [facility] [address] POCT-GLUCOSE [id number] 18:38:00 Test Item Value Reference Range Comments POC-GLUCOSE METER (BEAKER) 139 mg/dL 70-110 TESTED AT [address] (test jysf=3337) [facility] [address] [id number] 13:50:00 Test Item Value Reference Range Comments MAGNESIUM (BEAKER) (test 2.3 mg/dL 1.6-2.6 Specimen slightly hemolyzed yuzh=424) Check Serum Potassium level 2 hours after oral potassium replacement completed or 30 min after intravenous potassium replacement.[id number] 13:50:00 Test Item Value Reference Range Comments POTASSIUM (BEAKER) (test 3.8 meq/L 3.5-5.1 Specimen slightly hemolyzed vjjy=436) Check Serum Potassium level 2 hours after oral potassium replacement completed or 30 min after intravenous potassium replacement.POCT-GLUCOSE [id number] 12:33:00 Test Item Value Reference Range Comments POC-GLUCOSE METER (BEAKER) 157 mg/dL 70-110 TESTED AT [facility] [address] [facility] (test fswi=0248) [facility] [address] SINUS CULTURE + GRAM [id number] 09:30:00 Test Item Value Reference Range Comments CULTURE (BEAKER) (test 1+ Normal respiratory mariano ujpq=2693) present GRAM STAIN RESULT (BEAKER) <1+ WBCs (test wezk=8774) GRAM STAIN RESULT (BEAKER) <1+ gram positive cocci in pairs (test scxa=03643) RAD, CHEST, 1 VIEW, NON [id number] 09:21:00Post-intubationReason for exam:-& gt;intubationShould this be performed at the bedside?->YesFINAL REPORT AP chest dated 10/21/2018 Comment: Heart is normal in size. Pulmonary vasculature is unremarkable. Lungs are clear. No pulmonary infiltrate or pleural effusion. Endotracheal tube and feeding tube are present. Signed: Maynor Menjivar [facility] Verified Date/Time: 10/21/2018 09:21:18 Reading Location: [facility] Radiology Reading Room [id number] 08:58:00 Test Item Value Reference Range Comments MAGNESIUM (BEAKER) (test 1.9 mg/dL 1.6-2.6 Specimen slightly hemolyzed einf=030) [id number] 08:58:00 Test Item Value Reference Range Comments PHOSPHORUS (BEAKER) (test 2.1 mg/dL 2.3-4.7 Specimen slightly hemolyzed vztb=443) BASIC METABOLIC [id number] 08:58:00 Test Item Value Reference Range Comments SODIUM (BEAKER) (test 145 meq/L 136-145 bsoh=165) POTASSIUM (BEAKER) (test 3.3 meq/L 3.5-5.1 Specimen slightly zxme=535) hemolyzed CHLORIDE (BEAKER) (test 113 meq/L 98-107 qejv=151) CO2 (BEAKER) (test 24 meq/L 22-29 efhm=509) BLOOD UREA NITROGEN 22 mg/dL 7-21 (BEAKER) (test mzdd=756) CREATININE (BEAKER) (test 0.83 mg/dL 0.57-1.25 Specimen slightly swve=267) hemolyzed GLUCOSE RANDOM (BEAKER) 132 mg/dL 70-105 (test fgaf=873) CALCIUM (BEAKER) (test 8.5 mg/dL 8.4-10.2 uozj=389) EGFR (BEAKER) (test 95 mL/min/1.73 sq m ESTIMATED GFR IS NOT qkpr=8091) ACCURATE CREATININE CLEARANCE IN PREDICTING GLOMERULAR FILTRATION RATE. ESTIMATED GFR IS NOT APPLICABLE FOR DIALYSIS PATIENTS. POCT-GLUCOSE [id number] 06:25:00 Test Item Value Reference Range Comments POC-GLUCOSE METER (BEAKER) 127 mg/dL 70-110 TESTED AT [facility] [address] [place] [address] (test vfxd=6028) [facility] [address] CBC W/PLT COUNT & AUTO [id number] 06:02:00 Test Item Value Reference Range Comments WHITE BLOOD CELL COUNT (BEAKER) (test nmrz=869) 12.5 K/ L 3.5-10.5 RED BLOOD CELL COUNT (BEAKER) (test gsgx=353) 3.41 M/ L 4.63-6.08 HEMOGLOBIN (BEAKER) (test jzug=232) 10.2 GM/DL 13.7-17.5 HEMATOCRIT (BEAKER) (test posm=933) 31.6 % 40.1-51.0 MEAN CORPUSCULAR VOLUME (BEAKER) (test nzku=981) 92.7 fL 79.0-92.2 MEAN CORPUSCULAR HEMOGLOBIN (BEAKER) (test 29.9 pg 25.7-32.2 xrhp=897) MEAN CORPUSCULAR HEMOGLOBIN CONC (BEAKER) (test 32.3 GM/DL 32.3-36.5 vmkt=363) RED CELL DISTRIBUTION WIDTH (BEAKER) (test 12.9 % 11.6-14.4 kgbl=373) PLATELET COUNT (BEAKER) (test vkbc=543) 197 K/CU MM 150-450 MEAN PLATELET VOLUME (BEAKER) (test mhhv=478) 11.1 fL 9.4-12.4 NUCLEATED RED BLOOD CELLS (BEAKER) (test 0 /100 WBC 0-0 txec=531) NEUTROPHILS RELATIVE PERCENT (BEAKER) (test 87 % kglj=321) LYMPHOCYTES RELATIVE PERCENT (BEAKER) (test 4 % gygr=933) MONOCYTES RELATIVE PERCENT (BEAKER) (test 8 % nbgc=984) EOSINOPHILS RELATIVE PERCENT (BEAKER) (test 0 % hvbc=405) BASOPHILS RELATIVE PERCENT (BEAKER) (test 0 % gnln=500) NEUTROPHILS ABSOLUTE COUNT (BEAKER) (test 10.85 K/ L 1.78-5.38 ytpy=966) LYMPHOCYTES ABSOLUTE COUNT (BEAKER) (test 0.53 K/ L 1.32-3.57 aykp=139) MONOCYTES ABSOLUTE COUNT (BEAKER) (test 0.99 K/ L 0.30-0.82 bfqj=303) EOSINOPHILS ABSOLUTE COUNT (BEAKER) (test 0.00 K/ L 0.04-0.54 wsqk=966) BASOPHILS ABSOLUTE COUNT (BEAKER) (test 0.02 K/ L 0.01-0.08 oqgf=792) IMMATURE GRANULOCYTES-RELATIVE PERCENT (BEAKER) 1 % 0-1 (test mvmr=0941) BLOOD GAS, [id number] 05:48:00 Test Item Value Reference Range Comments PH ARTERIAL (BEAKER) (test pmmc=613) 7.50 7.35-7.45 PCO2 ARTERIAL (BEAKER) (test qgnr=205) 36 mmHg 35-45 PO2 ARTERIAL (BEAKER) (test lolm=579) 190 mmHg 80-90 O2 SATURATION ARTERIAL (BEAKER) (test srxw=765) 99.4 % 96.0-97.0 HCO3 ARTERIAL (BEAKER) (test hmkj=291) 27 mmol/L 21-29 BASE EXCESS ARTERIAL (BEAKER) (test ksvz=158) 4.0 mmol/L -2.0-3.0 PATIENT TEMPERATURE (BEAKER) (test kdva=7983) 38.0 C FIO2 (BEAKER) (test andu=5306) 50.0 % CBC W/PLT COUNT & AUTO [id number] 04:52:00 Test Item Value Reference Range Comments WHITE BLOOD CELL COUNT 7.9 K/ L 3.5-10.5 (BEAKER) (test pkqk=380) RED BLOOD CELL COUNT (BEAKER) 1.85 M/ L 4.63-6.08 (test udaz=085) HEMOGLOBIN (BEAKER) (test 5.6 GM/DL 13.7-17.5 resj=294) HEMATOCRIT (BEAKER) (test 18.4 % 40.1-51.0 rubc=924) MEAN CORPUSCULAR VOLUME 99.5 fL 79.0-92.2 Discordant MCV results (BEAKER) (test lsui=145) compared to previous results; clinical correlation required. MEAN CORPUSCULAR HEMOGLOBIN 30.3 pg 25.7-32.2 (BEAKER) (test eplu=928) MEAN CORPUSCULAR HEMOGLOBIN 30.4 GM/DL 32.3-36.5 CONC (BEAKER) (test vahu=671) RED CELL DISTRIBUTION WIDTH 12.9 % 11.6-14.4 (BEAKER) (test qllm=264) PLATELET COUNT (BEAKER) (test 105 K/CU MM 150-450 qatc=858) MEAN PLATELET VOLUME (BEAKER) 10.9 fL 9.4-12.4 (test lwbw=812) NUCLEATED RED BLOOD CELLS 0 /100 WBC 0-0 (BEAKER) (test ljba=349) NEUTROPHILS RELATIVE PERCENT 86 % (BEAKER) (test ndfs=470) LYMPHOCYTES RELATIVE PERCENT 5 % (BEAKER) (test lqem=166) MONOCYTES RELATIVE PERCENT 9 % (BEAKER) (test dydf=806) EOSINOPHILS RELATIVE PERCENT 0 % (BEAKER) (test cfsu=052) BASOPHILS RELATIVE PERCENT 0 % (BEAKER) (test ahbe=427) NEUTROPHILS ABSOLUTE COUNT 6.79 K/ L 1.78-5.38 (BEAKER) (test qsoj=600) LYMPHOCYTES ABSOLUTE COUNT 0.38 K/ L 1.32-3.57 (BEAKER) (test xvsz=886) MONOCYTES ABSOLUTE COUNT 0.74 K/ L 0.30-0.82 (BEAKER) (test dveq=344) EOSINOPHILS ABSOLUTE COUNT 0.00 K/ L 0.04-0.54 (BEAKER) (test qpyy=148) BASOPHILS ABSOLUTE COUNT 0.01 K/ L 0.01-0.08 (BEAKER) (test dgtc=061) IMMATURE 0 % 0-1 GRANULOCYTES-RELATIVE PERCENT (BEAKER) (test gbng=2525) BLOOD GAS, [id number] 04:44:00 Test Item Value Reference Range Comments PH ARTERIAL (BEAKER) (test cayu=137) 7.37 7.35-7.45 PCO2 ARTERIAL (BEAKER) (test lwab=853) 36 mmHg 35-45 PO2 ARTERIAL (BEAKER) (test fgyd=308) 30 mmHg 80-90 O2 SATURATION ARTERIAL (BEAKER) (test hnku=008) 52.7 % 96.0-97.0 HCO3 ARTERIAL (BEAKER) (test fvjl=799) 20 mmol/L 21-29 BASE EXCESS ARTERIAL (BEAKER) (test lmhf=445) -4.4 mmol/L -2.0-3.0 PATIENT TEMPERATURE (BEAKER) (test kevb=6236) 37.7 C FIO2 (BEAKER) (test ncgy=6186) 50.0 % POCT-GLUCOSE [id number] 00:28:00 Test Item Value Reference Range Comments POC-GLUCOSE METER (BEAKER) 124 mg/dL 70-110 TESTED AT [address] (test vxmp=3230) [facility] [address] EEG MONITORING WITH VIDEO RECORDING EACH 24 [id number] 20:31:00For STAT EEG - after 5 PM weekdays, weekends and holidays, page the on-call security lead Reason for exam:->meningitis, poor loc, c/f seizureDate(s) of EE10/19/2018 - 2018 DATE OF REPORT: 10/20/2018 ACC: [id number] EEG Number: [id number] Test Location: Inpatient ICU Start time: 10/19/2018 @ 16:12 Stop time: 2018 @ 15:43ICD-10: R41.82 CPT Code: 07191 This bedside monitoring study recorded the electroencephalogram continuously during the designated time period. Monitoring was maintained by neurophysiology technical staff, but was generally unattended, so that any clinical observations were made and documented bythe attending medical or nursing staff. Interpretation of the EEG was made retrospectively at designated time periods. Thus, this report provides retrospective information concerning detection, characterization and quantification of any seizure activity and an analysis of the background EEG activity for specific periods of time rather than real-time interpretation based upon continuous bedside review. 58 y.o. male with no significant past medical history who was transferred to [facility] after three weeks of worsening back pain, found to have meningitis. MEDICATIONS THAT COULD AFFECT EEG: Amphotericin, ampicillin, ceftriaxone, vancomycin TECHNICAL SUMMARY: This is a digital video-EEG recorded with 32 input channels reviewed with bipolar and referential montages using the modified [facility] nomenclature. DESCRIPTION OF RECORD: The bulk of this recording demonstrated a background pattern consistent with sleep, with mixed frequency background slowing and disorganization and frequent spindles. In rare periods of wakefulness, predominantly 6-7Hz activity is seen with an excess of admixed delta activity. There is a clear relative attenuation of alpha and theta band activity. SIGNIFICANT VIDEO EVENTS: None SIGNIFICANT ELECTROCARDIOGRAM EVENTS: None HV : Hyperventilation was not performed. PHOTIC STIMULATION: Photic stimulation was not performed. IMPRESSION: These findings are consistent with a mild- moderate etiologically nonspecific encephalopathy, occurring in the context of focal cerebral dysfunction in the left hemisphere that may be related to a static obstructive or destructive lesion. There are no epileptiform discharges or electrographic seizures. Tomas Son MD Neurophysiology Fellow Maury Rodríguez MD, PhD Neurophysiology/Epilepsy Attending POCT- GLUCOSE [id number] 18:10:00 Test Item Value Reference Range Comments POC-GLUCOSE METER (BEAKER) 145 mg/dL 70-110 TESTED AT [facility] [address] (test figm=6293) [facility] [address] [id number] 16:40:00 Test Item Value Reference Range Comments PROCALCITONIN (BEAKER) (test pivv=8054) 0.32 ng/mL <0.05 SEPSIS RISK (ng/mL)Low: 0.05-0.50Intermediate: 0.51-2.00High: & gt;=2.01HEMOGLOBIN [id number] 14:12:00 Test Item Value Reference Range Comments HEMOGLOBIN A1C (BEAKER) (test lueg=181) 5.4 % 4.3-6.1 CRYPTOCOCCAL [id number] 13:04:00 Test Item Value Reference Range Comments CRYPTOCOCCAL ANTIGEN, SERUM (BEAKER) (test Negative Negative, Interference bqqp=5105) CRYPTOCOCCAL ANTIGEN, [id number] 13:04:00 Test Item Value Reference Range Comments CRYPTOCOCCAL ANTIGEN, CSF (BEAKER) (test Negative Negative, Interference isvr=700) POCT-GLUCOSE [id number] 12:09:00 Test Item Value Reference Range Comments POC-GLUCOSE METER (BEAKER) 158 mg/dL 70-110 TESTED AT [facility] [address] [place] [address] (test cymh=4439) [facility] [address] BLOOD CULTURE, ROUTINE [id number] 11:36:00 Test Item Value Reference Range Comments CULTURE (BEAKER) (test zdrz=4890) No growth BLOOD CULTURE, ROUTINE [id number] 11:35:00 Test Item Value Reference Range Comments CULTURE (BEAKER) (test kiiq=2258) No growth BASIC METABOLIC [id number] 10:02:00 Test Item Value Reference Range Comments SODIUM (BEAKER) (test 140 meq/L 136-145 vezu=257) POTASSIUM (BEAKER) (test 3.2 meq/L 3.5-5.1 pxfz=140) CHLORIDE (BEAKER) (test 109 meq/L 98-107 lqno=633) CO2 (BEAKER) (test 27 meq/L 22-29 yese=395) BLOOD UREA NITROGEN 21 mg/dL 7-21 (BEAKER) (test fqux=620) CREATININE (BEAKER) (test 0.83 mg/dL 0.57-1.25 diji=587) GLUCOSE RANDOM (BEAKER) 165 mg/dL 70-105 (test erlx=636) CALCIUM (BEAKER) (test 8.6 mg/dL 8.4-10.2 gpth=199) EGFR (BEAKER) (test 95 mL/min/1.73 sq m ESTIMATED GFR IS NOT pmac=2018) ACCURATE CREATININE CLEARANCE IN PREDICTING GLOMERULAR FILTRATION RATE. ESTIMATED GFR IS NOT APPLICABLE FOR DIALYSIS PATIENTS. BASIC METABOLIC [id number] 08:59:00 Test Item Value Reference Range Comments SODIUM (BEAKER) (test 160 meq/L 136-145 xpmr=606) POTASSIUM (BEAKER) (test 2.6 meq/L 3.5-5.1 joca=241) CHLORIDE (BEAKER) (test 117 meq/L 98-107 dxkv=113) CO2 (BEAKER) (test 20 meq/L 22-29 pzyz=696) BLOOD UREA NITROGEN 14 mg/dL 7-21 (BEAKER) (test ebed=740) CREATININE (BEAKER) (test 0.71 mg/dL 0.57-1.25 lole=550) GLUCOSE RANDOM (BEAKER) 118 mg/dL 70-105 (test eilr=338) CALCIUM (BEAKER) (test 6.4 mg/dL 8.4-10.2 tcua=248) EGFR (BEAKER) (test 113 mL/min/1.73 sq m ESTIMATED GFR IS NOT yjtg=2573) ACCURATE CREATININE CLEARANCE IN PREDICTING GLOMERULAR FILTRATION RATE. ESTIMATED GFR IS NOT APPLICABLE FOR DIALYSIS PATIENTS. [id number] 08:54:00 Test Item Value Reference Range Comments MAGNESIUM (BEAKER) (test tdmi=344) 1.4 mg/dL 1.6-2.6 RAD, CHEST, 1 VIEW, NON [id number] 08:33:00Post-intubationReason for exam:-& gt;intubationShould this be performed at the bedside?->YesFINAL REPORT TECHNIQUE: Frontal chest radiograph dated 10/20/2018. CLINICAL HISTORY: Intubation COMPARISON STUDY: Chest radiograph dated 10/19/2018 IMPRESSION: There has been interval placement of an enteric tube with the tip of which is below the edge of the film. No pleural effusion or pneumothorax. Cardiomediastinal silhouette is normal in size. No pulmonary edema. Bones areosteopenic. No fracture. Signed: Maggie Lo [facility] Verified Date/ Time: 10/20/2018 08:33:36 Reading Location: [facility] Reading Room POCT-GLUCOSE [id number] 05:50:00 Test Item Value Reference Range Comments POC-GLUCOSE METER (BEAKER) 163 mg/dL 70-110 TESTED AT [facility] [address] [facility] (test jdal=7999) [facility] [address] CBC W/PLT COUNT & AUTO [id number] 05:00:00 Test Item Value Reference Range Comments WHITE BLOOD CELL COUNT (BEAKER) (test smgj=928) 14.1 K/ L 3.5-10.5 RED BLOOD CELL COUNT (BEAKER) (test wjtx=133) 2.81 M/ L 4.63-6.08 HEMOGLOBIN (BEAKER) (test kftx=363) 8.5 GM/DL 13.7-17.5 HEMATOCRIT (BEAKER) (test clnl=138) 25.9 % 40.1-51.0 MEAN CORPUSCULAR VOLUME (BEAKER) (test uyhd=302) 92.2 fL 79.0-92.2 MEAN CORPUSCULAR HEMOGLOBIN (BEAKER) (test 30.2 pg 25.7-32.2 xcdy=462) MEAN CORPUSCULAR HEMOGLOBIN CONC (BEAKER) (test 32.8 GM/DL 32.3-36.5 bdao=754) RED CELL DISTRIBUTION WIDTH (BEAKER) (test 12.5 % 11.6-14.4 vtad=155) PLATELET COUNT (BEAKER) (test ctll=758) 151 K/CU MM 150-450 MEAN PLATELET VOLUME (BEAKER) (test nnmk=626) 10.3 fL 9.4-12.4 NUCLEATED RED BLOOD CELLS (BEAKER) (test 0 /100 WBC 0-0 rhal=676) NEUTROPHILS RELATIVE PERCENT (BEAKER) (test 87 % syao=225) LYMPHOCYTES RELATIVE PERCENT (BEAKER) (test 4 % hodq=850) MONOCYTES RELATIVE PERCENT (BEAKER) (test 9 % qwpa=430) EOSINOPHILS RELATIVE PERCENT (BEAKER) (test 0 % doqd=171) BASOPHILS RELATIVE PERCENT (BEAKER) (test 0 % ysfs=595) NEUTROPHILS ABSOLUTE COUNT (BEAKER) (test 12.18 K/ L 1.78-5.38 bwkg=100) LYMPHOCYTES ABSOLUTE COUNT (BEAKER) (test 0.54 K/ L 1.32-3.57 jkeh=912) MONOCYTES ABSOLUTE COUNT (BEAKER) (test 1.28 K/ L 0.30-0.82 sent=330) EOSINOPHILS ABSOLUTE COUNT (BEAKER) (test 0.00 K/ L 0.04-0.54 kvbo=341) BASOPHILS ABSOLUTE COUNT (BEAKER) (test 0.01 K/ L 0.01-0.08 muby=440) IMMATURE GRANULOCYTES-RELATIVE PERCENT (BEAKER) 0 % 0-1 (test jpwn=4283) BLOOD GAS, [id number] 04:48:00 Test Item Value Reference Range Comments PH ARTERIAL (BEAKER) (test puev=696) 7.49 7.35-7.45 PCO2 ARTERIAL (BEAKER) (test pjnp=225) 34 mmHg 35-45 PO2 ARTERIAL (BEAKER) (test arwc=830) 216 mmHg 80-90 O2 SATURATION ARTERIAL (BEAKER) (test bllp=301) 99.5 % 96.0-97.0 HCO3 ARTERIAL (BEAKER) (test alwn=212) 26 mmol/L 21-29 BASE EXCESS ARTERIAL (BEAKER) (test iguc=234) 2.7 mmol/L -2.0-3.0 PATIENT TEMPERATURE (BEAKER) (test krtp=8304) 38.0 C FIO2 (BEAKER) (test nxoj=4145) 50.0 % POCT-GLUCOSE [id number] 23:40:00 Test Item Value Reference Range Comments POC-GLUCOSE METER (BEAKER) 135 mg/dL 70-110 TESTED AT [address] (test cpii=3860) [facility] [id number] MENINGITIS/ENCEPHALITIS [id number] 20:12:00 Test Item Value Reference Range Comments ESCHERICHIA COLI K1 (test tmjc=[id number]) Not detected Not detected HAEMOPHILUS INFLUENZAE (test epnh=7274606) Not detected Not detected LISTERIA MONOCYTOGENES (test wqjl=7754823) Not detected Not detected NEISSERIA MENINGITIDIS (test lvzt=6288979) Not detected Not detected STREPTOCOCCUS AGALACTIAE (test hsgj=5485632) Not detected Not detected STREPTOCOCCUS PNEUMONIAE (test zqkg=1869321) Not detected Not detected CYTOMEGALOVIRUS (CMV) (test dazf=6923734) Not detected Not detected ENTEROVIRUS (test bhpb=4659733) Not detected Not detected HUMAN HERPESVIRUS 6 (HHV-6) (test ngjo=7302159) Not detected Not detected HERPES SIMPLEX VIRUS 1(HSV-1) (test Not detected Not detected fuym=1719070) HERPES SIMPLEX VIRUS 2(HSV-2) (test Not detected Not detected uxrv=7419196) HUMAN PARECHOVIRUS (test vezj=6543911) Not detected Not detected VARICELLA-ZOSTER VIRUS (VZV) (test Not detected Not detected hxzt=3091072) CRYPTOCOCCUS NEOFORMANS/GATTII (test Not detected Not detected ynll=8368501) The performance of this test has not been specifically evaluated for CSF specimens from immunocompromised individuals. The effect of antibiotic treatment on test performance has not been evaluated. Other viruses and bacteria not targeted by this PCR panel cannot be excluded; therefore, clinical correlation and follow up of serology, culture results, and other molecular studies may be required. This sample was tested at the [facility] using the [employer] MeningitisEncephalitis Panel. It is FDA cleared and has been verified and approved by the [facility] for clinical use. This laboratory is CLIA- certified and [employer] ([employer])-accredited to perform high complexity testing.POCT-GLUCOSE [id number] 18:44:00 Test Item Value Reference Range Comments POC-GLUCOSE METER (BEAKER) 122 mg/dL 70-110 TESTED AT [address] (test bmrh=3886) [place] [address] POCT-GLUCOSE [id number] 18:44:00 Test Item Value Reference Range Comments POC-GLUCOSE METER (BEAKER) 118 mg/dL 70-110 TESTED AT [address] (test nfzp=5561) [place] [address] [id number] 17:59:00 Test Item Value Reference Range Comments POTASSIUM (BEAKER) (test uibp=409) 3.8 meq/L 3.5-5.1 8 hours after PO replacement [id number] 17:59:00 Test Item Value Reference Range Comments MAGNESIUM (BEAKER) (test veze=682) 2.1 mg/dL 1.6-2.6 8 hours after PO replacement completedVANCOMYCIN LEVEL, [id number] 17:58: 00 Test Item Value Reference Range Comments VANCOMYCIN TROUGH (BEAKER) (test bsor=750) 6.9 ug/mL 10.0-20.0 EEG AWAKE AND [id number] 17:24:00Date(s) of EE10/19/2018 DATE OF REPORT : 10/19/2018 ACC: [id number] EEG Number: [id number] Test Location:Inpatient ICU Start time: 10/19/2018 15:43 Stop time: 10/19/2018 16:11 ICD-10: R41.82 CPT Code: 15796 HISTORY: 58 y.o. male with no significant past medical history who was transferred to [facility] after three weeks of worsening back pain, found to have meningitis. MEDICATIONS THAT COULD AFFECT EEG: Amphotericin, ampicillin, ceftriaxone, vancomycin TECHNICAL SUMMARY: This is a digital video-EEG recorded with 32 input channels reviewed with bipolar and referential montages using the modified combinatorial system nomenclature. DESCRIPTION OF RECORD: During the stimulated state, there is no posterior dominant rhythm and no frequency amplitude gradient. The background activity consists of diffuse, moderate amplitude, 2-3 Hz delta, 6-8 Hz, as well as 10-14 Hz activity with a relative attenuation of faster frequencies over the left hemisphere. The EEG is not reactive to stimulation. There is spontaneous reactivity of the background. Sleep architectures are not present in this study. SIGNIFICANT VIDEO EVENTS : None SIGNIFICANT ELECTROCARDIOGRAM EVENTS: Artifact obstructs electrocardiogram assessment HV: Hyperventilation was not performed. PHOTIC STIMULATION: Photic stimulation was done from 1-31 Hz; no photic driving was seen; photoparoxysmal responses were absent. IMPRESSION: EEG inComa 1. Continuous slow, generalized and attenuated left hemisphere 2. There is no evidence for epileptiform abnormalities, including absence of electrographic seizures. COMMENT: The EEG is consistent with an underlying moderate to severe encephalopathy with superimposed focal dysfunctionover the left hemisphere. An EEG without epileptiform discharges does not exclude the possibility ofepilepsy. The patient was transitioned to continuous EEG monitoring. Tomas Son MD Neurophysiology Fellow Derrick Mccray MD, MS Neurophysiology/Epilepsy Attending CSF CELL COUNT [id number] 14:15: 00 Test Item Value Reference Range Comments APPEARANCE CSF (BEAKER) (test Hazy Clear tdss=491) COLOR CSF (BEAKER) (test bjee=212) Colorless Colorless RBC CSF (BEAKER) (test letu=787) 710 /cu mm 0-5 WBC CSF (BEAKER) (test nsbf=2552) 4754 /cu mm <=5 RBCS FRESH (BEAKER) (test yxfq=7959) 50% Fresh, 50% Crenated NUMBER OF CELLS DIFF'D (BEAKER) 100 (test eiwt=8701) NEUTROPHIL, CSF (BEAKER) (test 94 % 0-5 usyx=286) LYMPHS CSF (BEAKER) (test cafs=211) 2 % 40-80 MONO/MACROPHAGE CSF (BEAKER) (test 4 % 15-45 qasx=609) EOSINOPHILS CSF (BEAKER) (test 0 % <=0 kjya=287) BASO CSF (BEAKER) (test burt=694) 0 % <=0 TUBE NUMBER CSF (BEAKER) (test 2 fhcg=6674) PROTEIN, [id number] 13:17:00 Test Item Value Reference Range Comments PROTEIN CSF (BEAKER) (test yiif=338) > mg/dL 15-45 GLUCOSE, [id number] 12:59:00 Test Item Value Reference Range Comments GLUCOSE CSF (BEAKER) (test vncs=295) 7 mg/dL 40-70 HYACINTH INK [id number] 12:45:00 Test Item Value Reference Range Comments HYACINTH INK (BEAKER) No encapsulated yeast seen No encapsulated yeast seen (test xugy=8507) POCT-GLUCOSE [id number] 12:04:00 Test Item Value Reference Range Comments POC-GLUCOSE METER (BEAKER) 134 mg/dL 70-110 TESTED AT [address] (test xxie=0627) [facility] [address] RAD, ABDOMEN/KUB, 1 VIEW [id number] 11:03:00Reason for exam:->NG placement confirmationFINAL REPORT EXAM: AP abdominal radiograph HISTORY PROVIDED: Nasogastric tubeplacement confirmation COMPARISON: None available IMPRESSION:The tip of a feeding tube projects overthe expected location of the distal stomach. The bowel gas pattern is nonspecific. While no definitefree air is seen, this examination is insensitive for the detection of free air. No acute osseous abnormality. Degenerative changes of the spine are noted with leftward convex curvature. Signed: Darling Alas MDReport Verified Date/Time: 10/19/2018 11:03:50 Reading Location: [facility] SPIN/ CONCENTRATION [id number] 09:15:00 Test Item Value Reference Range Comments CONCENTRATION CHARGED (BEAKER) (test egdz=6121) Done RAD, CHEST, 1 VIEW, NON [id number] 07:14:00Post-intubationReason for exam:-& gt;intubationShould this be performed at the bedside?->YesFINAL REPORT Chest, portable AP view History: Intubation Comparison: 10/18/2018 IMPRESSION: The tip of the endotracheal tube is at the level of clavicles. The cardiac borders arestable. There is no focal consolidation, sizable pleural effusion, or pneumothorax. Signed: Elvis Foreman Verified Date/Time: 10/19/2018 07:14:43 Reading Location: [facility] Radiology Reading Room Electronically signed by: ELVIS FOREMAN on 07:14 AMPOCT-GLUCOSE [id number] 05:59:00 Test Item Value Reference Range Comments POC-GLUCOSE METER (BEAKER) 116 mg/dL 70-110 TESTED AT [address] (test ntvo=5614) [facility] [address] CBC W/PLT COUNT & AUTO [id number] 04:34:00 Test Item Value Reference Range Comments WHITE BLOOD CELL COUNT (BEAKER) (test enjf=057) 17.9 K/ L 3.5-10.5 RED BLOOD CELL COUNT (BEAKER) (test fnem=423) 3.53 M/ L 4.63-6.08 HEMOGLOBIN (BEAKER) (test abee=150) 10.7 GM/DL 13.7-17.5 HEMATOCRIT (BEAKER) (test eyed=597) 31.9 % 40.1-51.0 MEAN CORPUSCULAR VOLUME (BEAKER) (test kdyh=876) 90.4 fL 79.0-92.2 MEAN CORPUSCULAR HEMOGLOBIN (BEAKER) (test 30.3 pg 25.7-32.2 benh=283) MEAN CORPUSCULAR HEMOGLOBIN CONC (BEAKER) (test 33.5 GM/DL 32.3-36.5 daao=025) RED CELL DISTRIBUTION WIDTH (BEAKER) (test 12.4 % 11.6-14.4 fkha=362) PLATELET COUNT (BEAKER) (test jrzo=606) 174 K/CU MM 150-450 MEAN PLATELET VOLUME (BEAKER) (test zlzn=401) 11.0 fL 9.4-12.4 NUCLEATED RED BLOOD CELLS (BEAKER) (test 0 /100 WBC 0-0 eqrs=238) NEUTROPHILS RELATIVE PERCENT (BEAKER) (test 88 % wrmd=119) LYMPHOCYTES RELATIVE PERCENT (BEAKER) (test 3 % pwqz=646) MONOCYTES RELATIVE PERCENT (BEAKER) (test 9 % wkkn=254) EOSINOPHILS RELATIVE PERCENT (BEAKER) (test 0 % ygsg=043) BASOPHILS RELATIVE PERCENT (BEAKER) (test 0 % dvln=184) NEUTROPHILS ABSOLUTE COUNT (BEAKER) (test 15.68 K/ L 1.78-5.38 osmb=183) LYMPHOCYTES ABSOLUTE COUNT (BEAKER) (test 0.44 K/ L 1.32-3.57 mecl=050) MONOCYTES ABSOLUTE COUNT (BEAKER) (test 1.58 K/ L 0.30-0.82 qnzt=798) EOSINOPHILS ABSOLUTE COUNT (BEAKER) (test 0.00 K/ L 0.04-0.54 neof=298) BASOPHILS ABSOLUTE COUNT (BEAKER) (test 0.02 K/ L 0.01-0.08 tbuc=084) IMMATURE GRANULOCYTES-RELATIVE PERCENT (BEAKER) 1 % 0-1 (test rygt=3427) [id number] 04:29:00 Test Item Value Reference Range Comments MAGNESIUM (BEAKER) (test wqwf=932) 1.5 mg/dL 1.6-2.6 BASIC METABOLIC [id number] 04:29:00 Test Item Value Reference Range Comments SODIUM (BEAKER) (test 134 meq/L 136-145 ytea=589) POTASSIUM (BEAKER) (test 3.4 meq/L 3.5-5.1 vhse=594) CHLORIDE (BEAKER) (test 104 meq/L 98-107 cxry=559) CO2 (BEAKER) (test 23 meq/L 22-29 kgjc=277) BLOOD UREA NITROGEN 16 mg/dL 7-21 (BEAKER) (test qzxv=532) CREATININE (BEAKER) (test 0.79 mg/dL 0.57-1.25 dlan=969) GLUCOSE RANDOM (BEAKER) 124 mg/dL 70-105 (test mpqz=186) CALCIUM (BEAKER) (test 8.9 mg/dL 8.4-10.2 lozm=985) EGFR (BEAKER) (test 100 mL/min/1.73 sq m ESTIMATED GFR IS NOT qhuo=4246) ACCURATE CREATININE CLEARANCE IN PREDICTING GLOMERULAR FILTRATION RATE. ESTIMATED GFR IS NOT APPLICABLE FOR DIALYSIS PATIENTS. BLOOD GAS, [id number] 04:10:00 Test Item Value Reference Range Comments PH ARTERIAL (BEAKER) (test qknu=475) 7.47 7.35-7.45 PCO2 ARTERIAL (BEAKER) (test ofxi=095) 37 mmHg 35-45 PO2 ARTERIAL (BEAKER) (test ovll=805) 280 mmHg 80-90 O2 SATURATION ARTERIAL (BEAKER) (test fmza=092) 99.7 % 96.0-97.0 HCO3 ARTERIAL (BEAKER) (test zvqe=873) 26 mmol/L 21-29 BASE EXCESS ARTERIAL (BEAKER) (test njvw=607) 2.4 mmol/L -2.0-3.0 PATIENT TEMPERATURE (BEAKER) (test lnwy=6797) 37.5 C FIO2 (BEAKER) (test ekbw=2214) 50.0 % POCT-GLUCOSE [id number] 23:37:00 Test Item Value Reference Range Comments POC-GLUCOSE METER (BEAKER) 136 mg/dL 70-110 TESTED AT [facility] [address] [facility] (test jemw=1156) [facility] [address] CT, SINUS, [id number] 21:48:00FINAL REPORT EXAM: CT SINUS WITHOUT CONTRAST INDICATION: Sinusitis, recurring, possible surgery TECHNIQUE: Axial CT images are obtained through the paranasal sinuses without intravenous contrast. Coronal and sagittal reformatted images are provided. DOSE REDUCTION: Dose modulation, iterative reconstruction, and/or weight-based adjustment of the mA/kV was utilized to reduce the radiation dose to as low as reasonably achievable. COMPARISON prior MRI brain FINDINGS: RIGHT: RIGHT FRONTAL SINUS: Clear RIGHT FRONTAL RECESS: Clear. Narrowed by a large agger nasi cell anteriorly RIGHT MAXILLARY SINUS: Mild mucosal thickeningRIGHT MAXILLARY SINUS OUTFLOW TRACT: ClearRIGHT ANTERIOR ETHMOIDS: Some opacified cellsRIGHT POSTERIOR ETHMOIDS: Opacified LEFT: LEFT FRONTAL SINUS: Opacified with osteoneogenesisLEFT FRONTAL RECESS: Opacified. Narrowed by an agger and supra agger cell anteriorly LEFT MAXILLARY SINUS: OpacifiedLEFT MAXILLARY SINUS OUTFLOW TRACT: OpacifiedLEFT ANTERIOR ETHMOIDS: OpacifiedLEFT POSTERIOR ETHMOIDS : Opacified SPHENOID SINUSES AND SKULL BASE:RIGHT SPHENOID SINUS: OpacifiedRIGHT SPHENOID OUTFLOW TRACK: OpacifiedLEFT SPHENOID SINUS: OpacifiedLEFT SPHENOID OUTFLOW TRACK: OpacifiedONODI CELL: AbscessANTERIOR SKULL BASE: CRIBRIFORM PLATES, LATERAL LAMELLA AND ETHMOID ROOFS: Thinned, deossified and possibly dehiscent. There is marked thinning of the lateral lamella, cribriform plates and ethmoid roofs bilaterally.ANTERIOR ETHMOID ARTERY CANAL: Exposed bilaterally OTHER SOFT TISSUES:NASAL CAVITY:The left superior nasal cavity is opacified with presumed mucoid contents extending medial and lateral to the middle and superior turbinatesNASAL SEPTUM: Minimal 1 mm rightward nasal septal deviationTYMPANOMASTOID CAVITIES: Bilateral trace mastoid effusions. No CT evidence of mastoiditis. Left pterygoid palatine fossa demonstrates increased density relative to the contralateral right side. This may be secondary to pterygoid plexus venous engorgement in the setting of cavernous sinus thrombosis, although, extra sinus disease is difficult to exclude. Previously described T1 hypointense, T2 hyperintense nonenhancing lesion at the lateral margin of the right sphenoid sinus is seen to represent extensive lateral pneumatization of the sphenoid sinus cavity, which is opacified. No meningocele is identified. There is marked thinning, deossification with possible dehiscent of the sphenoid sinus echols (axial bone algorithm image 120). Additionally, there is pneumatization of the anterior clinoid processes, which demonstrate mucosal thickening contiguous with the sphenoid sinus. The left cavernous sinus does not demonstrate appropriate contrast filling, compatible with cavernous sinus thrombosis. Previously described dural thickening along the left anterior and middle cranial fossa is better demonstrated on prior MRI IMPRESSION: 1. Left cavernous sinus thrombosis. Dural thickening and enhancement within the adjacent left anterior middle cranial fossa is better demonstrated on prior MRI. Overall, findings are concerning for meningitis arising from the paranasal sinuses (presumably the adjacent sphenoid sinuses). There is multifocal osseous thinning versus dehiscent along the sphenoid sinus echols. Additionally, there is pneumatization of the anterior clinoid processes,which are opacified in contiguity with the remainder of the sphenoid sinuses. Areas of osseous thinning traversed the expected locations of the medial and lateral opticocarotid recesses2. Osteoneogenesis involving the left frontal sinus, left maxillary sinus and the outflow tracts extending to the middle meatus. Findings are suggestive of chronic sinusitis with obstruction of the level of the middle meatus3. Previously described signal characteristics of the left frontal sinus seen on prior MRI are not well elucidated by CT. Please refer to dedicated MRI sinus/ face to exclude solid lesion (mass) such as IPAP4. Marked thinning of the anterior skull base, which may pose a consideration of surgical intervention is sought. Additionally, the medial aspect of the anterior ethmoid artery canals are exposed and thinned bilaterally. Signed: Alberta Martinez MDReport Verified Date/Time: 10/18/2018 21:48:04 Reading Location: [address] Neuro Reading Room 09: 48 PMCT, CTANG [id number] 21:22:00FINAL REPORT EXAM: CT, CT Angio, Brain. CLINICAL HISTORY: Decreased alertness COMPARISON: None. TECHNIQUE: CT venogram of the head was performed with intravenous contrast. MIPreformatted images were obtained. This exam was performed according to our departmental dose optimization program which includes automated exposure control, adjustment of the mA and/or kV according to patient' s size and/or use of iterative reconstructive technique. FINDINGS: There is a filling defectin the left cavernous sinus suspicious for thrombosis. There is thickening of the adjacent dura in the left middle cranial fossa suspicious for meningitis. The left cavernous internal carotid artery is patent. The [place] is unremarkable. The remainder of the deep venous structures as well as the superficial venous structures are patent without evidence of thrombosis. There is pansinus mucosal inflammatory disease with complete opacification of the left knee, bilateral sphenoid and left ethmoid air sinuses. There is near- complete opacification of the right ethmoid and left frontal sinuses. There is mucoperiosteal thickening of the left maxillary sinus in keeping with chronic mucosal inflammatory disease. There are trace bilateral mastoid effusions. There is an indwelling endotracheal tube IMPRESSION: Filling defect in left cavernous sinus suspicious for thrombosis. Thickening of the adjacent dura in the left middle cranial fossa suspicious for meningitis.Patent left cavernous internal carotid artery.Pansinus mucosal inflammatory disease. Correlate clinically for acute sinusitis.Trace bilateral mastoid effusions. Signed: Kade Pennington MDReport Verified Date/Time: 10/18/2018 21:22:28 HIV-1 ANTIGEN WITH HIV -1/2 [id number] 19:28:00 Test Item Value Reference Range Comments HIV-1 ANTIGEN WITH HIV 1\\T\\2 ANTIBODY (2) Nonreactive Nonreactive (BEAKER) (test pkbz=7367) POCT-GLUCOSE [id number] 18:18:00 Test Item Value Reference Range Comments POC-GLUCOSE METER (BEAKER) 148 mg/dL 70-110 TESTED AT [facility] [address] [facility] (test xsuc=7334) [facility] [address] MR, BRAIN, [id number] 17:19:00FINAL REPORT MR, BRAIN , WITH \\T\\ WITHOUT CONTRAST INDICATION: Headache, new, meningitis or encephalitis suspected Technique: MRI of the brain utilizing axial T1, T2, FLAIR , GRE, DWI, sagittal T1; and postgadolinium axial, sagittal, and coronal T1- weighted images. COMPARISON: None FINDINGS: Acute left striata capsular infarct involving the lentiform nucleus and thalamus. There is opacification of several paranasal sinuses including the sphenoid sinuses, bilateral posterior ethmoid air cells and the left frontal, maxillary sinus and anterior ethmoid air cells.T1 hypointense, [id number] nonenhancing structure arising from the right sphenoid, favored to represent a meningocele (which would be better evaluated when comparison CT is available). There is abnormal thickening and enhancement of the left cavernous sinus, Meckel's cave and the left anterior and middle cranial fossa dura, concerning for superimposed meningitis. Left cavernous sinus thrombosis is difficult to exclude. Flow voids are maintained within the cavernous ICAs. There is T1 hypointense, T2 hyperintense enhancing material within the left frontal sinus extending to the outflow tract, and possibly to the left anterior ethmoid air cells, incompletely imaged in this examination centered to the brain. Primary sinonasal mass lesion in this location cannot be excluded based on provided imaging. Recommend correlation with CT maxillofacial and dedicated MRI of the paranasal sinuses. Remainder the brain parenchyma is unremarkable. No hydrocephalus. Bilateral mastoid effusions. Orbits are within normal limits. Additional findings: None. IMPRESSION: Acute left striatocapsular infarct as per above Findings concerning for meningitis (potentially with paranasal sinus etiology) with opacification of several paranasal sinuses as per above, and abnormal enhancement of the left anterior middle cranial fossa dura, along the margin of the left cavernous sinus and Meckel's cave T1 hypointense, T2 hyperintense apparently enhancing material within the left frontal sinus. Although this may conceivably represent polypoid disease, recommend correlation with dedicated CT and MR sinus to exclude mass lesion. Findings regarding infarct and concern for meningitis discussed with neurology by Dr. Martinez 4:41 PM Signed: Alberta Martinez Verified Date/Time: 10/18/2018 17:19:24 Reading Location: [facility] Radiology Reading Room RAD, CHEST, 1 VIEW, NON [id number] 14:52: 00Post-intubationReason for exam:->intubationShould this be performed at the bedside?->YesFINAL REPORT TECHNIQUE: Frontal chest radiograph dated 10/18/2018. CLINICAL HISTORY: Intubation COMPARISON STUDY: None IMPRESSION:The endotracheal tube is 7.9 cm above the aaron. Enteric tube is seen with the tip below the edge of the film. No focal consolidation. No pleural effusion or pneumothorax. Cardiomediastinal silhouette is normal in size. No pulmonary edema. Bones areosteopenic. No fracture. Signed: Maggie Lo Verified Date/Time: 10/18/2018 14:52:02 Reading Location: [facility] Reading Room COMPREHENSIVE METABOLIC [id number] 14:11:00 Test Item Value Reference Range Comments TOTAL PROTEIN (BEAKER) 6.5 gm/dL 6.0-8.3 (test svwi=889) ALBUMIN (BEAKER) (test 3.4 g/dL 3.5-5.0 nxtj=0935) ALKALINE PHOSPHATASE 63 U/L 40-150 (BEAKER) (test cfhd=630) BILIRUBIN TOTAL (BEAKER) 0.8 mg/dL 0.2-1.2 (test ljua=948) SODIUM (BEAKER) (test 135 meq/L 136-145 stxq=839) POTASSIUM (BEAKER) (test 3.9 meq/L 3.5-5.1 ozil=727) CHLORIDE (BEAKER) (test 103 meq/L 98-107 nueh=886) CO2 (BEAKER) (test 26 meq/L 22-29 bkyb=727) BLOOD UREA NITROGEN 17 mg/dL 7-21 (BEAKER) (test majq=834) CREATININE (BEAKER) (test 0.83 mg/dL 0.57-1.25 yhkh=688) GLUCOSE RANDOM (BEAKER) 138 mg/dL 70-105 (test uole=517) CALCIUM (BEAKER) (test 9.0 mg/dL 8.4-10.2 pfce=140) AST (SGOT) (BEAKER) (test 11 U/L 5-34 lmpu=425) ALT (SGPT) (BEAKER) (test 12 U/L 6-55 gqep=954) EGFR (BEAKER) (test 95 mL/min/1.73 sq m ESTIMATED GFR IS NOT ejqo=6066) ACCURATE CREATININE CLEARANCE IN PREDICTING GLOMERULAR FILTRATION RATE. ESTIMATED GFR IS NOT APPLICABLE FOR DIALYSIS PATIENTS. TROPONIN [id number] 14:04:00 Test Item Value Reference Range Comments TROPONIN I (BEAKER) (test lxrq=089) < ng/mL 0.00-0.03 Troponin I (TnI) levels must be interpreted in the context of the presenting symptoms and the clinical findings. Elevated TnI levels indicate myocardial damage, but are not specific for ischemic heart disease. Elevated TnI levels are seen in patients with other cardiac conditions (including myocarditis and congestive heart failure), and slight TnI elevations occur in patients with other conditions, including sepsis, renal failure, acidosis, acute neurological disease, and persistent tachyarrhythmia.[id number] 13:41:00 Test Item Value Reference Range Comments PARTIAL THROMBOPLASTIN TIME (BEAKER) (test 33.8 seconds 22.5-36.0 waao=293) BLOOD GAS, [id number] 13:40:00 Test Item Value Reference Range Comments PH ARTERIAL (BEAKER) (test hdti=665) 7.46 7.35-7.45 PCO2 ARTERIAL (BEAKER) (test vxnp=388) 36 mmHg 35-45 PO2 ARTERIAL (BEAKER) (test ztne=171) 389 mmHg 80-90 O2 SATURATION ARTERIAL (BEAKER) (test ftul=065) 99.8 % 96.0-97.0 HCO3 ARTERIAL (BEAKER) (test lniw=932) 25 mmol/L 21-29 BASE EXCESS ARTERIAL (BEAKER) (test npfb=592) 1.8 mmol/L -2.0-3.0 PATIENT TEMPERATURE (BEAKER) (test chdl=4537) 37.6 C FIO2 (BEAKER) (test jiib=2811) 100.0 % PROTHROMBIN [id number] 13:40:00 Test Item Value Reference Range Comments PROTIME (BEAKER) (test erqy=656) 14.4 seconds 11.9-14.2 INR (BEAKER) (test qgtr=201) 1.2 <=5.9 Effective 08/31/2018: PT Reference Range ChangeNew: 11.9-14.2 Previous: 11.7- 14.7RECOMMENDED COUMADIN/WARFARIN INR THERAPY RANGESSTANDARD DOSE: 2.0-3.0 Includes: PROPHYLAXIS for venous thrombosis, systemic embolization; TREATMENT for venous thrombosis and/or pulmonary embolus.HIGH RISK: Target INR is2.5-3.5 for patients wiht mechanical heart valves.
== END 2019-02-06 23:40 | disposition short-term general hospital (02) ==
LOC: ER 16:13
DX: S72.141A Displaced intertrochanteric fracture of right femur, initial encounter for closed fracture (principal); W19.XXXA Unspecified fall, initial encounter; Y93.01 Activity, walking, marching and hiking; Y92.9 Unspecified place or not applicable
CPT/HCPCS: 36415; 72170; 72192; 80048; 80076; 85025; 85610; 99285